=== PATIENT | male | born 1930 | race Caucasian/White ===

== ENCOUNTER 2017-10-10 10:19 | Day surgery (SDC) | payer OTHER, BC ==
[2017-10-09 14:23] VITALS: BMI 27.1
[2017-10-10] MEDS ORDERED: PROPOFOL 20 ML ONE ×2 (12:26)
[2017-10-10 13:26] VITALS: TEMP 97.9
[2017-10-10 14:48] VITALS: BP 146/70; PULSE 60
== END 2017-10-10 15:41 | disposition home or self-care (01) ==
LOC: JASU-ENDO 10:19
PROVIDERS: ATTEND Internal Medicine Gastroenterology
PROC: 0DB68ZX Excision of Stomach, Via Natural or Artificial Opening Endoscopic, Diagnostic (ICD-10-PCS; 2017-10-10)
PROC: 0DB98ZX Excision of Duodenum, Via Natural or Artificial Opening Endoscopic, Diagnostic (ICD-10-PCS; principal; 2017-10-10 12:15)
DX: K29.70 Gastritis, unspecified, without bleeding (principal); K29.80 Duodenitis without bleeding
CPT/HCPCS: 88305-TC; 88342-TC

== ENCOUNTER 2018-01-02 13:32 | Inpatient (IN) | payer OTHER, BC ==
[2018-01-02 14:37] LABS: BASO % 0.4 % (0-2.0); HEMATOCRIT 41.8 % (35.4-49); LYMPH % 13.9 % (8-40); MCH 30.8 pg (25.7-33.7); MCHC 33.4 g/dl (32.0-35.9); MEAN CELL VOLUME 92.2 fl (80-96); MEAN PLT VOLUME 8.4 fl (7.5-11.1); MONO % 12.3 % (3.8-10.2); NEUT % 73.4 % (42.8-82.8); PLATELET COUNT 172 K/MM3 (134-434); RBC 4.54 M/mm3 (4.00-5.60); RDW 14.2 % (11.9-15.9); WHITE BLOOD COUNT 8.2 K/mm3 (4.0-10.0)
[2018-01-02] MEDS ORDERED: SODIUM CHLORIDE 1,000 ML IV STA (14:38)
[2018-01-02 14:39] LABS: VENOUS PH 7.4 (7.32-7.42); VENOUS PO2 39.1 mmHg (28-48)
--- NOTE | 2018-01-02 14:46 | PDOC ---
History of Present Illness - General Chief Complaint: Weakness Stated Complaint: WEAKNESS,VATIGUE Time Seen by Provider: 01/02/18 13:44 History Source: Patient Exam Limitations: Other (pt seems altered/confused) - History of Present Illness Initial Comments: 01/02/18 14:42 *difficult to obtain HPI from patient, he seems altered/confused. HPI: Pt is an 87yo m with PMH of hld, depression, sleep apnea, Lyme disease BIBA to ED after friends at [employer] found pt sleeping in his car and were worried. Pt says he has been feeling more fatigued, has no energy, and doesn't feel like eating or doing anything for the past several months. Pt says he usually sleeps in his car because his house "is a mess". Pt lives alone. He denies SI, HI, hallucinations, chest pain, cough, sob, headache, changes in vision, throat pain , abdominal pain, n/v/d. PMH: As per HPI. PSH: rotator cuff surgery Past illnesses: Lyme disease 2-3 years ago Meds: Buproprion Allergies: PCN Social: denies Past History - Past Medical History Allergies/Adverse Reactions: Allergies Allergy/AdvReac Type Severity Reaction Status Date / Time Penicillins Allergy Verified 01/02/18 13:57 Home Medications: Ambulatory Orders Rosuvastatin Calcium [Crestor] 20 mg PO DAILY 11/12/13 Bupropion HCl [Wellbutrin Sr] 150 mg PO DAILY 10/09/17 GI Disorders: Yes (GERD) Hypercholesterolemia: Yes - Surgical History Orthopedic Surgery: Yes (RIGHT SHOULDER SX WITH TITANIUM TAMIE) - Suicide/Smoking/Psychosocial Hx Smoking History: Never smoked Information on smoking cessation initiated: No Hx Alcohol Use: No Drug/Substance Use Hx: No Substance Use Type: None Hx Substance Use Treatment: No Review of Systems - Review of Systems Able to Perform ROS?: Yes Comments:: 01/02/18 16:18 ROS: Constitutional: fatigue HEENT:No Rhinorrhea, nasal congestion, visual changes, eye itching, earache, headache, sore throat, neck pain, Cardiovascular: No chest pain, syncope, palpitations Respiratory: No Cough, SOB, Hemoptysis Gastrointestinal: No Abdominal pain, Nausea, Vomiting, Constipation, Diarrhea, bloody stools Genitourinary: Frequency. No Dysuria, Hematuria, incontinence Musculoskeletal: No Myalgia, arthralgia, ROM, joint stiffness, weakness, Skin: No rashes Neurologic: No Headache, Dizziness, Numbness, Weakness, or Tingling Genital: No testicular pain Psychiatric: No Hallucinations. No SI or HI *Physical Exam - Vital Signs Last Vital Signs Temp Pulse Resp BP Pulse Ox 101.8 F H 81 18 129/73 95 01/02/18 13:50 01/02/18 13:50 01/02/18 13:50 01/02/18 13:50 01/02/18 13:50 - Physical Exam Comments: 01/02/18 16:21 Pt falling asleep in bed. Physical Exam: General Appearance: Nourished. No Apparent Distress HEENT: Atraumatic, normocephalic, EOMI, CANELO. No Conjunctival Injection, Scleral Icterus, Pharyngeal Erythema, Tonsillar Exudate, Tonsillar Erythema. Neck: No Cervical Lymphadenopathy, No tracheal deviation Respiratory/Chest: Lungs Clear, Normal Breath Sounds. No Crackles, Rales, Rhonchi, Wheezing Cardiovascular: Regular Rhythm, Regular Rate, Peripheral pulses palpable bilaterally. No JVD, Murmur, Gallops, Rubs, Carotid Bruit, Edema, Varicose Veins Gastrointestinal/Abdominal: Normal Bowel Sounds, Soft. No Guarding, Rebound, Tenderness Musculoskeletal: Full ROM No CVA Tenderness, No tenderness, No joint swelling Extremity: Normal Capillary Refill Integumentary: Skin appears to be slightly jaundiced. Dry, Warm. No rashes, lesions Neurologic: Aphasic. 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, Fully Oriented, Alert, Normal Mood/ Affect, Normal Response, Motor Strength 5/5, Full sensation, 2+ Reflexes : No rashes, ulcerations, discharge ED Treatment Course - LABORATORY CBC & Chemistry Diagram: 01/02/18 13:50 01/02/18 13:50 - ADDITIONAL ORDERS Additional order review: Laboratory Results 01/02/18 13:50 VBG pH 7.40 POC VBG pCO2 43.0 POC VBG pO2 39.1 Mixed VBG HCO3 26.3 H - RADIOLOGY Radiology Studies Ordered: Category Date Time Status HEAD CT WITHOUT CONTRAST [CT] Stat CT Scan 01/02/18 14:31 Ordered CHEST X-RAY PORTABLE* [RAD] Stat Radiology 01/02/18 14:23 Taken Medical Decision Making - Medical Decision Making 01/02/18 16:44 87yo m with PMH of hld, depression BIBA from [employer] because pt was not himself. Pt complaining of several months of fatigue. Aphasic Vitals: febrile at 101, normotensive, not tachycardic PE: aphasia, hard to follow AOx3. h/o Lyme Pt febrile and seems to have ams although we do not know baseline. Ordered sepsis workup and head CT. Pt's cousin, Raul came into the room. 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 Labs: no WBC, electrolytes wnl. UA: 1+blood with 15 RBC. CXR: no acute pathology, no changes compared to xray done in 2013 CT head: *DC/Admit/Observation/Transfer - Referrals Referrals: Tia Richards MD [Primary Care Provider] - - Patient Instructions - Post Discharge Activity
[2018-01-02 14:48] LABS: INR 1.09 (0.83-1.09); PROTHROMBIN TIME (PATIENT) 12.9 SEC (9.7-13.0)
[2018-01-02 14:51] LABS: ACTIVATED PTT 30.3 SECONDS (25.2-36.5)
[2018-01-02 14:58] LABS: ALBUMIN 3.4 g/dl (3.4-5.0); ALK PHOS 51 U/L (45-117); ANION GAP 5 MMOL/L (8-16); BILIRUBIN,TOTAL 0.7 mg/dL (0.2-1); BLOOD UREA NITROGEN 16 mg/dL (7-18); CALCIUM 8.6 mg/dL (8.5-10.1); CHLORIDE 106 mmol/L (98-107); CO2 24 mmol/L (21-32); GLUCOSE,RANDOM 124 mg/dL (74-106); POTASSIUM 3.9 mmol/L (3.5-5.1); SGOT/AST 20 U/L (15-37); SGPT/ALT 23 U/L (13-61); SODIUM 134 mmol/L (136-145); TOT PROT 6.8 g/dl (6.4-8.2)
[2018-01-02] MEDS ORDERED: ACETAMINOPHEN 1000 MG/100 ML VIAL (NON FORMULARY) IVPB ONE (14:59)
[2018-01-02] MEDS ORDERED: ACETAMINOPHEN INJECTION 100 ML IVPB ONE (15:06)
[2018-01-02 15:11] LABS: URINE APPEARANCE CLEAR; URINE BILIRUBIN NEGATIVE (<2.0 mg/dL); URINE COLOR YELLOW; URINE GLUCOSE (UA) NEGATIVE (NEGATIVE); URINE KETONE TRACE (NEGATIVE); URINE LEUK ESTERASE NEGATIVE (NEGATIVE); URINE NITRITE NEGATIVE (NEGATIVE)
[2018-01-02 15:12] LABS: URINE PROTEIN 1+ (NEGATIVE)
[2018-01-02 15:15] LABS: EPI CELLS RARE /HPF (FEW); URINE MUCUS FEW
--- NOTE | 2018-01-02 17:14 | PDOC ---
Attending Attestation - Resident Resident Name: CandiceKey - ED Attending Attestation I have performed the following: I have examined & evaluated the patient, The case was reviewed & discussed with the resident, I agree w/resident's findings & plan, Exceptions are as noted - HPI HPI: 01/02/18 17:10 87M with h/o GERD, sleep apnea, depression, HLD presents to ED with generalized weakness. Per EMS, pt was found sleeping in his car in front of the [employer] this morning, prompting people to call 911. Pt denies any focal complaints but states that he has been extremely fatigued. He denies F/C. Denies CP/SOB. Denies abdominal pain/N/V/D. He states that he has been feeling fatigued for several months, and it has progressively worsened. allergies: penicillin" - Physicial Exam PE: 01/02/18 17:12 "GENERAL: Awake, alert, and fully oriented, in no acute distress. HEAD: No signs of trauma EYES: PERRLA, EOMI, sclera anicteric, conjunctiva clear ENT: Auricles normal inspection, hearing grossly normal, nares patent, oropharynx clear without exudates. Moist mucosa NECK: Nontender, no stepoffs, Normal ROM, supple, no lymphadenopathy, JVD, or masses LUNGS: Breath sounds equal, clear to auscultation bilaterally. No wheezes, and no crackles HEART: Regular rate and rhythm, normal S1 and S2, no murmurs, rubs or gallops ABDOMEN: Soft, nontender, normoactive bowel sounds. No guarding, no rebound. No masses EXTREMITIES: Normal range of motion, no edema. No clubbing or cyanosis. No cords, erythema, or tenderness NEUROLOGICAL: Cranial nerves II through XII intact. 5/5 strength and sensation in all extremities, Normal speech, normal gait, normal cerebellar function SKIN: Warm, Dry, normal turgor, no rashes or lesions noted." - Medical Decision Making 01/02/18 17:12 87 M with fatigue and generalized weakness, found to be febrile in ED to 101.8. Pt with no focal infectious symptoms. Pt without MCKAY/neck pain and has normal mental status with no neuro deficits, making meningitis unlikely. - Labs, cultures - CXR, UA - IVF, tylenol
[2018-01-02] MEDS ORDERED: SODIUM CHLORIDE 1,000 ML IV SCH (21:45)
--- NOTE | 2018-01-02 22:49 | HP ---
CHIEF COMPLAINT: fatigue, fevers, profound weakness PCP: Dr. Richards HISTORY OF PRESENT ILLNESS: Patient is an 87 year old male with a significant past medical history of sleep apnea, lymes disease, HLD, depression. Patient presents to the ED via ambulance after his friends found him sleeping in his car and not himself. Patient lives alone and states that he has been very fatigued and sleeps alot more than usual. He states he has no energy to do anything and doesn't feel like eating or doing anything for the past several months. He states that he sleeps in his car because he is too fatigued to go into his home and has been sleeping on and off in his car for several months. He lives alone. He denies chest pain, denies shortness of breath. Denies fevers, but states he has intermittent chills. He denies cough, shortness of breath, hallucinations, chest pain, changes in vision, throat pain, abdominal pain. In the ED he was able to answer questions appropriately, but appeared profoundly lethargic and weak and just wanted to rest. He knew where he was and why he was here. able to state his name. + facial symmetry, speech not slurred. ER course was notable for: (1) normal head ct (2) mild hyponatremia (3) febrile 102F Recent Travel: none PAST MEDICAL HISTORY: PAST SURGICAL HISTORY:rotator cuff surgery Social History: Smoking: denies Alcohol:denies Drugs: denies Family History: Allergies Penicillins Allergy (Verified 01/02/18 13:57) HOME MEDICATIONS: Home Medications Medication Instructions Recorded Unobtainable 01/02/18 REVIEW OF SYSTEMS CONSTITUTIONAL: Absent: fever, diaphoresis HEENT: Absent: rhinorrhea, nasal congestion, throat pain, throat swelling, difficulty swallowing, mouth swelling, ear pain, eye pain, visual changes CARDIOVASCULAR: Absent: chest pain, syncope, palpitations, irregular heart rate, lightheadedness , peripheral edema RESPIRATORY: Absent: cough, shortness of breath, dyspnea with exertion, orthopnea, wheezing, stridor, hemoptysis GASTROINTESTINAL: Absent: abdominal pain, abdominal distension, nausea, vomiting, diarrhea, constipation, melena, hematochezia GENITOURINARY: Absent: dysuria, frequency, urgency, hesitancy, hematuria, flank pain, genital pain MUSCULOSKELETAL: Absent: myalgia, arthralgia, joint swelling, back pain, neck pain SKIN: Absent: rash, itching, pallor HEMATOLOGIC/IMMUNOLOGIC: Absent: easy bleeding, easy bruising, lymphadenopathy, frequent infections ENDOCRINE: Absent: unexplained weight gain, unexplained weight loss, heat intolerance, cold intolerance NEUROLOGIC: Absent: headache, focal weakness or paresthesias, dizziness, unsteady gait, seizure, bladder or bowel incontinence PHYSICAL EXAMINATION Vital Signs - 24 hr 01/02/18 01/02/18 01/02/18 13:50 14:00 15:08 Temperature 101.8 F H 102.7 F H Pulse Rate 81 Pulse Rate [ Right] Respiratory 18 Rate Blood Pressure 129/73 Blood Pressure [Left Arm] O2 Sat by Pulse 95 96 Oximetry (%) 01/02/18 17:00 Temperature 98.5 F Pulse Rate Pulse Rate [ 83 Right] Respiratory 18 Rate Blood Pressure Blood Pressure 116/63 [Left Arm] O2 Sat by Pulse 98 Oximetry (%) GENERAL: lethargic, weak, in no acute distress. HEAD: Normal with no signs of trauma. EYES: Pupils equal, round and reactive to light EARS, NOSE, THROAT: Ears normal, nares patent, oropharynx clear without exudates. Moist mucous membranes. NECK: Normal range of motion, supple without lymphadenopathy, JVD, or masses. LUNGS: Breath sounds equal, clear to auscultation bilaterally. HEART: Regular rate and rhythm ABDOMEN: Soft, nontender, not distended, normoactive bowel sounds, no guarding, no rebound, no masses. No hepatomegaly or splenomegaly. MUSCULOSKELETAL: Normal range of motion at all joints. No bony deformities or tenderness. No CVA tenderness. UPPER EXTREMITIES:No peripheral edema. LOWER EXTREMITIES: No peripheral edema. NEUROLOGICAL: Normal speech. Normal gait. PSYCHIATRIC: withdrawn, flat affect Laboratory Results - last 24 hr 01/02/18 01/02/18 01/02/18 13:50 13:50 13:50 WBC 8.2 RBC 4.54 Hgb 14.0 Hct 41.8 MCV 92.2 MCH 30.8 MCHC 33.4 RDW 14.2 Plt Count 172 MPV 8.4 Absolute Neuts (auto) 6.0 Neutrophils % 73.4 Lymphocytes % 13.9 Monocytes % 12.3 H Eosinophils % 0.0 Basophils % 0.4 Nucleated RBC % 0 PT with INR 12.90 INR 1.09 PTT (Actin FS) 30.3 VBG pH 7.40 POC VBG pCO2 43.0 POC VBG pO2 39.1 Mixed VBG HCO3 26.3 H Sodium Potassium Chloride Carbon Dioxide Anion Gap BUN Creatinine Creat Clearance w eGFR Random Glucose Lactic Acid Calcium Total Bilirubin AST ALT Alkaline Phosphatase Troponin I Total Protein Albumin TSH Free T4 Urine Color Urine Appearance Urine pH Ur Specific [place] Urine Protein Urine Glucose (UA) Urine Ketones Urine Blood Urine Nitrite Urine Bilirubin Urine Urobilinogen Ur Leukocyte Esterase Urine WBC (Auto) Urine RBC (Auto) Ur Epithelial Cells Urine Mucus 01/02/18 01/02/18 01/02/18 13:50 13:50 13:50 WBC RBC Hgb Hct MCV MCH MCHC RDW Plt Count MPV Absolute Neuts (auto) Neutrophils % Lymphocytes % Monocytes % Eosinophils % Basophils % Nucleated RBC % PT with INR INR PTT (Actin FS) VBG pH POC VBG pCO2 POC VBG pO2 Mixed VBG HCO3 Sodium 134 L Potassium 3.9 Chloride 106 Carbon Dioxide 24 Anion Gap 5 L BUN 16 Creatinine 1.0 Creat Clearance w eGFR > 60 Random Glucose 124 H Lactic Acid 1.2 Calcium 8.6 Total Bilirubin 0.7 AST 20 ALT 23 Alkaline Phosphatase 51 Troponin I < 0.02 Total Protein 6.8 Albumin 3.4 TSH Free T4 Urine Color Urine Appearance Urine pH Ur Specific [place] Urine Protein Urine Glucose (UA) Urine Ketones Urine Blood Urine Nitrite Urine Bilirubin Urine Urobilinogen Ur Leukocyte Esterase Urine WBC (Auto) Urine RBC (Auto) Ur Epithelial Cells Urine Mucus 01/02/18 01/02/18 01/02/18 15:00 17:50 17:50 WBC RBC Hgb Hct MCV MCH MCHC RDW Plt Count MPV Absolute Neuts (auto) Neutrophils % Lymphocytes % Monocytes % Eosinophils % Basophils % Nucleated RBC % PT with INR INR PTT (Actin FS) VBG pH POC VBG pCO2 POC VBG pO2 Mixed VBG HCO3 Sodium Potassium Chloride Carbon Dioxide Anion Gap BUN Creatinine Creat Clearance w eGFR Random Glucose Lactic Acid 0.9 Calcium Total Bilirubin AST ALT Alkaline Phosphatase Troponin I Total Protein Albumin TSH 0.28 L Free T4 1.01 Urine Color Yellow Urine Appearance Clear Urine pH 5.0 Ur Specific [place] 1.024 Urine Protein 1+ H Urine Glucose (UA) Negative Urine Ketones Trace H Urine Blood 1+ H Urine Nitrite Negative Urine Bilirubin Negative Urine Urobilinogen 2.0 Ur Leukocyte Esterase Negative Urine WBC (Auto) 1 Urine RBC (Auto) 11 Ur Epithelial Cells Rare Urine Mucus Few ASSESSMENT/PLAN: Patient is an 87 year old male with a significant past medical history of sleep apnea, lymes disease, HLD, depression. Patient presents to the ED via ambulance after his friends found him sleeping in his car and not himself. Patient lives alone and states that he has been very fatigued and sleeps alot more than usual. He states he has no energy to do anything and doesn't feel like eating or doing anything for the past several months. He states that he sleeps in his car because he is too fatigued to go into his home and has been sleeping on and off in his car for several months. He lives alone. He denies chest pain, denies shortness of breath. Denies fevers, but states he has intermittent chills. He denies cough, shortness of breath, hallucinations, chest pain, changes in vision, throat pain, abdominal pain. In the ED he was able to answer questions appropriately, but appeared profoundly lethargic and weak and just wanted to rest. He knew where he was and why he was here. able to state his name. + facial symmetry, speech not slurred. Acute metabolic encephalopathy, unknown etiology Monitor on tele to rule out cardiac cause. head CT negative. chest xray negative. blood gas wnl. Monitor mental status. Will gently hydrate overnight Febrile in the ED at 102F with normal wbc and stable vitals. has been tovar cultured. lactic acid wnl. chest xray w/o acute process. will order: tele monitoring troponins carotid doppler echocardiogram BGMs q6 will order brain mri. levaquin iv x 1 plan: unclear etiolgy of ams and fevers - continue to monitor mental status will give dose of levaquin iv x 1 now for fevers and chills (has pcn allergy), ID consulted Gentle hydration, consult dietary for poor PO intake lyme panel ordered by ED utox, etoh levels ordered fen ivf NS @ 50cc/hr monitor electrolytes low salt diet prophy heparin tid Visit type - Emergency Visit Emergency Visit: Yes ED Registration Date: 01/02/18 Care time: The patient presented to the Emergency Department on the above date and was hospitalized for further evaluation of their emergent condition. - New Patient This patient is new to me today: Yes Date on this admission: 01/02/18 - Critical Care Critical Care patient: No
[2018-01-03] MEDS ORDERED: HEPARIN NA (PORCINE) 5,000 UNITS/ML 1ML VIAL ONE ×2 (06:09→15:19)
[2018-01-03] MEDS: HEPARIN NA (PORCINE) 5,000 UNITS/ML 1ML VIAL SQ SCH ×3 (06:15→22:15)
[2018-01-03 06:48] LABS: BASO % 0.3 % (0-2.0); EOS % 0.2 % (0-4.5); HEMOGLOBIN 13.1 GM/dL (11.7-16.9); LYMPH % 13.5 % (8-40); MCH 30.7 pg (25.7-33.7); MCHC 33.7 g/dl (32.0-35.9); MEAN CELL VOLUME 91.3 fl (80-96); MEAN PLT VOLUME 8.2 fl (7.5-11.1); MONO % 9.7 % (3.8-10.2); NEUT % 76.3 % (42.8-82.8); PLATELET COUNT 142 K/MM3 (134-434); RBC 4.27 M/mm3 (4.00-5.60); RDW 13.6 % (11.9-15.9); WHITE BLOOD COUNT 7.2 K/mm3 (4.0-10.0)
[2018-01-03 06:56] LABS: INR 1.15 (0.83-1.09); PROTHROMBIN TIME (PATIENT) 13.6 SEC (9.7-13.0)
[2018-01-03 07:04] LABS: CHOLESTEROL 149 mg/dL (50-200); HDL CHOLESTEROL 70 mg/dL (40-60); TRIGLYCERIDES 106 mg/dL (0-150)
[2018-01-03 07:09] LABS: ALK PHOS 45 U/L (45-117); ANION GAP 11 MMOL/L (8-16); BILIRUBIN,TOTAL 0.6 mg/dL (0.2-1); BLOOD UREA NITROGEN 13 mg/dL (7-18); CALCIUM 7.9 mg/dL (8.5-10.1); CHLORIDE 108 mmol/L (98-107); CO2 21 mmol/L (21-32); CREATININE 0.8 mg/dL (0.55-1.3); GLUCOSE,RANDOM 113 mg/dL (74-106); MAGNESIUM 1.9 mg/dL (1.8-2.4); PHOSPHOROUS 1.8 mg/dL (2.5-4.9); POTASSIUM 3.7 mmol/L (3.5-5.1); SGOT/AST 20 U/L (15-37); SGPT/ALT 23 U/L (13-61); SODIUM 140 mmol/L (136-145); TOT PROT 6.1 g/dl (6.4-8.2)
--- NOTE | 2018-01-03 10:48 | PN ---
Progress Note (short form) - Note Progress Note: ID Consult dictated FUO ? occult infection ? occult malignancy ? connective tissue dz Obtain cultures, ESR/CRP CT C/A/P Echocardiogram HIV test Observe off antibiotics
--- NOTE | 2018-01-03 10:51 | PN ---
Progress Note, Physician Chief Complaint: Mr Freedman complains of tiredness and fatigue for 1 year. Denies cp, sob, n/v. - Current Medication List Current Medications: Active Medications Heparin Sodium (Porcine) (Heparin -) 5,000 unit SQ TID [facility] Last Admin: 01/03/18 06:15 Dose: 5,000 unit Sodium Chloride (Normal Saline -) 1,000 mls @ 50 mls/hr IV ASDIR [facility] Stop: 01/03/18 21:43 Last Admin: 01/02/18 22:00 Dose: 50 mls/hr - Objective Vital Signs: Vital Signs Temperature 37.2 C 01/03/18 06:51 Pulse Rate 87 01/03/18 06:51 Respiratory Rate 18 01/03/18 06:51 Blood Pressure 141/84 01/03/18 06:51 O2 Sat by Pulse Oximetry (%) 96 01/03/18 06:51 Constitutional: Yes: Well Nourished, No Distress, Calm Cardiovascular: Yes: Regular Rate and Rhythm. No: Gallop, Murmur, Rub Respiratory: Yes: Regular, CTA Bilaterally. No: Rales, Rhonchi, Wheezes Gastrointestinal: Yes: Normal Bowel Sounds, Soft. No: Distention, Tenderness Extremities: Yes: WNL Edema: No Labs: CBC, BMP 01/03/18 06:00 01/03/18 06:00 INR, PTT INR 1.15 (0.83-1.09) H 01/03/18 06:00 Problem List - Problems (1) Pneumonia Assessment/Plan: -patient with fevers and consolidation on CT scan with hilar adenopathy -will treat for CAP -given levaquin in the ED, will continue -ID also following -monitor for improvement Code(s): J18.9 - PNEUMONIA, UNSPECIFIED ORGANISM (2) Fever of unknown origin (FUO) Assessment/Plan: -fever possibly secondary to pneumonia seen on CT scan -however could have secondary cause as well -continue work up Code(s): R50.9 - FEVER, UNSPECIFIED (3) Hypophosphatemia Assessment/Plan: -replace Code(s): E83.39 - OTHER DISORDERS OF PHOSPHORUS METABOLISM (4) Depression Assessment/Plan: -continue remeron Code(s): F32.9 - MAJOR DEPRESSIVE DISORDER, SINGLE EPISODE, UNSPECIFIED (5) HLD (hyperlipidemia) Assessment/Plan: -continue crestor Code(s): E78.5 - HYPERLIPIDEMIA, UNSPECIFIED (6) Fatigue Assessment/Plan: -chronic -pneumonia possibly exacerbating but not underlying cause -PT consult -follow up Lyme test and MRI Code(s): R53.83 - OTHER FATIGUE
--- NOTE | 2018-01-03 11:18 | EKG ---
Test Reason : Blood Pressure : / mmHG Vent. Rate : 082 BPM Atrial Rate : 082 BPM P-R Int : 184 ms QRS Dur : 074 ms QT Int : 378 ms P-R-T Axes : 030 -09 002 degrees QTc Int : 441 ms SINUS RHYTHM WITH SINUS ARRHYTHMIA WITH OCCASIONAL PREMATURE VENTRICULAR COMPLEXES OTHERWISE NORMAL ECG WHEN COMPARED WITH ECG OF 13-JUN-2007 14:33, PREMATURE VENTRICULAR COMPLEXES ARE NOW PRESENT Confirmed by VARUN MAC, [place] ([id number]) on 01/03/2018 11:18:20 AM Referred By: Confirmed By:KY BOND MD
--- NOTE | 2018-01-03 12:12 | ECHO ---
Version: 1 Name: PHOEBE LEDEZMA Exam: Adult Echocardiogram Study Date: 01/03/2018, 7:28 AM Age: 87 Years MMode/2D Measurements & Calculations LVOT diam: 1.96 cm Ao root diam: 3.8 cm Doppler Measurements & Calculations MV E max ramu: 106.0 cm/sec Med E/e': 15.5 MV A max ramu: 77.1 cm/sec Med Peak E' Ramu: 6.9 cm/sec MV E/A: 1.37 Lat E/e': 13.2 Lat Peak E' Ramu: 8.1 cm/sec TR max ramu: 373.3 cm/sec TR max P.8 mmHg Procedure A two-dimensional transthoracic echocardiogram with color flow and Doppler was performed. The study was technically difficult with many images being suboptimal in quality. Left Ventricle The left ventricular size, thickness and function are normal. The left ventricular ejection fraction is normal. Left Ventricular Filling pattern is normal for age. Regional wall motion abnormalities canno t be excluded due to limited visualization. Right Ventricle The right ventricle is not well visualized. Atria Normal left and right atrial size and function. Mitral Valve There is mild mitral valve thickening. There is no mitral valve stenosis. There is mild mitral regur gitation. Tricuspid Valve There is mild tricuspid valve thickening. There is no tricuspid stenosis. Right ventricular systolic pressure is elevated at >60mmHg. Aortic Valve The aortic valve is trileaflet. There is mild aortic sclerosis.;. There is mild aortic valve thicken ing. No hemodynamically significant valvular aortic stenosis. No aortic regurgitation is present. Pulmonic Valve The pulmonic valve is not well visualized. Great Vessels Borderline aortic root dilatation. Pericardium/Pleura There is no pericardial effusion. Summary Statements The left ventricular size, thickness and function are normal The left ventricular ejection fraction is normal. Regional wall motion abnormalities cannot be excluded due to limited visualization. The study was technically difficult with many images being suboptimal in quality. Right ventricular systolic pressure is elevated at >60mmHg. Borderline aortic root dilatation. Left Ventricular Filling pattern is normal for age. MD Garcia Wilkerson 01/03/2018, 12:12 PM Ordering Physician: Feliz Ku Referring Physician: Franky Ramos Performed By: Tamanna Hines
--- NOTE | 2018-01-03 12:18 | CONS ---
DATE OF CONSULTATION: DATE OF DICTATION: 01/03/2018 HISTORY: The patient is an 87-year-old male evaluated for fever of unknown origin. The patient was admitted to the hospital after he was found to have altered mental status. According to friends, he was found sleeping in his car and was not in his usual state of mind. He was brought to the emergency room where CAT scan of the head was negative. He was noted to have fever to 102.7. Cultures were obtained. He was empirically treated with Levaquin. The patient reports he has not been feeling well for the past 1 year. He is unable to pinpoint exactly what has been bothering him. He just feels unwell. He reports being seen as an outpatient by his primary where workup has been unrevealing. He denies any high-grade fever, shaking chills, night sweats, weight loss. No complaints of chest pain, shortness of breath, cough, or sputum production. Denies dysuria or hematuria. No complaints of urinary retention. Denies vomiting or diarrhea. No reports of rash. He lives at home alone. He does not spend time outdoors. He denies any tick or mosquito bites. No recent travel. He did have dental cleaning approximately 2 weeks ago; however, symptoms long proceeded his dental cleaning. He denies blood transfusions. There were no recent hospitalizations. The patient reports a history of Lyme disease in the past for which he was treated with a long course of IV antibiotic therapy by a provider he was unable to provide the name of. Of additional note, last year he was noted to have dilatation of the biliary tract for which he was followed by Dr. Jett Velásquez. An MRI was performed last year, which showed cholelithiasis without evidence of choledocholithiasis, dilated pancreatic duct with no suspicious enhancing pancreatic lesions. PAST MEDICAL HISTORY: As above. Positive for hyperlipidemia, depression, and Lyme disease. ALLERGIES: PENICILLIN. SOCIAL HISTORY: He lives at home. He is single. He is a nonsmoker, nondrinker. SYSTEMS REVIEW: Neurologic: No loss of consciousness, seizure activity, focal weakness. Cardiac: Negative chest pain or palpitations. Respiratory: Negative cough or sputum production. Gastrointestinal: Negative vomiting or diarrhea. Genitourinary: Negative for urinary tract infection. LABORATORY DATA: White count 7.2, neutrophils 76, lymphocytes 13, monocytes 9, hematocrit 39, platelet count 142, BUN 13, creatinine 0.8, glucose 113. Liver enzymes normal. Urinalysis, 1 white cell. Chest x-ray negative for acute infiltrate. Influenza swab negative. Blood and urine cultures are pending. PHYSICAL EXAMINATION: General: He is awake and alert. He is not acutely toxic appearing. He is not septic appearing. He does appear weak. HEENT: Sclerae anicteric. No conjunctival hemorrhages. Oropharynx negative. Neck: Supple. No palpable nodes. Heart: Sounds S1, S2. No murmur. Lungs: Clear. Abdomen: Obese, soft, nontender. Extremities: Negative for edema. No rashes noted. Negative Homans sign. IMPRESSION: Fever of unknown origin. Differential diagnosis includes occult infection versus occult malignancy versus connective tissue disorder. PLAN: Cultures have been obtained. Obtain sedimentation rate, C-reactive protein, CAT scan of the chest, abdomen, and pelvis to assess for occult malignancy, lymphadenopathy, and organomegaly. Obtain echocardiogram. HIV testing. Further recommendations pending. Fever of unknown origin workup. Observe off antibiotics. Case discussed with the patient's primary care provider. Thank you for the kind referral. ALEXANDER YUN M.D. [id number]
[2018-01-03] MEDS ORDERED: ACETAMINOPHEN 325 MG TABLET (FP) ONE (12:44)
[2018-01-03] MEDS ORDERED: POTASSIUM PHOSPHATE 16 MM in SODIUM CHLORIDE 250 ML IVPB ONE (12:45)
[2018-01-03] MEDS: ACETAMINOPHEN 325 MG TABLET (FP) PO PRN (14:03)
[2018-01-03] MEDS: NAPH,MB-DB/K PH,MBDB POWDER PACKET PO SCH ×2 (18:28→22:15)
[2018-01-03 22:13] VITALS: BMI 27.2
[2018-01-03] MEDS: MIRTAZAPINE 15 MG TABLET (FP) PO SCH (22:15)
[2018-01-03] MEDS: ROSUVASTATIN CA 5 MG TABLET (FP) PO SCH (22:15)
[2018-01-04] MEDS: NAPH,MB-DB/K PH,MBDB POWDER PACKET PO SCH ×3 (06:15→21:37)
[2018-01-04] MEDS: HEPARIN NA (PORCINE) 5,000 UNITS/ML 1ML VIAL SQ SCH (06:15)
[2018-01-04] MEDS: ACETAMINOPHEN 325 MG TABLET (FP) PO PRN (06:30)
[2018-01-04 07:20] LABS: BASO % 0.5 % (0-2.0); EOS % 0.9 % (0-4.5); HEMATOCRIT 38.9 % (35.4-49); HEMOGLOBIN 13.2 GM/dL (11.7-16.9); LYMPH % 24.9 % (8-40); MCH 30.9 pg (25.7-33.7); MEAN CELL VOLUME 91.1 fl (80-96); MEAN PLT VOLUME 8.6 fl (7.5-11.1); NEUT % 58.7 % (42.8-82.8); PLATELET COUNT 148 K/MM3 (134-434); RBC 4.27 M/mm3 (4.00-5.60); RDW 13.4 % (11.9-15.9); WHITE BLOOD COUNT 5.7 K/mm3 (4.0-10.0)
[2018-01-04 07:49] LABS: ALBUMIN 2.7 g/dl (3.4-5.0); ALK PHOS 47 U/L (45-117); ANION GAP 9 MMOL/L (8-16); BILIRUBIN,DIRECT 0.2 mg/dL (0.0-0.2); BILIRUBIN,TOTAL 0.7 mg/dL (0.2-1); BLOOD UREA NITROGEN 14 mg/dL (7-18); CALCIUM 8.1 mg/dL (8.5-10.1); CHLORIDE 107 mmol/L (98-107); CO2 24 mmol/L (21-32); CREATININE 0.8 mg/dL (0.55-1.3); GLUCOSE,RANDOM 100 mg/dL (74-106); PHOSPHOROUS 2.7 mg/dL (2.5-4.9); POTASSIUM 3.6 mmol/L (3.5-5.1); SGOT/AST 25 U/L (15-37); SGPT/ALT 24 U/L (13-61); SODIUM 140 mmol/L (136-145); TOT PROT 5.9 g/dl (6.4-8.2)
--- NOTE | 2018-01-04 11:26 | CON.CARD ---
Consult Consult Specialty:: Cardiology Referred by:: Richard Reason for Consultation:: tachycardia - History of Present Illness Chief Complaint: fatigue History of Present Illness: 87M h/o FLASH, lyme disease, HLD, depression p/w fatigue. No chest pain, palps, dizzy, lightheaded. Has been feeling this way for several days. Admitted with fever, PNA. on abx. Overnight tele showed afib with rates 100s-110s, occ 120s- 140s. on abx for PNA. Patient sees Dr. Zhao for cardiology, he denies any cardiac history. - Alcohol/Substance Use Hx Alcohol Use: No - Smoking History Smoking history: Never smoked Home Medications - Allergies Allergies/Adverse Reactions: Allergies Allergy/AdvReac Type Severity Reaction Status Date / Time Penicillins Allergy Verified 01/02/18 13:57 - Home Medications Home Medications: Ambulatory Orders Unobtainable 01/02/18 Family Disease History - Family Disease History Family History: Unremarkable Review of Systems - Review of Systems Constitutional: reports: Fever, Lethargy, Weakness Eyes: reports: No Symptoms HENT: reports: No Symptoms Neck: reports: No Symptoms Cardiovascular: reports: No Symptoms Respiratory: reports: No Symptoms Gastrointestinal: reports: No Symptoms Genitourinary: reports: No Symptoms Musculoskeletal: reports: No Symptoms Integumentary: reports: No Symptoms Neurological: reports: No Symptoms Endocrine: reports: No Symptoms Hematology/Lymphatic: reports: No Symptoms Psychiatric: reports: No Symptoms Vital Signs: Vital Signs Temperature 100.5 F H 01/04/18 06:00 Pulse Rate 117 H 01/04/18 06:00 Respiratory Rate 20 01/04/18 06:00 Blood Pressure 125/65 01/04/18 06:00 O2 Sat by Pulse Oximetry (%) 97 01/03/18 21:52 Constitutional: Yes: Well Nourished, No Distress, Calm Eyes: Yes: Conjunctiva Clear, EOM Intact HENT: Yes: Atraumatic, Normocephalic Neck: Yes: Supple, Trachea Midline Respiratory: Yes: Regular, CTA Bilaterally Gastrointestinal: Yes: Normal Bowel Sounds, Soft Renal/: Yes: WNL Cardiovascular: Yes: Pulse Irregular JVD: No Heart Sounds: Yes: S1, S2 Musculoskeletal: Yes: WNL Extremities: Yes: WNL Edema: No Peripheral Pulses: 2+ Left Doralis Pedis, 2+ Right Dorsalis Pedis Neurological: Yes: Alert, Oriented Psychiatric: Yes: Alert, Oriented - Other Data Labs, Other Data: CBC, BMP 01/04/18 05:30 01/04/18 05:30 INR, PTT INR 1.15 (0.83-1.09) H 01/03/18 06:00 Assessment/Plan carotid ultrasound:no hemodynamically significant stenosis Echo 01/2018 tds, nl LV size and function, cannot rule out WMA, RVSP >60 mmHg EKG sinus with PVC on admission EKG 01/04 02:47 afib with 108 bpm tele: afib 110s-140s 87M h/o FLASH, lyme disease, HLD, depression p/w fatigue, new afib atrial fibrillation - new diagnosis, rate 110s-120s - will start rate control with metoprolol 25 mg BID, uptitrate as tolerated - start eliquis 5 mg BID, discussed with patient risk of bleed ([id number] 2) HLD - continue crestor PNA - on abx, manage per primary team pulm HTN - RVSP >60 mmHg, RV not well visualized - advised patient to followup with Dr. Zhao for further work up
--- NOTE | 2018-01-04 12:25 | PN ---
Progress Note, Physician Chief Complaint: Mr Freedman says he is feeling fine today. Denies cp, sob, n/v. Says he wants to go home to take care of his cat. - Current Medication List Current Medications: Active Medications Acetaminophen (Tylenol -) 650 mg PO Q4H PRN PRN Reason: FEVER Last Admin: 01/04/18 06:30 Dose: 650 mg Heparin Sodium (Porcine) (Heparin -) 5,000 unit SQ TID [facility] Last Admin: 01/04/18 06:15 Dose: 5,000 unit Levofloxacin (Levaquin 500 Mg Premixed Ivpb -) 500 mg in 100 mls @ 100 mls/hr IVPB DAILY [facility]; Protocol Last Admin: 01/04/18 10:29 Dose: 100 mls/hr Mirtazapine (Remeron -) 7.5 mg PO HS [facility] Last Admin: 01/03/18 22:15 Dose: 7.5 mg Potassium Phos/Sodium Phos (Phos-Nak Packet -) 1 packet PO TID [facility] Last Admin: 01/04/18 06:15 Dose: 1 packet Rosuvastatin Calcium (Crestor -) 5 mg PO [facility] Last Admin: 01/03/18 22:15 Dose: Not Given - Objective Vital Signs: Vital Signs Temperature 38.1 C H 01/04/18 06:00 Pulse Rate 117 H 01/04/18 06:00 Respiratory Rate 20 01/04/18 06:00 Blood Pressure 125/65 01/04/18 06:00 O2 Sat by Pulse Oximetry (%) 97 01/03/18 21:52 Constitutional: Yes: Well Nourished, No Distress, Calm Cardiovascular: Yes: Tachycardia, Pulse Irregular. No: Gallop, Murmur, Rub Respiratory: Yes: Regular, CTA Bilaterally. No: Rales, Rhonchi, Wheezes Gastrointestinal: Yes: Normal Bowel Sounds, Soft. No: Distention, Tenderness Extremities: Yes: WNL Edema: No Labs: CBC, BMP 01/04/18 05:30 01/04/18 05:30 INR, PTT INR 1.15 (0.83-1.09) H 01/03/18 06:00 Problem List - Problems (1) Pneumonia Code(s): J18.9 - PNEUMONIA, UNSPECIFIED ORGANISM (2) Fever of unknown origin (FUO) Code(s): R50.9 - FEVER, UNSPECIFIED (3) Hypophosphatemia Code(s): E83.39 - OTHER DISORDERS OF PHOSPHORUS METABOLISM (4) Depression Code(s): F32.9 - MAJOR DEPRESSIVE DISORDER, SINGLE EPISODE, UNSPECIFIED (5) HLD (hyperlipidemia) Code(s): E78.5 - HYPERLIPIDEMIA, UNSPECIFIED (6) Fatigue Code(s): R53.83 - OTHER FATIGUE (7) New onset a-fib Code(s): I48.91 - UNSPECIFIED ATRIAL FIBRILLATION Assessment/Plan (1) Pneumonia Assessment/Plan: -case d/w Dr Sharif -continue levaquin 500mg IV daily day 2 -febrile this am Code(s): J18.9 - PNEUMONIA, UNSPECIFIED ORGANISM (2) Fever of unknown origin (FUO) Assessment/Plan: -continue secondary work up as well Code(s): R50.9 - FEVER, UNSPECIFIED (3) Hypophosphatemia Assessment/Plan: -replace with oral phosphorus Code(s): E83.39 - OTHER DISORDERS OF PHOSPHORUS METABOLISM (4) Depression Assessment/Plan: -continue remeron Code(s): F32.9 - MAJOR DEPRESSIVE DISORDER, SINGLE EPISODE, UNSPECIFIED (5) HLD (hyperlipidemia) Assessment/Plan: -continue crestor Code(s): E78.5 - HYPERLIPIDEMIA, UNSPECIFIED (6) Fatigue Assessment/Plan: -chronic -pneumonia possibly exacerbating but not underlying cause -PT consult -MRI reviewed Code(s): R53.83 - OTHER FATIGUE (7) New onset afib -with RVR -case d/w Dr Potter -started on toprol xl and eliquis -monitor on telemetry
[2018-01-04] MEDS ORDERED: METOPROLOL TARTRATE 5 MG/5 ML VIAL IVPUSH PRN (12:29)
[2018-01-04] MEDS: metoPROLOL SUCCINATE 25 MG TAB.SR.24H (FP) PO SCH ×2 (12:54→21:37)
[2018-01-04] MEDS: ROSUVASTATIN CA 5 MG TABLET (FP) PO SCH (21:37)
[2018-01-04] MEDS: MIRTAZAPINE 15 MG TABLET (FP) PO SCH (21:37)
[2018-01-04] MEDS: APIXABAN 5 MG TABLET PO SCH (21:37)
--- NOTE | 2018-01-04 21:59 | PN ---
Progress Note, Physician History of Present Illness: remains febrile Offers no focal complaint C/O sweats No chills Temps lower grade WBC WNL Cultures prelim no growth CT chest ? pneumonia Echo no vegetations - Current Medication List Current Medications: Active Medications Acetaminophen (Tylenol -) 650 mg PO Q4H PRN PRN Reason: FEVER Last Admin: 01/04/18 06:30 Dose: 650 mg Apixaban (Eliquis -) 5 mg PO BID [facility] Last Admin: 01/04/18 21:37 Dose: 5 mg Levofloxacin (Levaquin 500 Mg Premixed Ivpb -) 500 mg in 100 mls @ 100 mls/hr IVPB DAILY [facility]; Protocol Last Admin: 01/04/18 10:29 Dose: 100 mls/hr Metoprolol Succinate (Toprol Xl -) 25 mg PO BID [facility] Last Admin: 01/04/18 21:37 Dose: 25 mg Metoprolol Tartrate (Lopressor Injection -) 5 mg IVPUSH Q4H PRN PRN Reason: HR >140 bpm Mirtazapine (Remeron -) 7.5 mg PO HS [facility] Last Admin: 01/04/18 21:37 Dose: 7.5 mg Potassium Phos/Sodium Phos (Phos-Nak Packet -) 1 packet PO TID [facility] Last Admin: 01/04/18 21:37 Dose: 1 packet Rosuvastatin Calcium (Crestor -) 5 mg PO HS [facility] Last Admin: 01/04/18 21:37 Dose: 5 mg - Objective Vital Signs: Vital Signs Temperature 98.8 F 01/04/18 17:00 Pulse Rate 123 H 01/04/18 17:00 Respiratory Rate 21 H 01/04/18 17:00 Blood Pressure 136/74 01/04/18 17:00 O2 Sat by Pulse Oximetry (%) 97 01/03/18 21:52 Constitutional: Yes: No Distress Eyes: Yes: Conjunctiva Clear Cardiovascular: Yes: Regular Rate and Rhythm, S1, S2 Respiratory: Yes: Other (few crepitations R base) Gastrointestinal: Yes: Normal Bowel Sounds, Soft Edema: No Labs: CBC, BMP 01/04/18 05:30 01/04/18 05:30 INR, PTT INR 1.15 (0.83-1.09) H 01/03/18 06:00 Assessment/Plan FUO ?pneumonia PCN allergy Await c/s Continue empiric levaquin
[2018-01-05] MEDS: NAPH,MB-DB/K PH,MBDB POWDER PACKET PO SCH (06:22)
[2018-01-05 07:11] LABS: BASO % 0.5 % (0-2.0); EOS % 2.4 % (0-4.5); HEMATOCRIT 39.1 % (35.4-49); HEMOGLOBIN 13.2 GM/dL (11.7-16.9); LYMPH % 24.9 % (8-40); MCH 30.6 pg (25.7-33.7); MCHC 33.7 g/dl (32.0-35.9); MEAN CELL VOLUME 90.8 fl (80-96); MEAN PLT VOLUME 8.7 fl (7.5-11.1); MONO % 16.7 % (3.8-10.2); NEUT % 55.5 % (42.8-82.8); PLATELET COUNT 160 K/MM3 (134-434); RBC 4.31 M/mm3 (4.00-5.60); RDW 13.9 % (11.9-15.9); WHITE BLOOD COUNT 6.1 K/mm3 (4.0-10.0)
[2018-01-05 07:34] LABS: ANION GAP 9 MMOL/L (8-16); BLOOD UREA NITROGEN 19 mg/dL (7-18); CALCIUM 8.2 mg/dL (8.5-10.1); CHLORIDE 107 mmol/L (98-107); CO2 24 mmol/L (21-32); GLUCOSE,RANDOM 113 mg/dL (74-106); MAGNESIUM 2.1 mg/dL (1.8-2.4); PHOSPHOROUS 3.4 mg/dL (2.5-4.9); POTASSIUM 3.7 mmol/L (3.5-5.1); SODIUM 140 mmol/L (136-145)
[2018-01-05] MEDS: metoPROLOL SUCCINATE 25 MG TAB.SR.24H (FP) PO SCH (10:58)
[2018-01-05] MEDS: APIXABAN 5 MG TABLET PO SCH ×2 (10:58→21:11)
--- NOTE | 2018-01-05 11:44 | PN ---
Progress Note, Physician Chief Complaint: Mr Freedman complains of chronic fatigue. No cp, sob, n/v. - Current Medication List Current Medications: Active Medications Acetaminophen (Tylenol -) 650 mg PO Q4H PRN PRN Reason: FEVER Last Admin: 01/04/18 06:30 Dose: 650 mg Apixaban (Eliquis -) 5 mg PO BID [facility] Last Admin: 01/05/18 10:58 Dose: 5 mg Levofloxacin (Levaquin 500 Mg Premixed Ivpb -) 500 mg in 100 mls @ 100 mls/hr IVPB DAILY [facility]; Protocol Last Admin: 01/05/18 10:59 Dose: 100 mls/hr Metoprolol Succinate (Toprol Xl -) 25 mg PO BID [facility] Last Admin: 01/05/18 10:58 Dose: 25 mg Metoprolol Tartrate (Lopressor Injection -) 5 mg IVPUSH Q4H PRN PRN Reason: HR >140 bpm Last Admin: 01/05/18 04:03 Dose: 5 mg Mirtazapine (Remeron -) 7.5 mg PO HS [facility] Last Admin: 01/04/18 21:37 Dose: 7.5 mg Potassium Phos/Sodium Phos (Phos-Nak Packet -) 1 packet PO TID [facility] Last Admin: 01/05/18 06:22 Dose: 1 packet Rosuvastatin Calcium (Crestor -) 5 mg PO HS [facility] Last Admin: 01/04/18 21:37 Dose: 5 mg - Objective Vital Signs: Vital Signs Temperature 36.9 C 01/05/18 09:00 Pulse Rate 136 H 01/05/18 09:00 Respiratory Rate 18 01/05/18 09:00 Blood Pressure 117/54 L 01/05/18 09:00 O2 Sat by Pulse Oximetry (%) 97 01/05/18 09:00 Constitutional: Yes: Well Nourished, No Distress, Calm Cardiovascular: Yes: Pulse Irregular. No: Tachycardia, Gallop, Murmur, Rub Respiratory: Yes: Regular, CTA Bilaterally. No: Rales, Rhonchi, Wheezes Gastrointestinal: Yes: Normal Bowel Sounds, Soft. No: Distention, Tenderness Extremities: Yes: WNL Edema: No Labs: CBC, BMP 01/05/18 05:30 01/05/18 05:30 INR, PTT INR 1.15 (0.83-1.09) H 01/03/18 06:00 Problem List - Problems (1) Pneumonia Code(s): J18.9 - PNEUMONIA, UNSPECIFIED ORGANISM (2) Fever of unknown origin (FUO) Code(s): R50.9 - FEVER, UNSPECIFIED (3) Hypophosphatemia Code(s): E83.39 - OTHER DISORDERS OF PHOSPHORUS METABOLISM (4) Depression Code(s): F32.9 - MAJOR DEPRESSIVE DISORDER, SINGLE EPISODE, UNSPECIFIED (5) HLD (hyperlipidemia) Code(s): E78.5 - HYPERLIPIDEMIA, UNSPECIFIED (6) Fatigue Code(s): R53.83 - OTHER FATIGUE (7) New onset a-fib Code(s): I48.91 - UNSPECIFIED ATRIAL FIBRILLATION Assessment/Plan (1) Pneumonia Assessment/Plan: -case d/w Dr Sharif -continue levaquin 500mg IV daily day 3 -afebrile for 24 hours -continue IV antibiotics, plan for transition to oral antibiotics after receiving IV antibiotics for 72 hours fever free -can discharge on oral levaquin when afebrile for 72 hours Code(s): J18.9 - PNEUMONIA, UNSPECIFIED ORGANISM (2) Fever of unknown origin (FUO) Assessment/Plan: -secondary work up negative Code(s): R50.9 - FEVER, UNSPECIFIED (3) Hypophosphatemia Assessment/Plan: -replace with oral phosphorus Code(s): E83.39 - OTHER DISORDERS OF PHOSPHORUS METABOLISM (4) Depression Assessment/Plan: -continue remeron Code(s): F32.9 - MAJOR DEPRESSIVE DISORDER, SINGLE EPISODE, UNSPECIFIED (5) HLD (hyperlipidemia) Assessment/Plan: -continue crestor Code(s): E78.5 - HYPERLIPIDEMIA, UNSPECIFIED (6) Fatigue Assessment/Plan: -chronic -? if secondary to depression Code(s): R53.83 - OTHER FATIGUE (7) New onset afib -with RVR -case d/w Dr Potter -started on toprol xl and eliquis -toprol xl increased -monitor on telemetry Dispo -possible discharge Monday if remains afebrile and HR controlled
[2018-01-05] MEDS ORDERED: metoPROLOL SUCCINATE 25 MG TAB.SR.24H (FP) PO ONE (12:00)
--- NOTE | 2018-01-05 12:56 | PN ---
Progress Note (short form) - Note Progress Note: s: still feels tired. no chest pain, palps, dizzy, edema, dyspnea Current Medications Acetaminophen (Tylenol -) 650 mg PO Q4H PRN PRN Reason: FEVER Last Admin: 01/04/18 06:30 Dose: 650 mg Apixaban (Eliquis -) 5 mg PO BID [facility] Last Admin: 01/05/18 10:58 Dose: 5 mg Levofloxacin (Levaquin 500 Mg Premixed Ivpb -) 500 mg in 100 mls @ 100 mls/hr IVPB DAILY [facility]; Protocol Last Admin: 01/05/18 10:59 Dose: 100 mls/hr Metoprolol Succinate (Toprol Xl -) 50 mg PO BID [facility] Metoprolol Tartrate (Lopressor Injection -) 5 mg IVPUSH Q4H PRN PRN Reason: HR >140 bpm Last Admin: 01/05/18 04:03 Dose: 5 mg Mirtazapine (Remeron -) 7.5 mg PO [facility] Last Admin: 01/04/18 21:37 Dose: 7.5 mg Rosuvastatin Calcium (Crestor -) 5 mg PO [facility] Last Admin: 01/04/18 21:37 Dose: 5 mg Vital Signs Period Temp Pulse Resp BP Sys/Cardenas Pulse Ox Last 24 Hr 97.9 F-99.8 F 78-158 18-21 112-136/54-87 96-97 Constitutional: Yes: Well Nourished, No Distress, Calm Eyes: Yes: Conjunctiva Clear, EOM Intact HENT: Yes: Atraumatic, Normocephalic Neck: Yes: Supple, Trachea Midline Respiratory: Yes: Regular, CTA Bilaterally Gastrointestinal: Yes: Normal Bowel Sounds, Soft Renal/: Yes: WNL Cardiovascular: Yes: Pulse Irregular JVD: No Heart Sounds: Yes: S1, S2 Musculoskeletal: Yes: WNL Extremities: Yes: WNL Edema: No Peripheral Pulses: 2+ Left Doralis Pedis, 2+ Right Dorsalis Pedis Neurological: Yes: Alert, Oriented Psychiatric: Yes: Alert, Oriented Assessment/Plan carotid ultrasound:no hemodynamically significant stenosis Echo 01/2018 tds, nl LV size and function, cannot rule out WMA, RVSP >60 mmHg EKG sinus with PVC on admission EKG 01/04 02:47 afib with 108 bpm tele: afib 110s-140s 87M h/o FLASH, lyme disease, HLD, depression p/w fatigue, new afib atrial fibrillation - new diagnosis, rate 110s-120s, occ 150s - increase metoprolol to 50 mg BID, additional 25 mg given now, will uptitrate as tolerated - continue eliquis 5 mg BID, discussed with patient risk of bleed ([id number] 2) HLD - continue crestor PNA - on abx, manage per primary team pulm HTN - RVSP >60 mmHg, RV not well visualized - advised patient to followup with Dr. Zhao for further work up
--- NOTE | 2018-01-05 13:12 | PN ---
Progress Note, Physician History of Present Illness: No focal complaint Denies cough/ sputum production Temps down on levaquin BC no growth WBC WNL CT chest ? pneumonia Echo no vegetations - Current Medication List Current Medications: Active Medications Acetaminophen (Tylenol -) 650 mg PO Q4H PRN PRN Reason: FEVER Last Admin: 01/04/18 06:30 Dose: 650 mg Apixaban (Eliquis -) 5 mg PO BID [facility] Last Admin: 01/05/18 10:58 Dose: 5 mg Levofloxacin (Levaquin 500 Mg Premixed Ivpb -) 500 mg in 100 mls @ 100 mls/hr IVPB DAILY [facility]; Protocol Last Admin: 01/05/18 10:59 Dose: 100 mls/hr Metoprolol Succinate (Toprol Xl -) 50 mg PO BID [facility] Metoprolol Tartrate (Lopressor Injection -) 5 mg IVPUSH Q4H PRN PRN Reason: HR >140 bpm Last Admin: 01/05/18 04:03 Dose: 5 mg Mirtazapine (Remeron -) 7.5 mg PO HS [facility] Last Admin: 01/04/18 21:37 Dose: 7.5 mg Rosuvastatin Calcium (Crestor -) 5 mg PO HS [facility] Last Admin: 01/04/18 21:37 Dose: 5 mg - Objective Vital Signs: Vital Signs Temperature 98.4 F 01/05/18 09:00 Pulse Rate 136 H 01/05/18 09:00 Respiratory Rate 18 01/05/18 09:00 Blood Pressure 117/54 L 01/05/18 09:00 O2 Sat by Pulse Oximetry (%) 97 01/05/18 09:00 Constitutional: Yes: No Distress Eyes: Yes: Conjunctiva Clear Cardiovascular: Yes: Regular Rate and Rhythm, S1, S2 Respiratory: Yes: Other (+ crepitations R base) Gastrointestinal: Yes: Normal Bowel Sounds, Soft, Abdomen, Obese Edema: No Labs: CBC, BMP 01/05/18 05:30 01/05/18 05:30 INR, PTT INR 1.15 (0.83-1.09) H 01/03/18 06:00 Assessment/Plan Pneumonia Chronic fatigue syndrome PCN allergy Continue empiric levaquin If stable, afebrile substitute po levaquin to complete 7-10d course
[2018-01-05] MEDS: MIRTAZAPINE 15 MG TABLET (FP) PO SCH (21:11)
[2018-01-05] MEDS: ROSUVASTATIN CA 5 MG TABLET (FP) PO SCH (21:12)
[2018-01-06 07:40] LABS: BASO % 0.4 % (0-2.0); EOS % 4.4 % (0-4.5); HEMOGLOBIN 13.1 GM/dL (11.7-16.9); LYMPH % 27.4 % (8-40); MCH 30.6 pg (25.7-33.7); MCHC 33.6 g/dl (32.0-35.9); MEAN CELL VOLUME 90.9 fl (80-96); MEAN PLT VOLUME 8.6 fl (7.5-11.1); MONO % 15.6 % (3.8-10.2); NEUT % 52.2 % (42.8-82.8); PLATELET COUNT 167 K/MM3 (134-434); RBC 4.29 M/mm3 (4.00-5.60); RDW 13.7 % (11.9-15.9); WHITE BLOOD COUNT 6.2 K/mm3 (4.0-10.0)
[2018-01-06 08:36] LABS: ANION GAP 7 MMOL/L (8-16); BLOOD UREA NITROGEN 17 mg/dL (7-18); CALCIUM 8.5 mg/dL (8.5-10.1); CHLORIDE 108 mmol/L (98-107); CO2 27 mmol/L (21-32); GLUCOSE,RANDOM 108 mg/dL (74-106); PHOSPHOROUS 3.8 mg/dL (2.5-4.9); POTASSIUM 3.9 mmol/L (3.5-5.1); SODIUM 142 mmol/L (136-145)
[2018-01-06] MEDS: APIXABAN 5 MG TABLET PO SCH ×2 (09:54→21:58)
--- NOTE | 2018-01-06 10:08 | PN ---
Progress Note (short form) - Note Progress Note: s: still feels tired same as last few weeks. no chest pain, palps, dizzy, edema , dyspnea Current Medications Acetaminophen (Tylenol -) 650 mg PO Q4H PRN PRN Reason: FEVER Last Admin: 01/04/18 06:30 Dose: 650 mg Apixaban (Eliquis -) 5 mg PO BID [facility]S AT [facility] Last Admin: 01/06/18 09:54 Dose: 5 mg Levofloxacin (Levaquin 500 Mg Premixed Ivpb -) 500 mg in 100 mls @ 100 mls/hr IVPB DAILY [facility]S AT [facility]; Protocol Last Admin: 01/06/18 09:54 Dose: 100 mls/hr Metoprolol Succinate (Toprol Xl -) 50 mg PO BID [facility] B[facility]S AT [facility] Last Admin: 01/06/18 09:54 Dose: 50 mg Metoprolol Tartrate (Lopressor Injection -) 5 mg IVPUSH Q4H PRN PRN Reason: HR >140 bpm Last Admin: 01/05/18 04:03 Dose: 5 mg Mirtazapine (Remeron -) 7.5 mg PO HS [facility]S [facility] Last Admin: 01/05/18 21:11 Dose: 7.5 mg Rosuvastatin Calcium (Crestor -) 5 mg PO [facility] Last Admin: 01/05/18 21:12 Dose: 5 mg Vital Signs Period Temp Pulse Resp BP Sys/Cardenas Pulse Ox Last 24 Hr 98.0 F-99.5 F 55-92 18-18 104-122/54-67 98 Constitutional: Yes: Well Nourished, No Distress, Calm Eyes: Yes: Conjunctiva Clear, EOM Intact HENT: Yes: Atraumatic, Normocephalic Neck: Yes: Supple, Trachea Midline Respiratory: Yes: Regular, CTA Bilaterally Gastrointestinal: Yes: Normal Bowel Sounds, Soft Renal/: Yes: WNL Cardiovascular: Yes: Pulse Irregular JVD: No Heart Sounds: Yes: S1, S2 Musculoskeletal: Yes: WNL Extremities: Yes: WNL Edema: No Peripheral Pulses: 2+ Left Doralis Pedis, 2+ Right Dorsalis Pedis Neurological: Yes: Alert, Oriented Psychiatric: Yes: Alert, Oriented Assessment/Plan carotid ultrasound:no hemodynamically significant stenosis Echo 01/2018 tds, nl LV size and function, cannot rule out WMA, RVSP >60 mmHg EKG sinus with PVC on admission EKG 01/04 02:47 afib with 108 bpm tele: afib 90s-100s, episodes to 140s 87M h/o FLASH, lyme disease, HLD, depression p/w fatigue, new afib atrial fibrillation - new diagnosis, rate 110s-120s, occ 150s - increase metoprolol to 75 mg BID, additional dose now, has occasional high rates - continue eliquis 5 mg BID, discussed with patient risk of bleed ([id number] 2) HLD - continue crestor PNA - on abx, manage per primary team pulm HTN - RVSP >60 mmHg, RV not well visualized - advised patient to followup with Dr. Zhao for further work up
--- NOTE | 2018-01-06 10:59 | PN ---
Progress Note (short form) - Note Progress Note: continues with fatigue and anorexia nonproductive cough Vital Signs Period Temp Pulse Resp BP Sys/Cardenas Pulse Ox Last 24 Hr 98.0 F-99.5 F 55-92 18-18 104-122/54-67 98 cor-rrr lungs decreased bs at bases abd soft,nt ext no edema CBC, BMP 01/06/18 06:20 01/06/18 06:20 Microbiology 01/02/18 13:50 Blood - Peripheral Venous Blood Culture - Preliminary NO GROWTH OBTAINED AFTER 72 HOURS, INCUBATION TO CONTINUE FOR 2 DAYS. 01/02/18 13:50 Blood - Peripheral Venous Blood Culture - Preliminary NO GROWTH OBTAINED AFTER 72 HOURS, INCUBATION TO CONTINUE FOR 2 DAYS. 01/02/18 15:00 Urine - Urine Clean Catch Urine Culture - Final NO GROWTH OBTAINED 01/02/18 15:36 Nasopharyngeal Swab Influenza Types A,B Antigen - Final 01/02/18 15:36 Nasopharyngeal Swab - Final a/p RLL pneumonia- fevers resolved on levaquin send legionella urinary antigen new afib rate control per cardiology a/c per cardiology penicillin allergy-throat swelling per patient- will add to allergy comment
[2018-01-06] MEDS ORDERED: metoPROLOL SUCCINATE 25 MG TAB.SR.24H (FP) PO ONE (12:02)
--- NOTE | 2018-01-06 12:45 | PN ---
Progress Note, Physician History of Present Illness: patient still with lethargy, but notes coughing improving. - Current Medication List Current Medications: Active Medications Acetaminophen (Tylenol -) 650 mg PO Q4H PRN PRN Reason: FEVER Last Admin: 01/04/18 06:30 Dose: 650 mg Apixaban (Eliquis -) 5 mg PO BID [facility] Last Admin: 01/06/18 09:54 Dose: 5 mg Levofloxacin (Levaquin 500 Mg Premixed Ivpb -) 500 mg in 100 mls @ 100 mls/hr IVPB DAILY [facility]; Protocol Last Admin: 01/06/18 09:54 Dose: 100 mls/hr Metoprolol Succinate (Toprol Xl -) 75 mg PO BID [facility] Metoprolol Tartrate (Lopressor Injection -) 5 mg IVPUSH Q4H PRN PRN Reason: HR >140 bpm Last Admin: 01/05/18 04:03 Dose: 5 mg Mirtazapine (Remeron -) 7.5 mg PO HS [facility] Last Admin: 01/05/18 21:11 Dose: 7.5 mg Rosuvastatin Calcium (Crestor -) 5 mg PO [facility] Last Admin: 01/05/18 21:12 Dose: 5 mg - Objective Vital Signs: Vital Signs Temperature 99 F 01/06/18 01:00 Pulse Rate 78 01/06/18 05:00 Respiratory Rate 18 01/06/18 05:00 Blood Pressure 109/54 L 01/06/18 05:00 O2 Sat by Pulse Oximetry (%) 98 01/05/18 21:00 Constitutional: Yes: No Distress, Calm Cardiovascular: Yes: Regular Rate and Rhythm, S1, S2. No: Murmur Respiratory: Yes: Regular, Diminished (bases) Gastrointestinal: Yes: Normal Bowel Sounds, Soft. No: Distention, Tenderness Edema: No Labs: CBC, BMP 01/06/18 06:20 01/06/18 06:20 INR, PTT INR 1.15 (0.83-1.09) H 01/03/18 06:00 Assessment/Plan Current Active Problems Depression (Acute) Fatigue (Acute) Fever of unknown origin (FUO) (Acute) HLD (hyperlipidemia) (Acute) Hypophosphatemia (Acute) New onset a-fib (Acute) Pneumonia (Acute) -cont abx, follow heart rate, tolerating AC
[2018-01-06] MEDS ORDERED: FLU VACCINE QUAD 60 MCG/0.5 ML (MDV 18-19) IM ONE (17:30)
[2018-01-06] MEDS ORDERED: PNEUMOC 13-VAL CONJ-DIP CRM/PF 0.5 ML DISP.SYRIN IM ONE (17:32)
[2018-01-06] MEDS ORDERED: INSULIN (NOVOLOG) ASPART 100 UNITS/ML 10ML VIAL ONE (18:53)
[2018-01-06] MEDS ORDERED: PT OWN MED DRAWER 7, Y5N ONE (21:57)
[2018-01-06] MEDS: MIRTAZAPINE 15 MG TABLET (FP) PO SCH (21:58)
[2018-01-06] MEDS: metoPROLOL SUCCINATE 25 MG TAB.SR.24H (FP) PO SCH (21:58)
[2018-01-06] MEDS: ROSUVASTATIN CA 5 MG TABLET (FP) PO SCH (21:58)
[2018-01-07 07:48] LABS: BASO % 0.4 % (0-2.0); EOS % 5.2 % (0-4.5); HEMATOCRIT 39.9 % (35.4-49); HEMOGLOBIN 13.4 GM/dL (11.7-16.9); LYMPH % 25.9 % (8-40); MCH 30.6 pg (25.7-33.7); MCHC 33.5 g/dl (32.0-35.9); MEAN CELL VOLUME 91.2 fl (80-96); MONO % 12.3 % (3.8-10.2); NEUT % 56.2 % (42.8-82.8); PLATELET COUNT 187 K/MM3 (134-434); RBC 4.38 M/mm3 (4.00-5.60); RDW 13.7 % (11.9-15.9); WHITE BLOOD COUNT 7.5 K/mm3 (4.0-10.0)
[2018-01-07 08:12] LABS: ALBUMIN 2.8 g/dl (3.4-5.0); ALK PHOS 47 U/L (45-117); ANION GAP 2 MMOL/L (8-16); BILIRUBIN,TOTAL 0.7 mg/dL (0.2-1); BLOOD UREA NITROGEN 15 mg/dL (7-18); CALCIUM 8.8 mg/dL (8.5-10.1); CHLORIDE 108 mmol/L (98-107); CO2 29 mmol/L (21-32); CREATININE 0.9 mg/dL (0.55-1.3); GLUCOSE,RANDOM 107 mg/dL (74-106); POTASSIUM 4.4 mmol/L (3.5-5.1); SGOT/AST 30 U/L (15-37); SGPT/ALT 30 U/L (13-61); SODIUM 139 mmol/L (136-145); TOT PROT 6.1 g/dl (6.4-8.2)
--- NOTE | 2018-01-07 10:03 | PN ---
Progress Note (short form) - Note Progress Note: s: feels fatigued, stable. no chest pain, palps, dizzy, edema, dyspnea Current Medications Acetaminophen (Tylenol -) 650 mg PO Q4H PRN PRN Reason: FEVER Last Admin: 01/04/18 06:30 Dose: 650 mg Apixaban (Eliquis -) 5 mg PO BID [facility] Last Admin: 01/06/18 21:58 Dose: 5 mg Levofloxacin (Levaquin 500 Mg Premixed Ivpb -) 500 mg in 100 mls @ 100 mls/hr IVPB DAILY [facility]; Protocol Last Admin: 01/06/18 09:54 Dose: 100 mls/hr Metoprolol Succinate (Toprol Xl -) 75 mg PO BID [facility] Last Admin: 01/06/18 21:58 Dose: 75 mg Metoprolol Tartrate (Lopressor Injection -) 5 mg IVPUSH Q4H PRN PRN Reason: HR >140 bpm Last Admin: 01/05/18 04:03 Dose: 5 mg Mirtazapine (Remeron -) 7.5 mg PO HS [facility] Last Admin: 01/06/18 21:58 Dose: 7.5 mg Rosuvastatin Calcium (Crestor -) 5 mg PO HS [facility] Last Admin: 01/06/18 21:58 Dose: 5 mg Vital Signs Period Temp Pulse Resp BP Sys/Carednas Pulse Ox Last 24 Hr 97.5 F-98.6 F 58-102 18-20 106-134/58-93 96 Constitutional: Yes: Well Nourished, No Distress, Calm Eyes: Yes: Conjunctiva Clear, EOM Intact HENT: Yes: Atraumatic, Normocephalic Neck: Yes: Supple, Trachea Midline Respiratory: Yes: Regular, CTA Bilaterally Gastrointestinal: Yes: Normal Bowel Sounds, Soft Renal/: Yes: WNL Cardiovascular: Yes: Pulse Irregular JVD: No Heart Sounds: Yes: S1, S2 Musculoskeletal: Yes: WNL Extremities: Yes: WNL Edema: No Peripheral Pulses: 2+ Left Doralis Pedis, 2+ Right Dorsalis Pedis Neurological: Yes: Alert, Oriented Psychiatric: Yes: Alert, Oriented Assessment/Plan carotid ultrasound:no hemodynamically significant stenosis Echo 01/2018 tds, nl LV size and function, cannot rule out WMA, RVSP >60 mmHg EKG sinus with PVC on admission EKG 01/04 02:47 afib with 108 bpm tele: afib 90s-100s, episodes to 140s 87M h/o FLASH, lyme disease, HLD, depression p/w fatigue, new afib atrial fibrillation - new diagnosis, rate 110s-120s, occ 150s -on metoprolol 75 mg BID, rate control improved - continue eliquis 5 mg BID, discussed with patient risk of bleed ([id number] 2) HLD - continue crestor PNA - on abx, manage per primary team pulm HTN - RVSP >60 mmHg, RV not well visualized - advised patient to followup with Dr. Zhao for further work up stable from cardiac perspective
[2018-01-07] MEDS: metoPROLOL SUCCINATE 25 MG TAB.SR.24H (FP) PO SCH ×2 (10:05→22:52)
[2018-01-07] MEDS: APIXABAN 5 MG TABLET PO SCH ×2 (10:05→22:52)
--- NOTE | 2018-01-07 11:08 | DS ---
Physical Examination Vital Signs: Vital Signs Temperature 98.4 F 01/07/18 10:00 Pulse Rate 64 01/07/18 10:00 Respiratory Rate 20 01/07/18 10:00 Blood Pressure 123/70 01/07/18 10:00 O2 Sat by Pulse Oximetry (%) 96 01/07/18 09:00 Constitutional: Yes: No Distress, Calm HENT: Yes: Atraumatic, Normocephalic Neck: Yes: Supple, Trachea Midline Cardiovascular: Yes: Pulse Irregular, S1, S2 Respiratory: Yes: Regular, Diminished (at bases) Gastrointestinal: Yes: Normal Bowel Sounds, Soft. No: Distention, Tenderness Edema: No Neurological: Yes: Alert, Oriented Labs: CBC, BMP 01/07/18 06:00 01/07/18 06:00 Discharge Summary Reason For Visit: FATIGUE,FEVER WITH CHILLS Current Active Problems Depression (Acute) Fatigue (Acute) Fever of unknown origin (FUO) (Acute) HLD (hyperlipidemia) (Acute) Hypophosphatemia (Acute) New onset a-fib (Acute) Pneumonia (Acute) Hospital Course: 87 yo male presented with fatigue, fever to hospital. Seen by ID and found to have RLL pneumonia. started on IV abx. Noted to also have new onset afib as well, with HR elevating into low 100's. started on Eliquis an toprol dose was increased. HR has been better, not coughing now. Sodium levels also low on admission (Legionella antigen still pending). Still remains with fatigue/ malaise, but with no further fevers and HR controlled, will be discharged on levaquin for 7 more days for PNA and eliquis and toprol for Afib. To follow up with PMD for further eval of fatigue/ exhaustion - Instructions Referrals: Tia Richards MD [Primary Care Provider] - Disposition: HOME - Home Medications Comprehensive Discharge Medication List: Ambulatory Orders Apixaban [Eliquis -] 5 mg PO BID #60 tablet 01/07/18 Metoprolol Succinate [Toprol XL -] 50 mg PO UTDICT #90 tab.sr.24h 01/07/18 Mirtazapine [Remeron -] 7.5 mg PO HS #30 tablet 01/07/18 Rosuvastatin [Crestor -] 5 mg PO HS #30 tablet 01/07/18 levoFLOXacin [Levaquin -] 500 mg PO DAILY #7 tablet 01/07/18
--- NOTE | 2018-01-07 21:39 | PN ---
Progress Note (short form) - Note Progress Note: Discharge cancelled when patient became tachycardic on ambulation. Will stay in hospital overnight and get PT eval in morning -may need adjustment in medicaiton if remains tachycardic with exertion.
[2018-01-07] MEDS: MIRTAZAPINE 15 MG TABLET (FP) PO SCH (22:52)
[2018-01-07] MEDS: ROSUVASTATIN CA 5 MG TABLET (FP) PO SCH (22:52)
[2018-01-08] MEDS: metoPROLOL SUCCINATE 25 MG TAB.SR.24H (FP) PO SCH ×2 (09:16→21:55)
[2018-01-08] MEDS: APIXABAN 5 MG TABLET PO SCH ×2 (09:16→21:55)
--- NOTE | 2018-01-08 09:51 | PN ---
Progress Note, Physician Chief Complaint: fatigue History of Present Illness: c/o severe fatigue and sleepiness every day for several months. says he saw mult MDs and no etiology found. very marked change from his [facility] baseline--sx's continue here. no cp or sob. no palpitations no cigs - Current Medication List Current Medications: Active Medications Acetaminophen (Tylenol -) 650 mg PO Q4H PRN PRN Reason: FEVER Last Admin: 01/04/18 06:30 Dose: 650 mg Apixaban (Eliquis -) 5 mg PO BID [facility] Last Admin: 01/08/18 09:16 Dose: 5 mg Levofloxacin (Levaquin 500 Mg Premixed Ivpb -) 500 mg in 100 mls @ 100 mls/hr IVPB DAILY [facility]; Protocol Last Admin: 01/08/18 09:16 Dose: 100 mls/hr Metoprolol Succinate (Toprol Xl -) 75 mg PO BID [facility] Last Admin: 01/08/18 09:16 Dose: 75 mg Metoprolol Tartrate (Lopressor Injection -) 5 mg IVPUSH Q4H PRN PRN Reason: HR >140 bpm Last Admin: 01/05/18 04:03 Dose: 5 mg Mirtazapine (Remeron -) 7.5 mg PO [facility] Last Admin: 01/07/18 22:52 Dose: 7.5 mg Rosuvastatin Calcium (Crestor -) 5 mg PO [facility] Last Admin: 01/07/18 22:52 Dose: 5 mg - Objective Vital Signs: Vital Signs Temperature 9725 F H 01/08/18 08:47 Pulse Rate 73 01/08/18 08:47 Respiratory Rate 18 01/08/18 08:47 Blood Pressure 109/59 L 01/08/18 08:47 O2 Sat by Pulse Oximetry (%) 95 01/08/18 08:47 Constitutional: Yes: No Distress, Calm Eyes: No: Sclera Icterus HENT: No: Nasal Congestion Cardiovascular: Yes: Pulse Irregular, S1, S2, Other (PMI non diplaced). No: JVD , Gallop, Murmur Respiratory: Yes: CTA Bilaterally. No: Accessory Muscle Use, Rales, Wheezes Gastrointestinal: Yes: Normal Bowel Sounds, Soft. No: Tenderness Musculoskeletal: Yes: Other (No kyphosis) Extremities: No: Cold Edema: No Integumentary: No: Jaundice Neurological: Yes: Alert, Oriented (x3) Psychiatric: No: Agitated Labs: CBC, BMP 01/07/18 06:00 01/07/18 06:00 INR, PTT INR 1.15 (0.83-1.09) H 01/03/18 06:00 Assessment/Plan carotid dopplers:no hemodynamically significant stenosis Echo 01/2018 tds, nl LV size and function, cannot rule out WMA, RVSP >60 mmHg EKG sinus with PVC on admission EKG 01/04 02:47 afib with 108 bpm tele: afib, resting HR usually 90s-100s. briefly up to 120s at times. 87M h/o FLASH, lyme disease, HLD, depression p/w fatigue, new afib fatigue, somnolence: - chronic, unremitting sx for few months - ? depression (pt suspects this, has been seeing dr higginbotham) - ? lyme has been w/u'd--he will continue to f/u with dr higginbotham - not AF sx, as pt was in sinus on presentation to ER here - would r/o atypical sx of myocardial ischemia in elderly--pharm [facility] will be arranged as outpt via dr patel (case d/w'd him). pt does not want to stay another day for this, and he has no high risk findings, with stable sx's for months--outpt w/u ok atrial fibrillation - new diagnosis, rate 110s-120s, occ 150s - on metoprolol 75 mg BID, rate control improved - 01/08: per RN, HR jumped to 130s when ambulated yesterday. add diltiazem 30 QID , observe HR with ambulation. (may need to decrease metoprolol dose if BP trends down) - continue eliquis 5 mg BID, discussed with patient risk of bleed ([id number] 2) pulm HTN - RVSP >60 mmHg, RV not well visualized - advised patient to followup with Dr. Patel for further work up HLD - continue crestor PNA - on abx, manage per primary team
[2018-01-08] MEDS ORDERED: dilTIAZem HCL 30 MG TABLET (FP) PO ONE (10:55)
--- NOTE | 2018-01-08 12:12 | PN ---
Progress Note, Physician Chief Complaint: Mr Freedman complains mainly of fatigue that is chronic. No cp, sob, n/v. - Current Medication List Current Medications: Active Medications Acetaminophen (Tylenol -) 650 mg PO Q4H PRN PRN Reason: FEVER Last Admin: 01/04/18 06:30 Dose: 650 mg Apixaban (Eliquis -) 5 mg PO BID [facility] Last Admin: 01/08/18 09:16 Dose: 5 mg Diltiazem HCl (Cardizem -) 30 mg PO Q6HPO [facility] Levofloxacin (Levaquin -) 500 mg PO DAILY [facility] Stop: 01/12/18 10:01 Metoprolol Succinate (Toprol Xl -) 75 mg PO BID [facility] Last Admin: 01/08/18 09:16 Dose: 75 mg Metoprolol Tartrate (Lopressor Injection -) 5 mg IVPUSH Q4H PRN PRN Reason: HR >140 bpm Last Admin: 01/05/18 04:03 Dose: 5 mg Mirtazapine (Remeron -) 7.5 mg PO HS [facility] Last Admin: 01/07/18 22:52 Dose: 7.5 mg Rosuvastatin Calcium (Crestor -) 5 mg PO HS [facility] Last Admin: 01/07/18 22:52 Dose: 5 mg - Objective Vital Signs: Vital Signs Temperature 5385 C H 01/08/18 08:47 Pulse Rate 73 01/08/18 08:47 Respiratory Rate 18 01/08/18 08:47 Blood Pressure 109/59 L 01/08/18 08:47 O2 Sat by Pulse Oximetry (%) 95 01/08/18 08:47 Constitutional: Yes: Well Nourished, No Distress, Calm Cardiovascular: Yes: Pulse Irregular. No: Tachycardia, Gallop, Murmur, Rub Respiratory: Yes: Regular, CTA Bilaterally. No: Rales, Rhonchi, Wheezes Gastrointestinal: Yes: Normal Bowel Sounds, Soft. No: Distention, Tenderness Extremities: Yes: WNL Edema: No Labs: CBC, BMP 01/07/18 06:00 01/07/18 06:00 INR, PTT INR 1.15 (0.83-1.09) H 01/03/18 06:00 Problem List - Problems (1) Pneumonia Code(s): J18.9 - PNEUMONIA, UNSPECIFIED ORGANISM (2) Fever of unknown origin (FUO) Code(s): R50.9 - FEVER, UNSPECIFIED (3) Hypophosphatemia Code(s): E83.39 - OTHER DISORDERS OF PHOSPHORUS METABOLISM (4) Depression Code(s): F32.9 - MAJOR DEPRESSIVE DISORDER, SINGLE EPISODE, UNSPECIFIED (5) HLD (hyperlipidemia) Code(s): E78.5 - HYPERLIPIDEMIA, UNSPECIFIED (6) Fatigue Code(s): R53.83 - OTHER FATIGUE (7) New onset a-fib Code(s): I48.91 - UNSPECIFIED ATRIAL FIBRILLATION Assessment/Plan (1) Pneumonia Assessment/Plan: -levaquin 500mg IV daily day 6 -can change to oral for 4 more doses -afebrile for 72 hours Code(s): J18.9 - PNEUMONIA, UNSPECIFIED ORGANISM (2) Fever of unknown origin (FUO) Assessment/Plan: -secondary to pneumonia Code(s): R50.9 - FEVER, UNSPECIFIED (3) Hypophosphatemia Assessment/Plan: -replaced Code(s): E83.39 - OTHER DISORDERS OF PHOSPHORUS METABOLISM (4) Depression Assessment/Plan: -continue remeron -further outpatient evaluation Code(s): F32.9 - MAJOR DEPRESSIVE DISORDER, SINGLE EPISODE, UNSPECIFIED (5) HLD (hyperlipidemia) Assessment/Plan: -continue crestor Code(s): E78.5 - HYPERLIPIDEMIA, UNSPECIFIED (6) Fatigue Assessment/Plan: -chronic -patient says has sleep apnea but does not wear cpap -suspect multifactorial but sleep apnea is most likely large contributor -pulmonary consult Code(s): R53.83 - OTHER FATIGUE (7) New onset afib -elevation with ambulation -started on diltiazem 30mg q6h -continue current regimen -monitor on telemetry Dispo -possible discharge tomorrow if tolerates diltiazem and heart rate is controlled
[2018-01-08] MEDS ORDERED: PT OWN MED DRAWER 7, Y5N ONE (17:13)
[2018-01-08] MEDS: dilTIAZem HCL 30 MG TABLET (FP) PO SCH (17:19)
[2018-01-08] MEDS: BENZOCAINE/MENTH/CETYLPYRD CL 1 EACH LOZENGE MM PRN (21:05)
[2018-01-08] MEDS: MIRTAZAPINE 15 MG TABLET (FP) PO SCH (21:55)
[2018-01-08] MEDS: ROSUVASTATIN CA 5 MG TABLET (FP) PO SCH (21:55)
[2018-01-09] MEDS: dilTIAZem HCL 30 MG TABLET (FP) PO SCH ×2 (00:14→06:26)
[2018-01-09] MEDS: BENZOCAINE/MENTH/CETYLPYRD CL 1 EACH LOZENGE MM PRN (04:51)
[2018-01-09 06:43] VITALS: PULSE 69
[2018-01-09 07:31] LABS: BASO % 0.7 % (0-2.0); EOS % 7.5 % (0-4.5); HEMATOCRIT 38.4 % (35.4-49); LYMPH % 20.8 % (8-40); MCHC 33.8 g/dl (32.0-35.9); MEAN CELL VOLUME 91.7 fl (80-96); MEAN PLT VOLUME 8.9 fl (7.5-11.1); PLATELET COUNT 232 K/MM3 (134-434); RBC 4.19 M/mm3 (4.00-5.60); RDW 13.7 % (11.9-15.9); WHITE BLOOD COUNT 8.2 K/mm3 (4.0-10.0)
[2018-01-09 07:58] LABS: ANION GAP 7 MMOL/L (8-16); BLOOD UREA NITROGEN 18 mg/dL (7-18); CALCIUM 9.2 mg/dL (8.5-10.1); CHLORIDE 107 mmol/L (98-107); CO2 29 mmol/L (21-32); CREATININE 0.9 mg/dL (0.55-1.3); GLUCOSE,RANDOM 99 mg/dL (74-106); MAGNESIUM 2.2 mg/dL (1.8-2.4); PHOSPHOROUS 3.3 mg/dL (2.5-4.9); POTASSIUM 4.3 mmol/L (3.5-5.1); SODIUM 143 mmol/L (136-145)
--- NOTE | 2018-01-09 09:33 | PN ---
Progress Note (short form) - Note Progress Note: Chief Complaint: fatigue History of Present Illness: stable fatigue. no chest pain, palps, dizzy, lightheadedness - Current Medication List Current Medications: Current Medications Acetaminophen (Tylenol -) 650 mg PO Q4H PRN PRN Reason: FEVER Last Admin: 01/04/18 06:30 Dose: 650 mg Apixaban (Eliquis -) 5 mg PO BID [facility] Last Admin: 01/09/18 09:54 Dose: 5 mg Benzocaine/Menthol (Cepacol Lozenge -) 1 each MM PRN PRN PRN Reason: SORE THROAT Last Admin: 01/09/18 04:51 Dose: 1 each Diltiazem HCl (Cardizem Cd -) 120 mg PO DAILY [facility] Levofloxacin (Levaquin -) 500 mg PO DAILY@0600 [facility] Stop: 01/12/18 06:01 Last Admin: 01/09/18 06:26 Dose: 500 mg Metoprolol Succinate (Toprol Xl -) 75 mg PO BID [facility] Last Admin: 01/09/18 09:54 Dose: 75 mg Metoprolol Tartrate (Lopressor Injection -) 5 mg IVPUSH Q4H PRN PRN Reason: HR >140 bpm Last Admin: 01/05/18 04:03 Dose: 5 mg Mirtazapine (Remeron -) 7.5 mg PO [facility] Last Admin: 01/08/18 21:55 Dose: 7.5 mg Rosuvastatin Calcium (Crestor -) 5 mg PO [facility] Last Admin: 01/08/18 21:55 Dose: 5 mg - Objective Vital Signs: Vital Signs Period Temp Pulse Resp BP Sys/Cardenas Pulse Ox Last 24 Hr 97.3 F-98.7 F 48-76 18-20 93-123/50-68 95 Constitutional: Yes: No Distress, Calm Eyes: No: Sclera Icterus HENT: No: Nasal Congestion Cardiovascular: Yes: Pulse Irregular, S1, S2, Other (PMI non diplaced). No: JVD , Gallop, Murmur Respiratory: Yes: CTA Bilaterally. No: Accessory Muscle Use, Rales, Wheezes Gastrointestinal: Yes: Normal Bowel Sounds, Soft. No: Tenderness Musculoskeletal: Yes: Other (No kyphosis) Extremities: No: Cold Edema: No Integumentary: No: Jaundice Neurological: Yes: Alert, Oriented (x3) Psychiatric: No: Agitated Assessment/Plan carotid dopplers:no hemodynamically significant stenosis Echo 01/2018 tds, nl LV size and function, cannot rule out WMA, RVSP >60 mmHg EKG sinus with PVC on admission EKG 01/04 02:47 afib with 108 bpm tele: afib, resting HR usually 90s-100s. briefly up to 120s at times. 87M h/o FLASH, lyme disease, HLD, depression p/w fatigue, new afib fatigue, somnolence: - chronic, unremitting sx for few months - per Dr. Valverde lyme workup negative, d/w Dr. Richards fatigue chronic and likely new baseline. also has severe FLASH not complying with treatment - not AF sx, as pt was in sinus on presentation to ER here - had stress test with Dr. Zhao since symptoms developed which was unremarkable atrial fibrillation - new diagnosis, rate 110s-120s, occ 150s - on metoprolol 75 mg BID, rate control improved - 01/08: per RN, HR jumped to 130s when ambulated add diltiazem 30 QID, observe HR with ambulation. (may need to decrease metoprolol dose if BP trends down) - 01/09 rate controlled with ambulation, transition to cardizem CD 120 mg daily - continue eliquis 5 mg BID, discussed with patient risk of bleed ([id number] 2) - stable for discharge from cardiac perspective pulm HTN - RVSP >60 mmHg, RV not well visualized - advised patient to followup with Dr. Zhao for further work up HLD - continue crestor PNA - on abx, manage per primary team
[2018-01-09] MEDS: metoPROLOL SUCCINATE 25 MG TAB.SR.24H (FP) PO SCH (09:54)
[2018-01-09] MEDS: APIXABAN 5 MG TABLET PO SCH (09:54)
--- NOTE | 2018-01-09 12:26 | DS ---
Physical Examination Vital Signs: Vital Signs Temperature 36.9 C 01/09/18 05:00 Pulse Rate 69 01/09/18 05:00 Respiratory Rate 18 01/09/18 05:00 Blood Pressure 104/64 01/09/18 05:00 O2 Sat by Pulse Oximetry (%) 95 01/08/18 21:00 Constitutional: Yes: Well Nourished, No Distress, Calm Cardiovascular: Yes: Pulse Irregular. No: Tachycardia, Gallop, Murmur, Rub Respiratory: Yes: Regular, CTA Bilaterally. No: Rales, Rhonchi, Wheezes Gastrointestinal: Yes: Normal Bowel Sounds, Soft. No: Distention, Tenderness Extremities: Yes: WNL Edema: No Labs: CBC, BMP 01/09/18 05:30 01/09/18 05:30 Discharge Summary Reason For Visit: FATIGUE,FEVER WITH CHILLS Current Active Problems Depression (Acute) Fatigue (Acute) Fever of unknown origin (FUO) (Acute) HLD (hyperlipidemia) (Acute) Hypophosphatemia (Acute) New onset a-fib (Acute) Pneumonia (Acute) Hospital Course: (1) Pneumonia Code(s): J18.9 - PNEUMONIA, UNSPECIFIED ORGANISM (2) Fever of unknown origin (FUO) Code(s): R50.9 - FEVER, UNSPECIFIED (3) Hypophosphatemia Code(s): E83.39 - OTHER DISORDERS OF PHOSPHORUS METABOLISM (4) Depression Code(s): F32.9 - MAJOR DEPRESSIVE DISORDER, SINGLE EPISODE, UNSPECIFIED (5) HLD (hyperlipidemia) Code(s): E78.5 - HYPERLIPIDEMIA, UNSPECIFIED (6) Fatigue Code(s): R53.83 - OTHER FATIGUE (7) New onset a-fib Code(s): I48.91 - UNSPECIFIED ATRIAL FIBRILLATION Please refer to discharge summary written on 01/07 for initial hospitalization summary. After discharge was placed patient was ambulating and his HR elevated to the 130s. Because of this his discharge was discontinued. Cardiology was on the case and evaluated, he was started on diltiazem 30mg q6h. He tolerated this regimen and his heart rate is controlled. He is safe for transition to cardizem 240mg daily per cardiology. He is currently feeling well and is encourage to wear his cpap at night. He is safe for discharge home. 31 minutes spent in preparation of this discharge Condition: Stable - Instructions Referrals: Angelina Potter MD [Staff Physician] - Tia Richards MD [Primary Care Provider] - 1 Week Disposition: HOME - Home Medications Comprehensive Discharge Medication List: Ambulatory Orders Apixaban [Eliquis -] 5 mg PO BID #60 tablet 01/07/18 Metoprolol Succinate [Toprol XL -] 50 mg PO UTDICT #90 tab.sr.24h 01/07/18 Mirtazapine [Remeron -] 7.5 mg PO HS #30 tablet 01/07/18 Rosuvastatin [Crestor -] 5 mg PO HS #30 tablet 01/07/18 levoFLOXacin [Levaquin -] 500 mg PO DAILY #7 tablet 01/07/18 Diltiazem Cd [Cardizem Cd -] 120 mg PO DAILY #30 cap.cd.24h 01/09/18
[2018-01-09 14:21] VITALS: BP 112/64; TEMP 98.2
== END 2018-01-09 14:03 | disposition home or self-care (01) | DRG 193 ==
LOC: JER 13:32 → JERBED 17:52 → OBSVTOIN 01-03 16:10 → J4W 01-03 20:51
PROVIDERS: ADMIT Internal Medicine; ATTEND Internal Medicine
DX: J18.9 Pneumonia, unspecified organism (principal); G93.41 Metabolic encephalopathy; A69.20 Lyme disease, unspecified; E87.1 Hypo-osmolality and hyponatremia; E78.5 Hyperlipidemia, unspecified; F32.9 Major depressive disorder, single episode, unspecified; G47.30 Sleep apnea, unspecified; K21.9 Gastro-esophageal reflux disease without esophagitis; R50.9 Fever, unspecified; E83.39 Other disorders of phosphorus metabolism; R53.83 Other fatigue; G47.33 Obstructive sleep apnea (adult) (pediatric); I48.91 Unspecified atrial fibrillation; R40.0 Somnolence; I27.20 Pulmonary hypertension, unspecified; R00.0 Tachycardia, unspecified; Z88.0 Allergy status to penicillin; E66.9 Obesity, unspecified; Z68.27 Body mass index [BMI] 27.0-27.9, adult
CPT/HCPCS: 36415; 70450-TC; 70551-TC; 71045-TC-FY; 71260-TC; 74177-TC; 80048; 80053; 80061; 80076; 80307; 81003; 81015; 82803; 82962; 83036; 83605; 83721; 83735; 84100; 84439; 84443; 84484; 85025; 85610; 85651; 85730; 86140; 86618; 87040; 87070; 87086; 87205; 87389; 87804; 87899; 90688; 93005; 93010; 93306-TC; 93880-TC; 97116-GP; 97161-GP; 99285-25; G0008; G0378; J0131; J1644; J7030

== ENCOUNTER 2018-01-14 19:45 | Observation (INO) | payer OTHER, BC ==
[2018-01-14] MEDS: ALBUTEROL SO4 2.5/IPRATROPIUM 0.5 INH SOL 3 ML VIAL.NEB. NEB SCH ×4 (21:15→22:00)
[2018-01-14] MEDS ORDERED: ALBUTEROL SO4 2.5/IPRATROPIUM 0.5 INH SOL 3 ML VIAL.NEB. NEB ONE (21:19)
[2018-01-14] MEDS ORDERED: guaiFENesin/CODEINE 10 ML UNIT-DOSE CUPS PO ONE (21:19)
[2018-01-14 21:54] LABS: BASO % 0.4 % (0-2.0); EOS % 4.1 % (0-4.5); HEMATOCRIT 38.7 % (35.4-49); HEMOGLOBIN 13.3 GM/dL (11.7-16.9); LYMPH % 22.6 % (8-40); MCH 32.8 pg (25.7-33.7); MCHC 34.4 g/dl (32.0-35.9); MEAN CELL VOLUME 95.2 fl (80-96); MONO % 11.4 % (3.8-10.2); NEUT % 61.5 % (42.8-82.8); PLATELET COUNT 289 K/MM3 (134-434); RBC 4.07 M/mm3 (4.00-5.60); RDW 13.7 % (11.9-15.9); VENOUS PC02 46.5 mmHg (38-52); VENOUS PH 7.38 (7.32-7.42); VENOUS PO2 28.1 mmHg (28-48); WHITE BLOOD COUNT 10.9 K/mm3 (4.0-10.0)
[2018-01-14] MEDS ORDERED: guaiFENesin/CODEINE 5 ML UNIT-DOSE CUPS PO ONE (21:54)
[2018-01-14] MEDS ORDERED: DEXAMETHASONE 4 MG TABLET (FP) PO ONE ×2 (22:03→22:27)
[2018-01-14 22:07] LABS: URINE APPEARANCE SLCLOUDY; URINE BILIRUBIN NEGATIVE (<2.0 mg/dL); URINE COLOR AMBER; URINE GLUCOSE (UA) NEGATIVE (NEGATIVE); URINE KETONE NEGATIVE (NEGATIVE); URINE LEUK ESTERASE NEGATIVE (NEGATIVE); URINE NITRITE NEGATIVE (NEGATIVE); URINE PROTEIN NEGATIVE (NEGATIVE); URINE UROBILINOGEN NEGATIVE mg/dL (0.2-1.0)
[2018-01-14] MEDS ORDERED: DEXAMETHASONE SOD PHOSPHATE 4 MG/1 ML VIAL ONE ×2 (22:07→22:42)
--- NOTE | 2018-01-14 22:10 | PDOC ---
History of Present Illness - General Chief Complaint: Weakness Stated Complaint: Weakness Time Seen by Provider: 01/14/18 20:45 History Source: Patient, Other (Rabbi) Exam Limitations: No Limitations - History of Present Illness Initial Comments: 01/14/18 22:08 *pt is somewhat a poor historian Pt is an 87yo m with PMH of Afib, HLD, depression, chronic fatigue presenting to ED with [facility] with complaints of fatigue. Pt says that he should have went to rehab from his last discharge about a week ago but he has not gone. Along with fatigue, he is complaining of cough productive of green sputum. He also admits to lightheadedness. He denies fevers, chest pain, SOB, headaches, numbness/tingling, urinary symptoms, abdominal pain, n/v/d. He was admitted from January 02 to January 09 of this year for fever and found to have new onset Afib and PNA. He was discharged on Levaquin 500mg, Remeron, Diltiazem, Metoprolol, Eliquis, Crestor. Pt has 2 bottles of remeron and 2 bottles of Crestor. Pt says he does not take an extra doses of medication but Rabbi says he would not be surprised if pt accidentally took meds from each container. Pt still mostly lives out of his car. PCP: Maurice PMH: see hpi Meds: see med rec Social: denies Allergies: PCN Past History - Past Medical History Allergies/Adverse Reactions: Allergies Allergy/AdvReac Type Severity Reaction Status Date / Time Penicillins Allergy Severe throat Verified 01/14/18 19:58 swelling Home Medications: Ambulatory Orders Apixaban [Eliquis -] 5 mg PO BID #60 tablet 01/07/18 Metoprolol Succinate [Toprol XL -] 50 mg PO UTDICT #90 tab.sr.24h 01/07/18 Mirtazapine [Remeron -] 7.5 mg PO HS #30 tablet 01/07/18 Rosuvastatin [Crestor -] 5 mg PO HS #30 tablet 01/07/18 levoFLOXacin [Levaquin -] 500 mg PO DAILY #7 tablet 01/07/18 Diltiazem Cd [Cardizem Cd -] 120 mg PO DAILY #30 cap.cd.24h 10/09/18 COPD: No GI Disorders: Yes (GERD) Hypercholesterolemia: Yes - Surgical History Orthopedic Surgery: Yes (RIGHT SHOULDER SX WITH TITANIUM TAMIE) - Suicide/Smoking/Psychosocial Hx Smoking History: Never smoked Hx Alcohol Use: No Drug/Substance Use Hx: No Substance Use Type: None Hx Substance Use Treatment: No Review of Systems - Review of Systems Able to Perform ROS?: Yes Constitutional: Yes: See HPI, Loss of Appetite, Weakness. No: Chills, Fever HEENTM: No: Recent change in vision, Throat Pain, Mouth Pain Respiratory: Yes: Cough (productive of green/yellow sputum). No: Shortness of Breath, Hemoptysis Cardiac (ROS): Yes: Lightheadedness. No: Chest Pain, Palpitations, Syncope ABD/GI: No: Constipated, Diarrhea, Nausea, Rectal Bleeding, Vomiting, Abdominal cramping, Tarry Stools : No: Burning, Dysuria, Frequency, Flank Pain Musculoskeletal: No: Back Pain, Joint Pain, Neck Pain Integumentary: No: Symptoms Reported Neurological: No: Headache, Numbness, Tingling, Tremors, Weakness Psychiatric: Yes: Depression *Physical Exam - Vital Signs Last Vital Signs Temp Pulse Resp BP Pulse Ox 98.8 F 47 L 18 121/55 L 99 01/14/18 19:53 01/14/18 19:53 01/14/18 19:53 01/14/18 19:53 01/14/18 19:53 - Physical Exam Comments: 01/14/18 23:33 Pt in bed, actively coughing with Rabbi at bedside General Appearance: Yes: Appropriately Dressed, Disheveled. No: Apparent Distress HEENT: positive: EOMI, CANELO, Pharynx Normal, Hearing Decreased. negative: Pale Conjunctivae, Scleral Icterus (R), Scleral Icterus (L) Neck: positive: Trachea midline, Supple. negative: Carotid bruit, Lymphadenopathy (R), Lymphadenopathy (L) Respiratory/Chest: positive: Lungs Clear, Normal Breath Sounds. negative: Crackles, Rales, Rhonchi, Stridor, Wheezing Cardiovascular: positive: Regular Rhythm, S1, S2, Bradycardia. negative: Edema , JVD, Murmur Vascular Pulses: Carotid (R): 2+, Carotid (L): 2+, Dorsalis-Pedis (R): 2+, Doralis-Pedis (L): 2+ Gastrointestinal/Abdominal: positive: Normal Bowel Sounds, Soft. negative: Distended, Guarding, Rebound, Tenderness Musculoskeletal: negative: CVA Tenderness Extremity: positive: Normal Capillary Refill, Normal Inspection. negative: Pedal Edema, Swelling, Calf Tenderness Integumentary: positive: Normal Color, Dry, Warm. 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 NML intact, Fully Oriented, Alert, Normal Mood/ Affect, Normal Response, Motor Strength 5/5 Deep Tendon Reflexes: Knee (L): 2+, Knee (R): 2+ ED Treatment Course - LABORATORY CBC & Chemistry Diagram: 01/14/18 21:45 01/14/18 21:45 - ADDITIONAL ORDERS Additional order review: Laboratory Results 01/14/18 01/14/18 22:00 21:45 VBG pH 7.38 POC VBG pCO2 46.5 POC VBG pO2 28.1 D Mixed VBG HCO3 27.1 H Urine Color Otilia Urine Appearance Slcloudy Urine pH 5.0 Ur Specific [place] 1.023 Urine Protein Negative Urine Glucose (UA) Negative Urine Ketones Negative Urine Blood Negative Urine Nitrite Negative Urine Bilirubin Negative Urine Urobilinogen Negative Ur Leukocyte Esterase Negative 01/14/18 21:45 RBC 4.07 MCV 95.2 MCHC 34.4 RDW 13.7 MPV 8.0 D Neutrophils % 61.5 Lymphocytes % 22.6 Monocytes % 11.4 H Eosinophils % 4.1 Basophils % 0.4 - RADIOLOGY Radiology Studies Ordered: Category Date Time Status CHEST X-RAY PORTABLE* [RAD] Stat Radiology 01/14/18 21:18 Taken - Medications Given in the ED: ED Medications Discontinued Medications Generic Name Dose Route Start Last Admin Trade Name Freq PRN Reason Stop Dose Admin Albuterol/Ipratropium 1 amp 01/14/18 21:15 01/14/18 21:45 Duoneb - NEB 01/14/18 22:01 1 amp Q15M EDEL Administration Guaifenesin/Codeine Phosphate 10 ml 01/14/18 21:19 01/14/18 21:54 Robitussin Ac - PO 01/14/18 21:20 10 ml ONCE ONE Administration Medical Decision Making - Medical Decision Making 01/14/18 23:35 Pt is an 87yo m with PMH of Afib, HLD, depression, chronic fatigue presenting to ED with with complaints of fatigue and cough productive of sputum. Lives in his car. Vitals: bradycardic, normotensive, afebrile PE: coughing, clear lungs. When looking at previous vitals, pt hr at baseline. Pt on Levaquin, should cover for pna (was admitted for pna on January 02). Will order partial sepsis workup + flu swab. Ordered DuoNeb, Decadron 10mg and Robitussin for cough. Labs significant for Lact 2.4, WBC 10.9, BNP 844. Ordered NS bolus. CXR not impressive for pna, no focal densities. compared to prior CXR of 01/02, looks clearer. Will redraw lact. Flu swab negative for flu. could be having URI. 01/14/18 23:48 Pt still coughing, could still have pna (found by CT last admission) or URI. Pt has poor follow up, chronically fatigued, has no energy for activities. Unable to care for self. Not safe for discharge home. Will admit obs. Consider rehab. Microblogged symphony. Awaiting call back. Pt signed out to Dr. Bartlett *DC/Admit/Observation/Transfer Diagnosis at time of Disposition: PNA (pneumonia) - Referrals Referrals: Tia Richards MD [Primary Care Provider] - - Patient Instructions - Post Discharge Activity
[2018-01-14 22:21] LABS: INR 1.59 (0.83-1.09); PROTHROMBIN TIME (PATIENT) 18.8 SEC (9.7-13.0)
[2018-01-14 22:23] LABS: ACTIVATED PTT 31.9 SECONDS (25.2-36.5)
--- NOTE | 2018-01-14 22:25 | PDOC ---
Attending Attestation - HPI HPI: 01/14/18 22:26 The patient is a 87 year old male, with a significant past medical history of hld, depression, sleep apnea, Lyme disease, who presents to the emergency department with fatigue, decreased appetite, and generalized weakness since being discharged from this hospital on 01/09/18 for RLL pneumonia. He states he denied placement to a rehab upon discharge and regrets not going at the time. He states he is currently taking levaquin. The patient denies chest pain, shortness of breath, headache and dizziness. The patient denies fever, chills, nausea, vomit, diarrhea and constipation. The patient denies dysuria, frequency, urgency and hematuria. Allergies: NKDA Social Hx: Pt lives in his car - Medical Decision Making 01/14/18 22:26 Documentation prepared by Jaelyn Conway, acting as medical sonographer for Francie Caldwell MD <Jaelyn Conway - Last Filed: 01/14/18 22:26> - Resident Resident Name: Key Harvey - ED Attending Attestation I have performed the following: I have examined & evaluated the patient, The case was reviewed & discussed with the resident, I agree w/resident's findings & plan, Exceptions are as noted - Physicial Exam PE: GENERAL: Awake, alert, and fully oriented, in no acute distress. Intermittent fits of hacking cough. HEAD: No signs of trauma EYES: PERRLA, EOMI, sclera anicteric, conjunctiva clear ENT: Auricles normal inspection, hearing grossly normal, nares patent, oropharynx clear without exudates. Moist mucosa NECK: Normal ROM, supple, no lymphadenopathy, JVD, or masses LUNGS: Dec air entry B/L, scattered exp wheezes. No crackles. HEART: Regular rate and rhythm, normal S1 and S2, no murmurs, rubs or gallops ABDOMEN: Soft, nontender, normoactive bowel sounds. No guarding, no rebound. No masses EXTREMITIES: Normal range of motion, no edema. No clubbing or cyanosis. No cords, erythema, or tenderness NEUROLOGICAL: Cranial nerves II through XII grossly intact. Normal speech. Motor and sensation intact. SKIN: Warm, Dry, normal turgor, no rashes or lesions noted. - Medical Decision Making Pt with history of recent pna on outpatient levaquin, has not been improving. Presents with persistent hacking cough, sensation that something is stuck in his throat. Patient unable to speak on initial evaluation. Required nebs, steroids, robitussin with codeine for improvement, now able to speak. He has been living out of his car (home is not liveable due to cat feces), concern that he is not improving due to poor living conditions. <Francie Caldwell - Last Filed: 01/15/18 01:27>
[2018-01-14] MEDS ORDERED: SODIUM CHLORIDE 1,000 ML IV STA (22:27)
[2018-01-14 22:29] LABS: ALBUMIN 3.2 g/dl (3.4-5.0); ALK PHOS 62 U/L (45-117); ANION GAP 8 MMOL/L (8-16); BILIRUBIN,TOTAL 0.4 mg/dL (0.2-1); BLOOD UREA NITROGEN 16 mg/dL (7-18); CALCIUM 9.1 mg/dL (8.5-10.1); CHLORIDE 108 mmol/L (98-107); CO2 28 mmol/L (21-32); CREATININE 1.1 mg/dL (0.55-1.3); GLUCOSE,RANDOM 108 mg/dL (74-106); MAGNESIUM 2.3 mg/dL (1.8-2.4); N-TERMINAL BNP 844.7 pg/ml (5-450); PHOSPHOROUS 3.6 mg/dL (2.5-4.9); POTASSIUM 4.5 mmol/L (3.5-5.1); SGOT/AST 15 U/L (15-37); SGPT/ALT 16 U/L (13-61); SODIUM 144 mmol/L (136-145); TOT PROT 6.8 g/dl (6.4-8.2)
--- NOTE | 2018-01-15 00:16 | PDOC ---
*Physical Exam - Vital Signs Last Vital Signs Temp Pulse Resp BP Pulse Ox 98.8 F 47 L 18 121/55 L 99 01/14/18 19:53 01/14/18 19:53 01/14/18 19:53 01/14/18 19:53 01/14/18 20:00 01/15/18 00:15 Care endorsed to me by Dr. Harvey at the end of her shift pending passdown to [facility]. DX is unresolved PNA despite outpatient abx (Levaquin), unable to care for self. ED Treatment Course - LABORATORY CBC & Chemistry Diagram: 01/14/18 21:45 01/14/18 21:45 - ADDITIONAL ORDERS Additional order review: Laboratory Results 01/14/18 01/14/18 01/14/18 22:00 21:50 21:45 PT with INR INR PTT (Actin FS) VBG pH POC VBG pCO2 POC VBG pO2 Mixed VBG HCO3 Sodium Potassium Chloride Carbon Dioxide Anion Gap BUN Creatinine Creat Clearance w eGFR Random Glucose Lactic Acid 2.2 H* Calcium Phosphorus Magnesium Total Bilirubin AST ALT Alkaline Phosphatase Troponin I < 0.02 B-Natriuretic Peptide Total Protein Albumin Urine Color Otilia Urine Appearance Slcloudy Urine pH 5.0 Ur Specific [place] 1.023 Urine Protein Negative Urine Glucose (UA) Negative Urine Ketones Negative Urine Blood Negative Urine Nitrite Negative Urine Bilirubin Negative Urine Urobilinogen Negative Ur Leukocyte Esterase Negative 01/14/18 01/14/18 01/14/18 21:45 21:45 21:45 PT with INR 18.80 H INR 1.59 H PTT (Actin FS) 31.9 VBG pH 7.38 POC VBG pCO2 46.5 POC VBG pO2 28.1 D Mixed VBG HCO3 27.1 H Sodium 144 Potassium 4.5 Chloride 108 H Carbon Dioxide 28 Anion Gap 8 BUN 16 Creatinine 1.1 Creat Clearance w eGFR > 60 Random Glucose 108 H Lactic Acid Calcium 9.1 Phosphorus 3.6 Magnesium 2.3 Total Bilirubin 0.4 AST 15 ALT 16 Alkaline Phosphatase 62 Troponin I B-Natriuretic Peptide 844.7 H Total Protein 6.8 Albumin 3.2 L Urine Color Urine Appearance Urine pH Ur Specific [place] Urine Protein Urine Glucose (UA) Urine Ketones Urine Blood Urine Nitrite Urine Bilirubin Urine Urobilinogen Ur Leukocyte Esterase 01/14/18 20:00 Influenza Types A,B Antigen - Final Nasopharyngeal Swab - Final 01/14/18 21:45 RBC 4.07 MCV 95.2 MCHC 34.4 RDW 13.7 MPV 8.0 D Neutrophils % 61.5 Lymphocytes % 22.6 Monocytes % 11.4 H Eosinophils % 4.1 Basophils % 0.4 - Medications Given in the ED: ED Medications Discontinued Medications Generic Name Dose Route Start Last Admin Trade Name Froylan PRN Reason Stop Dose Admin Albuterol/Ipratropium 1 amp 01/14/18 21:15 01/14/18 22:00 Duoneb - NEB 01/14/18 22:01 1 amp Q15M EDEL Administration Dexamethasone 4 mg 01/14/18 22:03 01/14/18 22:08 Decadron - PO 01/14/18 22:04 4 mg ONCE ONE Administration Dexamethasone 6 mg 01/14/18 22:27 01/14/18 22:45 Decadron - PO 01/14/18 22:28 6 mg ONCE ONE Administration Guaifenesin/Codeine Phosphate 10 ml 01/14/18 21:19 01/14/18 21:54 Robitussin Ac - PO 01/14/18 21:20 10 ml ONCE ONE Administration Sodium Chloride 1,000 mls @ 1,000 mls/hr 01/14/18 22:27 01/14/18 22:45 Normal Saline - IV 01/14/18 23:26 1,000 mls/hr ASDIR STA Administration Medical Decision Making - Medical Decision Making 01/15/18 00:[address] Ordaz regarding the patient; he is here to see the patient in the ED. Decision to Admit order is placed. *DC/Admit/Observation/Transfer Diagnosis at time of Disposition: PNA (pneumonia) - Discharge Dispostion Condition at time of disposition: Guarded Decision to Admit order: Yes - Referrals Referrals: Tia Richards MD [Primary Care Provider] - - Patient Instructions - Post Discharge Activity
--- NOTE | 2018-01-15 00:57 | PN ---
Teaching Attending Note Name of Resident: Charles Arriola ATTENDING PHYSICIAN STATEMENT I saw and evaluated the patient. I reviewed the resident's note and discussed the case with the resident. I agree with the resident's findings and plan as documented. SUBJECTIVE: Patient is an 87 year old man with PMH of Afib, HLD, depression, lyme disease, chronic fatigue presenting to ED with with complaints of fatigue. He says that he should have gone to rehab from his last discharge about a week ago but he has not gone. Along with fatigue, he is complaining of cough productive of green sputum. He also admits to lightheadedness. He denies fevers, chest pain, SOB, headaches, numbness/tingling, urinary symptoms, abdominal pain, vomiting or diarrhea. He was admitted from January 02 to January 09 of this year for fever and found to have new onset Afib and PNA. He was discharged on Levaquin 500mg, Remeron, Diltiazem, Metoprolol, Eliquis, Crestor. Patient has 2 bottles of remeron and 2 bottles of Crestor. Pt says he does not take an extra doses of medication but Rabbi says he would not be surprised if pt accidentally took meds from each container. He still mostly lives out of his car. OBJECTIVE: Alert Vital Signs Period Temp Pulse Resp BP Sys/Cardenas Pulse Ox Last 24 Hr 98.8 F 47 18 121/55 99-99 HEENT: No Jaundice, eye redness or discharge, PERRLA, EOMI. Normocephalic, atraumatic. External ears are normal and hearing is grossly intact. No nasal discharge. Neck: Supple, nontender. No palpable adenopathy or thyromegaly. No JVD Chest: Good effort. Clear to auscultation and percussion. Heart: Irregular. No S3, rub or murmur Abdomen: Not distended, soft, nontender and no HSM. No rebound or guarding. Normoactive bowel sounds. Ext: Peripheral pulses intact. No leg edema. Skin: Warm and dry. No petechiae, rash or ecchymosis. Neuro: Alert. Oriented x3. CN 2-12 grossly intact. Denies suicidal or homicidal ideation. Sensation grossly intact in all four extremities and DTR are symmetric. Home Medications Medication Instructions Recorded Apixaban [Eliquis -] 5 mg PO BID #60 tablet 01/07/18 Metoprolol Succinate [Toprol XL -] 50 mg PO UTDICT #90 tab.sr.24h 01/07/18 Mirtazapine [Remeron -] 7.5 mg PO HS #30 tablet 01/07/18 Rosuvastatin [Crestor -] 5 mg PO HS #30 tablet 01/07/18 levoFLOXacin [Levaquin -] 500 mg PO DAILY #7 tablet 01/07/18 Diltiazem Cd [Cardizem Cd -] 120 mg PO DAILY #30 cap.cd.24h 01/09/18 Abnormal Lab Results 01/14/18 01/14/18 01/14/18 21:45 21:45 21:45 WBC 10.9 H Monocytes % 11.4 H PT with INR 18.80 H INR 1.59 H Mixed VBG HCO3 27.1 H Chloride Random Glucose Lactic Acid B-Natriuretic Peptide Albumin 01/14/18 01/14/18 21:45 21:50 WBC Monocytes % PT with INR INR Mixed VBG HCO3 Chloride 108 H Random Glucose 108 H Lactic Acid 2.2 H* B-Natriuretic Peptide 844.7 H Albumin 3.2 L ASSESSMENT AND PLAN: 1. Incompletely treated Pneumonia - Will send urine legionella antigen. CXR shows possible RLL infiltrate. He is allergic to penicillin - will treat with IV Levaquin 750 mg qd and cough expectorant. He has increased BNP so will avoid excessive hydration for lactic acidosis. Consult ID and Pulmonary. Continue eliquis for afib and trend lactic acid. Get ECHO. Has features of depression. Will treat with Zoloft 50 mg po q HS and consult Psychiatry. 2. DVT prophylaxis - On Eliquis 3. Advance directives - Full code
--- NOTE | 2018-01-15 02:28 | HP ---
CHIEF COMPLAINT: PCP: Dr Richards HISTORY OF PRESENT ILLNESS: Pt is an 87 y/o gentleman with a significant past medical history of afib, sleep apnea, lyme disease, HLD, and depression. Pt presented to [facility] yesterday evening via ambulance c/o generalized fatigue and "not feeling like myself". Pt was recently discharged from our hospital on 01/09 where he was diagnosed with a RLL pneumonia and new onset atrial fibrillation. Pt was discharged on Levaquin 500mg, Remeron, Diltiazem, Metoprolol, Eliquis, and Crestor. Pt endorses that he has lost approximately 25 pounds over the last 6 months. States he has not been eating as much and has had decreased energy. Also endorsing feelings of guilt and decreased energy. Endorses chronic cough productive of greenish/yellow sputum. Pt denies fevers, chest pain, SOB, headaches, numbness/tingling, urinary symptoms, abdominal pain, vomiting or diarrhea. ER course was notable for: (1) Lactic acid 2.2 (2)WBC 10.9 (3) Afib Recent Travel: PAST MEDICAL HISTORY: Per HPI PAST SURGICAL HISTORY: R Shoulder surgery with titanium della Social History: Smoking: Alcohol: Drugs: Family History: Allergies Penicillins Allergy (Severe, Verified 01/14/18 19:58) throat swelling HOME MEDICATIONS: Home Medications Medication Instructions Recorded Apixaban [Eliquis -] 5 mg PO BID #60 tablet 01/07/18 Metoprolol Succinate [Toprol XL -] 50 mg PO UTDICT #90 tab.sr.24h 01/07/18 Mirtazapine [Remeron -] 7.5 mg PO HS #30 tablet 01/07/18 Rosuvastatin [Crestor -] 5 mg PO HS #30 tablet 01/07/18 levoFLOXacin [Levaquin -] 500 mg PO DAILY #7 tablet 01/07/18 Diltiazem Cd [Cardizem Cd -] 120 mg PO DAILY #30 cap.cd.24h 01/09/18 REVIEW OF SYSTEMS CONSTITUTIONAL: PRESENT: fever, chills, generalized weakness, malaise, loss of appetite, weight change HEENT: Absent: rhinorrhea, nasal congestion, throat pain, throat swelling, difficulty swallowing, mouth swelling, ear pain, eye pain, visual changes CARDIOVASCULAR: Absent: chest pain, syncope, palpitations, irregular heart rate, lightheadedness , peripheral edema RESPIRATORY: PRESENT: cough GASTROINTESTINAL: Absent: abdominal pain, abdominal distension, nausea, vomiting, diarrhea, constipation, melena, hematochezia GENITOURINARY: Absent: dysuria, frequency, urgency, hesitancy, hematuria, flank pain, genital pain MUSCULOSKELETAL: Absent: myalgia, arthralgia, joint swelling, back pain, neck pain SKIN: Absent: rash, itching, pallor HEMATOLOGIC/IMMUNOLOGIC: Absent: easy bleeding, easy bruising, lymphadenopathy, frequent infections ENDOCRINE: Absent: unexplained weight gain, unexplained weight loss, heat intolerance, cold intolerance NEUROLOGIC: Absent: headache, focal weakness or paresthesias, dizziness, unsteady gait, seizure, mental status changes, bladder or bowel incontinence PSYCHIATRIC: PRESENT: anxiety, depression PHYSICAL EXAMINATION Vital Signs - 24 hr 01/14/18 01/14/18 19:53 20:00 Temperature 98.8 F Pulse Rate 47 L Respiratory 18 Rate Blood Pressure 121/55 L O2 Sat by Pulse 99 99 Oximetry (%) GENERAL: AAOx3, NAD HEAD: NC/AT EYES: EOMI, PERRLA, no scleral icterus EARS, NOSE, THROAT: MMM NECK: Supple LUNGS: + expiratory wheezes. HEART: Irregularly irregular ABDOMEN:ND, NT, No HSM. BS + MUSCULOSKELETAL: FROM throughout UPPER EXTREMITIES: Osteoarthritis, [place] nodes b/l LOWER EXTREMITIES: No CCE NEUROLOGICAL: CN 2-12 intact PSYCHIATRIC: Depression SKIN: No rashes or lesions appreciated Laboratory Results - last 24 hr 01/14/18 01/14/18 01/14/18 21:45 21:45 21:45 WBC 10.9 H RBC 4.07 Hgb 13.3 Hct 38.7 MCV 95.2 MCH 32.8 MCHC 34.4 RDW 13.7 Plt Count 289 D MPV 8.0 D Absolute Neuts (auto) 6.7 Neutrophils % 61.5 Lymphocytes % 22.6 Monocytes % 11.4 H Eosinophils % 4.1 Basophils % 0.4 Nucleated RBC % 0 PT with INR 18.80 H INR 1.59 H PTT (Actin FS) 31.9 VBG pH 7.38 POC VBG pCO2 46.5 POC VBG pO2 28.1 D Mixed VBG HCO3 27.1 H Sodium Potassium Chloride Carbon Dioxide Anion Gap BUN Creatinine Creat Clearance w eGFR Random Glucose Lactic Acid Calcium Phosphorus Magnesium Total Bilirubin AST ALT Alkaline Phosphatase Troponin I B-Natriuretic Peptide Total Protein Albumin Urine Color Urine Appearance Urine pH Ur Specific [place] Urine Protein Urine Glucose (UA) Urine Ketones Urine Blood Urine Nitrite Urine Bilirubin Urine Urobilinogen Ur Leukocyte Esterase 01/14/18 01/14/18 01/14/18 21:45 21:45 21:50 WBC RBC Hgb Hct MCV MCH MCHC RDW Plt Count MPV Absolute Neuts (auto) Neutrophils % Lymphocytes % Monocytes % Eosinophils % Basophils % Nucleated RBC % PT with INR INR PTT (Actin FS) VBG pH POC VBG pCO2 POC VBG pO2 Mixed VBG HCO3 Sodium 144 Potassium 4.5 Chloride 108 H Carbon Dioxide 28 Anion Gap 8 BUN 16 Creatinine 1.1 Creat Clearance w eGFR > 60 Random Glucose 108 H Lactic Acid 2.2 H* Calcium 9.1 Phosphorus 3.6 Magnesium 2.3 Total Bilirubin 0.4 AST 15 ALT 16 Alkaline Phosphatase 62 Troponin I < 0.02 B-Natriuretic Peptide 844.7 H Total Protein 6.8 Albumin 3.2 L Urine Color Urine Appearance Urine pH Ur Specific [place] Urine Protein Urine Glucose (UA) Urine Ketones Urine Blood Urine Nitrite Urine Bilirubin Urine Urobilinogen Ur Leukocyte Esterase 01/14/18 01/15/18 22:00 00:12 WBC RBC Hgb Hct MCV MCH MCHC RDW Plt Count MPV Absolute Neuts (auto) Neutrophils % Lymphocytes % Monocytes % Eosinophils % Basophils % Nucleated RBC % PT with INR INR PTT (Actin FS) VBG pH POC VBG pCO2 POC VBG pO2 Mixed VBG HCO3 Sodium Potassium Chloride Carbon Dioxide Anion Gap BUN Creatinine Creat Clearance w eGFR Random Glucose Lactic Acid 2.0 Calcium Phosphorus Magnesium Total Bilirubin AST ALT Alkaline Phosphatase Troponin I B-Natriuretic Peptide Total Protein Albumin Urine Color Otilia Urine Appearance Slcloudy Urine pH 5.0 Ur Specific [place] 1.023 Urine Protein Negative Urine Glucose (UA) Negative Urine Ketones Negative Urine Blood Negative Urine Nitrite Negative Urine Bilirubin Negative Urine Urobilinogen Negative Ur Leukocyte Esterase Negative ASSESSMENT/PLAN: Pt is an 87 y/o gentleman with a significant past medical history of afib, sleep apnea, lyme disease, HLD, and depression. Pt presented to [facility] yesterday evening via ambulance c/o generalized fatigue and "not feeling like myself". # Pneumonia -Recently discharged from hospital 01/09 for RLL pneumonia -CT Chest 01/03/18--> Patchy consolidation R lower lobe suspicious for acute pneumonia, small associated R pleural effusion. -Taking Levaquin 500 po daily -Levaquin 750 mg IV -ID Consult, Pulm consult -Urine Legionella antigen # Major Depressive disorder? -Sleep disturbance -Endorses impaired concentration -Admits to frequent guilty feelings -endorses decreased energy - Has decreased appetite and weight loss -Psychology consult -Consider the addition of an SSRI # HLD -Resume home medications # AFIB Resume Eliquis FEN No Fluids Monitor Electrolytes Sodium controlled Diet DVT ppx: Eliquis 5 mg po bid Dispo: Obs Visit type - Emergency Visit Emergency Visit: Yes ED Registration Date: 01/15/18 Care time: The patient presented to the Emergency Department on the above date and was hospitalized for further evaluation of their emergent condition. - New Patient This patient is new to me today: Yes Date on this admission: 01/15/18 - Critical Care Critical Care patient: No
[2018-01-15 06:44] LABS: BASO % 0.1 % (0-2.0); EOS % 0.1 % (0-4.5); HEMATOCRIT 38.2 % (35.4-49); HEMOGLOBIN 13.4 GM/dL (11.7-16.9); LYMPH % 11.6 % (8-40); MCH 34.3 pg (25.7-33.7); MCHC 35.1 g/dl (32.0-35.9); MEAN CELL VOLUME 97.7 fl (80-96); MEAN PLT VOLUME 7.9 fl (7.5-11.1); MONO % 1.3 % (3.8-10.2); NEUT % 86.9 % (42.8-82.8); PLATELET COUNT 295 K/MM3 (134-434); RBC 3.91 M/mm3 (4.00-5.60); RDW 13.8 % (11.9-15.9); WHITE BLOOD COUNT 7.7 K/mm3 (4.0-10.0)
[2018-01-15 06:59] LABS: INR 1.4 (0.83-1.09); PROTHROMBIN TIME (PATIENT) 16.6 SEC (9.7-13.0)
[2018-01-15 07:25] LABS: ANION GAP 13 MMOL/L (8-16); BLOOD UREA NITROGEN 18 mg/dL (7-18); CALCIUM 9.2 mg/dL (8.5-10.1); CHLORIDE 108 mmol/L (98-107); CO2 23 mmol/L (21-32); CREATININE 1.3 mg/dL (0.55-1.3); GLUCOSE,RANDOM 228 mg/dL (74-106); MAGNESIUM 2.3 mg/dL (1.8-2.4); PHOSPHOROUS 3.8 mg/dL (2.5-4.9); POTASSIUM 4.7 mmol/L (3.5-5.1); SODIUM 143 mmol/L (136-145)
[2018-01-15 08:09] VITALS: BMI 27.1
--- NOTE | 2018-01-15 09:25 | CON.ID ---
Consult Consult Specialty:: Infectious disease Referred by:: hospitalist Reason for Consultation:: cough - History of Present Illness Chief Complaint: fatigue History of Present Illness: 87 yo man lives alone recently hospitalized 01/03 to 109 with fatiue new afib small RLL infiltrated noted on ct scan he was dscharged on 04/11 on levaquin- which he has completed all but one tablet didnot pick pu his metoprolol until yesterday no fevers now wants to go to rehab coughs when he lays flat doesnot cough when he is sitting states his house is a mess and he needs help interestingly he does not remember meeting me at all last week! 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 [employer] Place of : [facility] History of Recent Travel: No Home Medications - Allergies Allergies/Adverse Reactions: Allergies Allergy/AdvReac Type Severity Reaction Status Date / Time Penicillins Allergy Severe throat Verified 01/14/18 19:58 swelling - Home Medications Home Medications: Ambulatory Orders Apixaban [Eliquis -] 5 mg PO BID #60 tablet 01/07/18 Metoprolol Succinate [Toprol XL -] 50 mg PO UTDICT #90 tab.sr.24h 01/07/18 Mirtazapine [Remeron -] 7.5 mg PO HS #30 tablet 01/07/18 Rosuvastatin [Crestor -] 5 mg PO HS #30 tablet 01/07/18 levoFLOXacin [Levaquin -] 500 mg PO DAILY #7 tablet 01/07/18 Diltiazem Cd [Cardizem Cd -] 120 mg PO DAILY #30 cap.cd.24h 01/09/18 Family Disease History - Family Disease History Family History: Denies Review of Systems - Review of Systems Constitutional: reports: Unintentional Wgt. Loss Eyes: reports: No Symptoms HENT: reports: No Symptoms Neck: reports: No Symptoms Cardiovascular: reports: No Symptoms. denies: Chest Pain, Edema Respiratory: reports: Cough Gastrointestinal: reports: No Symptoms Genitourinary: reports: No Symptoms Musculoskeletal: reports: No Symptoms Integumentary: reports: No Symptoms Physical Exam Vital Signs: Vital Signs Temperature 98 F 01/15/18 09:07 Pulse Rate 110 H 01/15/18 09:07 Respiratory Rate 18 01/15/18 09:07 Blood Pressure 124/79 01/15/18 09:07 O2 Sat by Pulse Oximetry (%) 97 01/15/18 05:50 Constitutional: Yes: Well Nourished, No Distress Eyes: Yes: Conjunctiva Clear HENT: Yes: Atraumatic, Normocephalic. No: Thrush Neck: Yes: Supple, Trachea Midline Cardiovascular: Yes: Pulse Irregular Respiratory: Yes: Regular, CTA Bilaterally Gastrointestinal: Yes: Normal Bowel Sounds, Soft. No: Tenderness ...Rectal Exam: Yes: Deferred Extremities: Yes: WNL Edema: No Psychiatric: Yes: Alert Labs: CBC, BMP 01/15/18 06:00 01/15/18 06:00 Imaging - Results Chest X-ray: Report Reviewed Problem List - Problems (1) Fatigue Code(s): R53.83 - OTHER FATIGUE (2) Cough Code(s): R05 - COUGH (3) Penicillin allergy Code(s): Z88.0 - ALLERGY STATUS TO PENICILLIN (4) Afib Code(s): I48.91 - UNSPECIFIED ATRIAL FIBRILLATION Assessment/Plan has completed a course of levaquin cxray is clear no signs pneumonia cough is positional ?GERD, ?post nasal drip, ?chf consider pulmonary/cardiology eval echo with evidence pulmonary HTN overall seem to have decline in memory and ability to care for himself- consider dementia workup d/c levaquin
--- NOTE | 2018-01-15 10:31 | CON.PSL ---
Psychology Consult Consult Specialty:: Clinical Psychology and Neuropsychology History Provided By: Patient Limitations to Obtaining History: Other (Poor hearing impacted on the evaluation to some degree.) Current Medications: Active Medications Apixaban (Eliquis -) 5 mg PO BID EDEL Diltiazem HCl (Cardizem Cd -) 120 mg PO DAILY EDEL Metoprolol Succinate (Toprol Xl -) 50 mg PO BID EDEL Mirtazapine (Remeron -) 7.5 mg PO HS EDEL Rosuvastatin Calcium (Crestor -) 5 mg PO HS EDEL Allergies: Allergies Allergy/AdvReac Type Severity Reaction Status Date / Time Penicillins Allergy Severe throat Verified 01/14/18 19:58 swelling Does patient have pain?: No Current Medical Exam-Psy Orientation: Time, Person, Place Immediate Term Memory: 06/03 Expressive: Coherent Receptive: Age Appropriate Comprehension of Spoken Words Hallucinations: Absent Depression: Moderate (At times his mood may be suggestive of severe depression.) Hopelessness: No Loss of Interest: No Anxiety Level: Moderate Danger to Self and Others: No Sleep: Well (He sleeps well at home even without the CPAP at times.) Appetite: Poor (He has no desire to eat.) Serial Sevens Intact: Yes (His concentration wavered.) Repeats 3 words told earlier: 0/3 Support System: Significant Other, Friend Leisure activities: With friends Problem List - Problem (1) Anxiety about health Code(s): F41.8 - OTHER SPECIFIED ANXIETY DISORDERS (2) Depression Code(s): F32.9 - MAJOR DEPRESSIVE DISORDER, SINGLE EPISODE, UNSPECIFIED Qualifiers: Depression Type: major depressive disorder Major depression recurrence: recurrent Active/Remission status: currently active Major depression episode severity: moderate Qualified Code(s): F33.1 - Major depressive disorder, recurrent, moderate Assessment/Plan The patient did not appear hopeless and still seemed to have an interest in things. He is experiencing severe fatigue after having slept well according to his self description. His loss of appetite is a mystery to him as well. He attributes his decline to his age. It appears that he experiences mind chatter that is related to personal issues he does not want to disclose in his medical record. He has a past hx of psychiatric and psychological treatment. It is recommended that he be seen in psychotherapy while remaining as a patient here as well upon his discharge.
--- NOTE | 2018-01-15 10:35 | EKG ---
Test Reason : Blood Pressure : / mmHG Vent. Rate : 098 BPM Atrial Rate : 071 BPM P-R Int : 000 ms QRS Dur : 074 ms QT Int : 364 ms P-R-T Axes : 000 -17 038 degrees QTc Int : 464 ms ATRIAL FIBRILLATION ABNORMAL ECG WHEN COMPARED WITH ECG OF 04-JAN-2018 02:47, T WAVE VARIATION Confirmed by ANTHONY DURAN MD ([id number]) on 01/15/2018 10:34:57 AM Referred By: Confirmed By:ANTHONY DURAN MD
[2018-01-15] MEDS ORDERED: PT OWN MED DRAWER 7, Y5N ONE ×3 (10:37→21:22)
--- NOTE | 2018-01-15 12:38 | DS ---
Physical Examination Vital Signs: Vital Signs Temperature 36.6 C 01/15/18 09:07 Pulse Rate 110 H 01/15/18 09:07 Respiratory Rate 18 01/15/18 09:07 Blood Pressure 124/79 01/15/18 09:07 O2 Sat by Pulse Oximetry (%) 97 01/15/18 05:50 Labs: CBC, BMP 01/15/18 06:00 01/15/18 06:00 Discharge Summary Reason For Visit: PNEUMONIA Current Active Problems Afib (Acute) Anxiety about health (Acute) Cough (Acute) Penicillin allergy (Acute) Pneumonia (Acute) Condition: Stable - Instructions Diet, Activity, Other Instructions: resume previous diet and activity Referrals: Tia Richards MD [Primary Care Provider] - Angelina Potter MD [Staff Physician] - Disposition: HOME - Home Medications Comprehensive Discharge Medication List: Ambulatory Orders Apixaban [Eliquis -] 5 mg PO BID #60 tablet 01/07/18 Metoprolol Succinate [Toprol XL -] 50 mg PO UTDICT #90 tab.sr.24h 01/07/18 Mirtazapine [Remeron -] 7.5 mg PO HS #30 tablet 01/07/18 Rosuvastatin [Crestor -] 5 mg PO HS #30 tablet 01/07/18 Diltiazem Cd [Cardizem Cd -] 120 mg PO DAILY #30 cap.cd.24h 01/09/18
--- NOTE | 2018-01-15 13:11 | CON.PULM ---
Consult Consult Specialty:: PULM/CCM Referred by:: CHEMO Reason for Consultation:: Cough - History of Present Illness Chief Complaint: Cough History of Present Illness: 87 M, OSAS on CPAP (some issues with compliance due to social situation), recent onset of new AFib, and RLL CAP. Was discharged on 01/09 on levaquin. Returns due to essentially dry cough that happens mostly when he is lying flat. No fever or chills. No hemoptysis. Reports Excessive Daytime Sleepiness (EDS) and tremendous fatigue that seems debilitating. Reports some progressive memory loss. 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 History of Recent Travel: No Home Medications - Allergies Allergies/Adverse Reactions: Allergies Allergy/AdvReac Type Severity Reaction Status Date / Time Penicillins Allergy Severe throat Verified 01/14/18 19:58 swelling - Home Medications Home Medications: Ambulatory Orders Apixaban [Eliquis -] 5 mg PO BID #60 tablet 01/07/18 Metoprolol Succinate [Toprol XL -] 50 mg PO UTDICT #90 tab.sr.24h 01/07/18 Mirtazapine [Remeron -] 7.5 mg PO HS #30 tablet 01/07/18 Rosuvastatin [Crestor -] 5 mg PO HS #30 tablet 01/07/18 Diltiazem Cd [Cardizem Cd -] 120 mg PO DAILY #30 cap.cd.24h 01/09/18 Review of Systems - Review of Systems Constitutional: reports: Lethargy, Malaise, Unintentional Wgt. Loss, Weakness. denies: Chills, Fever, Night Sweats Eyes: reports: No Symptoms HENT: reports: No Symptoms Neck: reports: No Symptoms Cardiovascular: denies: Chest Pain, Edema, Palpitations, Shortness of Breath Respiratory: reports: Cough, Snoring, SOB on Exertion. denies: Hemoptysis, Wheezing Gastrointestinal: reports: No Symptoms Genitourinary: reports: No Symptoms Breasts: reports: No Symptoms Reported Musculoskeletal: reports: No Symptoms Integumentary: reports: No Symptoms Neurological: reports: No Symptoms Endocrine: reports: No Symptoms Hematology/Lymphatic: reports: No Symptoms Psychiatric: reports: No Symptoms Physical Exam Vital Sings: Vital Signs Temperature 98 F 01/15/18 09:07 Pulse Rate 110 H 01/15/18 09:07 Respiratory Rate 18 01/15/18 09:07 Blood Pressure 124/79 01/15/18 09:07 O2 Sat by Pulse Oximetry (%) 97 01/15/18 05:50 Constitutional: Yes: No Distress, Calm Eyes: Yes: Conjunctiva Clear, EOM Intact HENT: Yes: Atraumatic, Normocephalic Neck: Yes: Supple, Trachea Midline Cardiovascular: Yes: Pulse Irregular Respiratory: Yes: CTA Bilaterally, Cough. No: Accessory Muscle Use, On Nasal O2 , Rales, Rhonchi, Stridor, Tachypnea, Wheezes ...Inspection: Yes: WNL ...Clubbing: No Gastrointestinal: Yes: Normal Bowel Sounds, Soft Renal/: Yes: WNL Musculoskeletal: Yes: WNL Extremities: Yes: WNL Edema: No Integumentary: Yes: WNL Neurological: Yes: WNL, Alert, Oriented ...Motor Strength: WNL Psychiatric: Yes: WNL, Alert, Oriented Labs: CBC, BMP 01/15/18 06:00 01/15/18 06:00 Imaging - Results Chest X-ray: Report Reviewed, Image Reviewed Problem List - Problems (1) Sleep apnea Code(s): G47.30 - SLEEP APNEA, UNSPECIFIED (2) Afib Code(s): I48.91 - UNSPECIFIED ATRIAL FIBRILLATION (3) Cough Code(s): R05 - COUGH (4) Depression Code(s): F32.9 - MAJOR DEPRESSIVE DISORDER, SINGLE EPISODE, UNSPECIFIED Qualifiers: Depression Type: major depressive disorder Major depression recurrence: recurrent Active/Remission status: currently active Major depression episode severity: moderate Qualified Code(s): F33.1 - Major depressive disorder, recurrent, moderate (5) Fatigue Code(s): R53.83 - OTHER FATIGUE (6) HLD (hyperlipidemia) Code(s): E78.5 - HYPERLIPIDEMIA, UNSPECIFIED Assessment/Plan Resolved CAP Residual post infectious cough May be a component of post nasal drip augmenting his cough No GERD history Patient would benefit from a repeat CPAP titration study to assess efficacy of his current settings as many of his symptoms can be consistent with suboptimally treated OSAS No Pulmonary contraindication for D/C Thank you. Dr Vallejo
[2018-01-15] MEDS ORDERED: BENZOCAINE/MENTH/CETYLPYRD CL 1 EACH LOZENGE MM PRN (15:13)
[2018-01-15] MEDS: APIXABAN 5 MG TABLET PO SCH ×2 (15:42→22:25)
[2018-01-15] MEDS ORDERED: ROSUVASTATIN CA 5 MG TABLET (FP) PO SCH (22:00)
[2018-01-15] MEDS ORDERED: MIRTAZAPINE 15 MG TABLET (FP) PO SCH (22:00)
--- NOTE | 2018-01-16 10:55 | PN ---
Progress Note (short form) - Note Progress Note: The patient complained of fatigue although he states that he slept well. He also still needs to be seen by an ENT specialist as he complains of wax in his ears. He discussed that anxiety ridden thoughts that are affecting him. We worked on how to cope. He was advised to use a deep breath and the word "calm" to reduce anxiety and reframe anxiety ridden beliefs. His STM (memory) is quite compromised. Given his age, it may be a reflection of the normal aging process. However, it would be of value to have a family meeting with significant others in his life to rule out the presence of delusions. Problem List - Problems (1) Anxiety about health Code(s): F41.8 - OTHER SPECIFIED ANXIETY DISORDERS (2) Depression Code(s): F32.9 - MAJOR DEPRESSIVE DISORDER, SINGLE EPISODE, UNSPECIFIED Qualifiers: Depression Type: major depressive disorder Major depression recurrence: recurrent Active/Remission status: currently active Major depression episode severity: moderate Qualified Code(s): F33.1 - Major depressive disorder, recurrent, moderate
[2018-01-16 11:29] VITALS: PULSE 72
[2018-01-16] MEDS: APIXABAN 5 MG TABLET PO SCH (11:36)
[2018-01-16 15:20] VITALS: BP 128/65; TEMP 98.3
--- NOTE | 2018-01-16 15:53 | PN ---
Progress Note, Physician Chief Complaint: Mr Freedman complains of being weak and tired. Says he has no energy. Also says he needs his apartment to be cleaned. No new complaints from last admission. - Current Medication List Current Medications: Active Medications Apixaban (Eliquis -) 5 mg PO BID [facility] Last Admin: 01/16/18 11:36 Dose: 5 mg Benzocaine/Menthol (Cepacol Lozenge -) 1 each MM PRN PRN PRN Reason: SORE THROAT Last Admin: 01/15/18 17:54 Dose: 1 each Diltiazem HCl (Cardizem Cd -) 120 mg PO DAILY [facility] Last Admin: 01/16/18 11:26 Dose: 120 mg Metoprolol Succinate (Toprol Xl -) 50 mg PO BID [facility] Last Admin: 01/16/18 11:26 Dose: 50 mg Mirtazapine (Remeron -) 7.5 mg PO [facility] Last Admin: 01/15/18 22:26 Dose: 7.5 mg Rosuvastatin Calcium (Crestor -) 5 mg PO [facility] Last Admin: 01/15/18 22:36 Dose: 5 mg - Objective Vital Signs: Vital Signs Temperature 36.8 C 01/16/18 14:18 Pulse Rate 72 01/16/18 14:18 Respiratory Rate 22 H 01/16/18 14:18 Blood Pressure 128/65 01/16/18 14:18 O2 Sat by Pulse Oximetry (%) 97 01/16/18 05:00 Constitutional: Yes: Well Nourished, No Distress, Calm Cardiovascular: Yes: Regular Rate and Rhythm. No: Gallop, Murmur, Rub Respiratory: Yes: Regular, CTA Bilaterally. No: Rales, Wheezes Gastrointestinal: Yes: Normal Bowel Sounds. No: Distention, Tenderness Extremities: Yes: WNL Edema: No Labs: CBC, BMP 01/15/18 06:00 01/15/18 06:00 INR, PTT INR 1.40 (0.83-1.09) H 01/15/18 06:00 Problem List - Problems (1) Afib Code(s): I48.91 - UNSPECIFIED ATRIAL FIBRILLATION (2) Anxiety about health Code(s): F41.8 - OTHER SPECIFIED ANXIETY DISORDERS (3) Sleep apnea Code(s): G47.30 - SLEEP APNEA, UNSPECIFIED (4) Fatigue Code(s): R53.83 - OTHER FATIGUE (5) HLD (hyperlipidemia) Code(s): E78.5 - HYPERLIPIDEMIA, UNSPECIFIED Assessment/Plan -no new complaints from last admission -does not have pneumonia -appreciate ID assistance -continue medication regimen without change -appreciate psychiatry assistance -PT consulted -SW made aware for discharge planning
--- NOTE | 2018-01-16 16:14 | DS ---
Physical Examination Vital Signs: Vital Signs Temperature 36.8 C 01/16/18 14:18 Pulse Rate 72 01/16/18 14:18 Respiratory Rate 22 H 01/16/18 14:18 Blood Pressure 128/65 01/16/18 14:18 O2 Sat by Pulse Oximetry (%) 97 01/16/18 05:00 Constitutional: Yes: Well Nourished, No Distress, Calm Cardiovascular: Yes: Regular Rate and Rhythm. No: Gallop, Murmur, Rub Respiratory: Yes: Regular, CTA Bilaterally. No: Rales, Rhonchi, Wheezes Gastrointestinal: Yes: Normal Bowel Sounds, Soft. No: Distention, Tenderness Extremities: Yes: WNL Edema: No Labs: CBC, BMP 01/15/18 06:00 01/15/18 06:00 Discharge Summary Reason For Visit: PNEUMONIA Current Active Problems Afib (Acute) Anxiety about health (Acute) Cough (Acute) Penicillin allergy (Acute) Pneumonia (Acute) Sleep apnea (Acute) Hospital Course: Mr Freedman is an 87 year old male who was admitted under observation for concern for pneumonia. He was originally started on levaquin but showed no signs of pneumonia. ID evaluated patient and stopped antibiotics. Patient was unchanged from previous discharge. He was continued on his same medications without change. He was seen by PT. He is safe for discharge to SNF. Condition: Stable - Instructions Diet, Activity, Other Instructions: resume previous diet and activity Referrals: Angelina Potter MD [Staff Physician] - Tia Richards MD [Primary Care Provider] - Disposition: HOME - Home Medications Comprehensive Discharge Medication List: Ambulatory Orders Apixaban [Eliquis -] 5 mg PO BID #60 tablet 01/07/18 Metoprolol Succinate [Toprol XL -] 50 mg PO UTDICT #90 tab.sr.24h 01/07/18 Mirtazapine [Remeron -] 7.5 mg PO HS #30 tablet 01/07/18 Rosuvastatin [Crestor -] 5 mg PO HS #30 tablet 01/07/18 Diltiazem Cd [Cardizem Cd -] 120 mg PO DAILY #30 cap.cd.24h 01/09/18
== END 2018-01-16 18:21 ==
LOC: JER 19:45 → JERBED 01-15 00:16 → J5S 01-15 07:30
PROVIDERS: ADMIT Internal Medicine; ATTEND Internal Medicine
PROC: 3E03329 Introduction of Other Anti-infective into Peripheral Vein, Percutaneous Approach (ICD-10-PCS; principal; 2018-01-15)
PROC: 3E0337Z Introduction of Electrolytic and Water Balance Substance into Peripheral Vein, Percutaneous Approach (ICD-10-PCS; 2018-01-15)
PROC: 3E0F7GC Introduction of Other Therapeutic Substance into Respiratory Tract, Via Natural or Artificial Opening (ICD-10-PCS; 2018-01-15)
DX: J18.9 Pneumonia, unspecified organism (principal); E78.5 Hyperlipidemia, unspecified; I48.91 Unspecified atrial fibrillation; F33.1 Major depressive disorder, recurrent, moderate; F41.8 Other specified anxiety disorders; K21.9 Gastro-esophageal reflux disease without esophagitis; R00.1 Bradycardia, unspecified; R63.4 Abnormal weight loss; Z68.27 Body mass index [BMI] 27.0-27.9, adult; G47.30 Sleep apnea, unspecified; R05 Cough; Z79.01 Long term (current) use of anticoagulants; Z88.0 Allergy status to penicillin
CPT/HCPCS: 36415; 71045-TC-FY; 80048; 80053; 81003; 82803; 83605; 83735; 83880; 84100; 84484; 85025; 85610; 85730; 87040; 87086; 87804; 93005; 93010; 94640; 96361; 96365; 96366; 97116-GP; 97161-GP; 99285-25; G0378; J7030

== ENCOUNTER 2018-01-19 11:13 | Observation (INO) | payer OTHER, BC ==
--- NOTE | 2018-01-19 12:41 | PDOC ---
Attending Attestation - HPI HPI: 01/19/18 13:47 The patient is a 87 year old male, with a significant PMH of atrial fibrillation (on Eliquis, Toprol, Diltiazem), sleep apnea on CPAP, lyme disease , hyperlipidemia, and depression who presents to the emergency department with 3 months of worsening weakness and a syncopal episode earlier today while at physical therapy. The patient endorses feeling tired prior to the syncopal episode this morning and recalls waking up on the floor to PT staff members. PT staff denies any falls, trauma or headstrike/head injury. The staff reports the patient had an episode of bowel and bladder incontinence secondary to the syncopal episode. Staff reports the patient was also noted to be in rapid atrial fibrillation after the episode. The patient denies chest pain, shortness of breath, headache and dizziness. Denies any neck or back pain. Denies any numbness, weakness or loss of sensation. Denies fever, chills, nausea, vomit, diarrhea and constipation. Denies dysuria, frequency, urgency and hematuria. Allergies: Penicillin PCP: Dr Desir Documentation prepared by Tommy Maldonado, acting as medical clerk for Francie Caldwell MD. <Tommy Maldonado - Last Filed: 01/19/18 13:47> - Resident Resident Name: Leanne Bartlett - ED Attending Attestation I have performed the following: I have examined & evaluated the patient, The case was reviewed & discussed with the resident, I agree w/resident's findings & plan, Exceptions are as noted - Physicial Exam PE: GENERAL: Awake, alert, and fully oriented, in no acute distress HEAD: No signs of trauma EYES: PERRLA, EOMI, sclera anicteric, conjunctiva clear ENT: Auricles normal inspection, hearing grossly normal, nares patent, oropharynx clear without exudates. Moist mucosa NECK: Normal ROM, supple, no lymphadenopathy, JVD, or masses LUNGS: Breath sounds equal, clear to auscultation bilaterally. No wheezes, and no crackles HEART: Irregularly irregular, normal S1 and S2, no murmurs, rubs or gallops ABDOMEN: Soft, nontender, normoactive bowel sounds. No guarding, no rebound. No masses EXTREMITIES: Normal range of motion, no edema. No clubbing or cyanosis. No cords, erythema, or tenderness NEUROLOGICAL: Cranial nerves II through XII grossly intact. Normal speech. Motor and sensation intact. SKIN: Warm, Dry, normal turgor, no rashes or lesions noted. - Medical Decision Making Pt with multiple comorbidities presenting with syncopal event, no preceding cp/ SOB. Will admit based on multiple medical issues. <Francie Caldwell - Last Filed: 01/22/18 08:03>
--- NOTE | 2018-01-19 13:05 | PDOC ---
History of Present Illness - General History Source: Patient, EMS Exam Limitations: No Limitations - History of Present Illness Initial Comments: 01/19/18 12:51 This is an 87 YOM with h/o afib (on Eliquis, Toprol, diltiazem), sleep apnea on CPAP, lyme disease, HLD (on Crestor), and depression who p/w weakness worsening for several months, and syncopal episode reported by his SNF today while in physical therapy. The patient recalls feeling very tired during his PT appointment this morning while they were having him do exercised, and stated he wanted to go up to his room to sleep. The next thing he remembers is awakening with SNF staff members trying to help him up. Staff members denied any trauma or fall, patient denies any headache, or neck pain or other pain. Staff members noted that he was in rapid A-fib at the time his vitals were taken after the episode, and he had a coinciding episode of incontinence at that time (bowel and bladder). His pulse oxygenation was 96% on RA at this time, BP was 110/70. First reported HR was 76. The patient denies any headache, lightheadedness, dizziness, neck pain, chest pain, abdominal pain, SOB, palpitations, dysuria, f/ c/n/v/d/c, black/bloody stool, or other symptoms. His PCP is Dr. Brody. 01/19/18 13:16 On review of SNF records he was seen in consultation by Cardiology on 01/17/18 for A-fib, had ventricular rate 43 at that time, and low BP (though value not recorded on this paperwork). They recommended that his metoprolol dose decreased to 5 mg/day instead of 7.5 mg/day. <Leanne Bartlett - Last Filed: 01/19/18 12:51> <Francie Caldwell - Last Filed: 01/19/18 14:54> - General Chief Complaint: SIRS, Suspected/Possible Stated Complaint: Syncope/Near Syncope Time Seen by Provider: 01/19/18 11:58 Past History - Past Medical History Cardiac Disorders: Yes (AFIB) COPD: No GI Disorders: Yes (GERD) Hypercholesterolemia: Yes - Surgical History Orthopedic Surgery: Yes (RIGHT SHOULDER SX WITH TITANIUM TAMIE) - Suicide/Smoking/Psychosocial Hx Smoking History: Never smoked Hx Alcohol Use: No Drug/Substance Use Hx: No Substance Use Type: None Hx Substance Use Treatment: No <Leanne Bartlett - Last Filed: 01/19/18 12:51> <Corby Caldwellth - Last Filed: 01/19/18 14:54> - Past Medical History Allergies/Adverse Reactions: Allergies Allergy/AdvReac Type Severity Reaction Status Date / Time Penicillins Allergy Severe throat Verified 01/19/18 11:37 swelling Home Medications: Ambulatory Orders Apixaban [Eliquis -] 5 mg PO BID #60 tablet 01/07/18 Mirtazapine [Remeron -] 7.5 mg PO HS #30 tablet 01/07/18 Rosuvastatin [Crestor -] 5 mg PO HS #30 tablet 01/07/18 Diltiazem Cd [Cardizem Cd -] 120 mg PO DAILY #30 cap.cd.24h 01/09/18 Acetaminophen 325 mg PO Q4HWA 01/19/18 Calcium Carbonate/Vitamin D3 [Calcium 600 + Vit D 200 Tablet] 1 each PO Fluticasone Propionate [Flovent Diskus] 50 mcg IH DAILY 01/19/18 Metoprolol Succinate [Toprol XL -] 50 mg PO DAILY 01/19/18 Metoprolol Succinate [Toprol Xl] 50 mg PO DAILY 01/19/18 Review of Systems - Review of Systems Able to Perform ROS?: Yes Constitutional: Yes: Weakness, Other (tiredness). No: Chills, Fever, Unexplained wgt Loss HEENTM: No: Nose Congestion, Throat Pain Respiratory: No: Cough, Shortness of Breath Cardiac (ROS): No: Chest Pain, Palpitations ABD/GI: No: Constipated, Diarrhea, Nausea, Vomiting : No: Burning, Dysuria Musculoskeletal: No: Back Pain, Neck Pain Integumentary: No: Bruising, Rash Neurological: No: Headache, Numbness, Tingling, Weakness, Dizziness Endocrine: No: Unexplained Weight Gain, Unexplained Weight Loss <Leanne Bartlett - Last Filed: 01/19/18 12:51> *Physical Exam - Vital Signs Last Vital Signs Temp Pulse Resp BP Pulse Ox 98.7 F 72 22 H 105/64 96 01/19/18 11:30 01/19/18 11:30 01/19/18 11:30 01/19/18 11:30 01/19/18 11:30 01/19/18 13:05 GENERAL: nontoxic and well-appearing, very pleasant elderly male, nourished, A/ Ox4, no acute distress, speaking in full sentences, answers questions appropriately, making jokes HEENT: PERRLA, EOMI, moist mucous membranes, no posterior pharyngeal erythema, no tonsillar swelling or exudates, no cervical lymphadenopathy NECK: No midline ttp, no spinal stepoff or deformity, full ROM, supple CARDIOVASCULAR: Irregularly irregular, not tachycardic or bradycardic, normal S1S2, no MGR, radial and DP pulses 2+ and symmetric, capillary refill <2 seconds , extremities warm and well-perfused Chest wall: Normal appearance, no rash, no bruising, no costal stepoff or deformity, nontender to compression LUNGS/RESPIRATORY: No respiratory distress, normal and symmetric chest movements during respirations, lungs CTA bilaterally, equal breath sounds, no cyanosis, no nail clubbing GI/ABDOMEN: Normal symmetric appearance, normoactive bowel sounds, soft, no tenderness to palpation, no midline pulsatile masses, no palpated organomegaly : No CVA tenderness BACK: No midline ttp or stepoff or deformity of thoracic or lumbar spine EXTREMITIES: distal pulses 2+, warm and well-perfused, no LE edema SKIN: Warm and dry, no pallor, no jaundice, no bruising, no rash, no skin breakdown, no cuts, no lesions NEUROLOGICAL: GCS 15, CN II-XII grossly intact, gait not tested, moving all extremities, 5/5 strength proximally and distally, no facial droop, no decreased sensation <Leanne Bartlett - Last Filed: 01/19/18 12:51> - Vital Signs Last Vital Signs Temp Pulse Resp BP Pulse Ox 98.7 F 71 20 102/70 99 01/19/18 11:30 01/19/18 13:00 01/19/18 13:00 01/19/18 13:00 01/19/18 13:00 <Francie Caldwell - Last Filed: 01/19/18 14:54> Heart Score/ECG Review #1 01/19/18 11:59 AFL with variable conduction (4:1 to 8:1) with average ventricular rate of 54, normal axis, no ischemic ST-T changes <Leanne Bartlett - Last Filed: 01/19/18 12:51> ED Treatment Course - LABORATORY CBC & Chemistry Diagram: 01/19/18 12:39 01/19/18 12:39 - ADDITIONAL ORDERS Additional order review: Laboratory Results 01/19/18 01/19/18 01/19/18 12:39 12:39 12:39 PT with INR INR PTT (Actin FS) VBG pH 7.38 POC VBG pCO2 49.5 POC VBG pO2 26.5 L Mixed VBG HCO3 28.6 H Sodium 140 Potassium 4.1 Chloride 105 Carbon Dioxide 29 Anion Gap 6 L BUN 18 Creatinine 1.0 Creat Clearance w eGFR > 60 Random Glucose 126 H Lactic Acid 1.5 Calcium 8.8 Total Bilirubin 0.7 AST 15 ALT 33 Alkaline Phosphatase 57 Total Protein 6.2 L Albumin 3.0 L 01/19/18 12:39 PT with INR 18.30 H INR 1.54 H PTT (Actin FS) 29.7 VBG pH POC VBG pCO2 POC VBG pO2 Mixed VBG HCO3 Sodium Potassium Chloride Carbon Dioxide Anion Gap BUN Creatinine Creat Clearance w eGFR Random Glucose Lactic Acid Calcium Total Bilirubin AST ALT Alkaline Phosphatase Total Protein Albumin 01/19/18 12:39 RBC 4.38 MCV 93.6 MCHC 33.9 RDW 13.5 MPV 8.5 Neutrophils % 75.8 Lymphocytes % 13.9 Monocytes % 8.4 D Eosinophils % 1.7 D Basophils % 0.2 - RADIOLOGY Radiology Studies Ordered: Category Date Time Status CHEST X-RAY PORTABLE* [RAD] Stat Radiology 01/19/18 12:27 Completed <Francie Caldwell - Last Filed: 01/19/18 14:54> Medical Decision Making - Medical Decision Making 01/19/18 13:15 Syncope: Elderly Pt p/w abrupt transient LOC with loss of postural tone, followed by spontaneous recovery, consistent with syncope. Initial Vital Signs Temp Pulse Resp BP Pulse Ox 98.7 F 71 22 H 105/64 92 L 01/19/18 11:30 01/19/18 11:30 01/19/18 11:30 01/19/18 11:30 01/19/18 11:30 Exam: As noted in Physical Exam section. DDX IBNLT: reflex (neurocardiogenic e.g. vasovagal; situational e.g. micturition /post-tussive/post-exercise; carotid sinus hypersensitivity), cardiovascular ( arrhythmia e.g. sick sinus syndrome, conduction abnormality e.g. SVT/WPW/Brugada /long QT/ventricular dysrhythmia, structural heart disease e.g. valvular disease /HOCM/left atrial myxoma/CT; PE; cardiac tamponade), orthostatic hypotension ( volume depletion e.g. hemorrhage/vomiting/diarrhea/diuretics; drugs e.g. vasodilators/qfecc-4-fetxombp/clonidine/phenothiazines like Haldol; autonomic failure e.g. spinal cord injury/DM neuropathy/Parkinsons), or other causes not true syncope d/t subsequent neuro deficit (TIA/CVA, SAH, seizure, metabolic/ electrolyte derangement e.g. DM/DKA tend to cause gradual slide into unconsciousness), , infection/sepsis/vitals abnormalities, etc. W/U ordered: EKG CXR Head CT CBCD CMP Mg Phos Cardiac Panel UA UCx FOBT TX ordered: IVF, O2, monitor EKG: Reviewed; results as noted in ECG Review section. CXR: Labs: Reassessment: Repeat VS: ADMIT Per [place] Syncope Rule: Pt is high risk for ventricular dysrhythmia and/ or . Pt also reports XXXX exertional syncope and XXXX sudden in a relative. Pt also at higher risk given their older age and comorbidities. The Pt is unsafe for discharge at this time. They require further hospital observation, workup, and treatment. Microblog sent to [facility] for admission.Blank Decision to Admit order is placed per ED protocol. Spoke with admitting team provider relations representative, in agreement Pt to be admitted.Decision to Admit order corrected with admitting team covering attendings name. Decision to Admit order placed to admitting team covering attending. Consult placed to on-call tourist information assistant. <Leanne Bartlett - Last Filed: 01/19/18 12:51> *DC/Admit/Observation/Transfer <Leanne Bartlett - Last Filed: 01/19/18 12:51> - Discharge Dispostion Decision to Admit order: Yes <Francie Caldwell - Last Filed: 01/19/18 14:54> Diagnosis at time of Disposition: Syncope - Discharge Dispostion Condition at time of disposition: Stable - Referrals Referrals: Maxx Desir MD [Primary Care Provider] - - Patient Instructions - Post Discharge Activity
[2018-01-19 13:22] LABS: VENOUS PC02 49.5 mmHg (38-52); VENOUS PH 7.38 (7.32-7.42); VENOUS PO2 26.5 mmHg (28-48)
[2018-01-19 13:25] LABS: BASO % 0.2 % (0-2.0); EOS % 1.7 % (0-4.5); HEMOGLOBIN 13.9 GM/dL (11.7-16.9); LYMPH % 13.9 % (8-40); MCH 31.7 pg (25.7-33.7); MCHC 33.9 g/dl (32.0-35.9); MEAN CELL VOLUME 93.6 fl (80-96); MEAN PLT VOLUME 8.5 fl (7.5-11.1); MONO % 8.4 % (3.8-10.2); NEUT % 75.8 % (42.8-82.8); PLATELET COUNT 289 K/MM3 (134-434); RBC 4.38 M/mm3 (4.00-5.60); RDW 13.5 % (11.9-15.9); WHITE BLOOD COUNT 10.7 K/mm3 (4.0-10.0)
[2018-01-19 13:43] LABS: INR 1.54 (0.83-1.09); PROTHROMBIN TIME (PATIENT) 18.3 SEC (9.7-13.0)
[2018-01-19 13:46] LABS: ACTIVATED PTT 29.7 SECONDS (25.2-36.5)
[2018-01-19 13:58] LABS: ALK PHOS 57 U/L (45-117); ANION GAP 6 MMOL/L (8-16); BILIRUBIN,TOTAL 0.7 mg/dL (0.2-1); BLOOD UREA NITROGEN 18 mg/dL (7-18); CALCIUM 8.8 mg/dL (8.5-10.1); CHLORIDE 105 mmol/L (98-107); CO2 29 mmol/L (21-32); GLUCOSE,RANDOM 126 mg/dL (74-106); POTASSIUM 4.1 mmol/L (3.5-5.1); SGOT/AST 15 U/L (15-37); SGPT/ALT 33 U/L (13-61); SODIUM 140 mmol/L (136-145); TOT PROT 6.2 g/dl (6.4-8.2)
[2018-01-19 14:54] LABS: URINE APPEARANCE CLEAR; URINE BILIRUBIN NEGATIVE (<2.0 mg/dL); URINE COLOR YELLOW; URINE GLUCOSE (UA) NEGATIVE (NEGATIVE); URINE KETONE NEGATIVE (NEGATIVE); URINE LEUK ESTERASE NEGATIVE (NEGATIVE); URINE NITRITE NEGATIVE (NEGATIVE); URINE PROTEIN NEGATIVE (NEGATIVE); URINE UROBILINOGEN NEGATIVE mg/dL (0.2-1.0)
[2018-01-19] MEDS ORDERED: ONDANSETRON 4 MG/2 ML VIAL IVPUSH PRN (15:22)
[2018-01-19] MEDS ORDERED: ACETAMINOPHEN 325 MG TABLET (FP) PO PRN (15:22)
--- NOTE | 2018-01-19 16:40 | HP ---
Admitting History and Physical - Primary Care Physician PCP: Tia Richards - Admission Chief Complaint: I'm fatigued History of Present Illness: Mr Freedman is a pleasant 87 year old male who presented to the hospital with an episode of syncope. He was at the SNF and was feeling weak. He says he was feeling weak this morning and he did not eat breakfast this morning. However he went to and during there he began to feel tired. He sat down and closed his eyes, and then the next thing he knows he is surrounded by people. He does not recall passing out. Aside from the fatigue he is otherwise without complaint. He denies fevers, chills, lightheadedness, dizziness, chest pain or pressure, shortness of breath, nausea, vomiting, diarrhea, constipation, difficulty or pain on urination, or swelling. 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 History of Recent Travel: No Home Medications - Allergies Allergies/Adverse Reactions: Allergies Allergy/AdvReac Type Severity Reaction Status Date / Time Penicillins Allergy Severe throat Verified 01/19/18 11:37 swelling - Home Medications Home Medications: Ambulatory Orders Apixaban [Eliquis -] 5 mg PO BID #60 tablet 01/07/18 Mirtazapine [Remeron -] 7.5 mg PO HS #30 tablet 01/07/18 Rosuvastatin [Crestor -] 5 mg PO HS #30 tablet 01/07/18 Diltiazem Cd [Cardizem Cd -] 120 mg PO DAILY #30 cap.cd.24h 01/09/18 Acetaminophen 325 mg PO Q4HWA 01/19/18 Calcium Carbonate/Vitamin D3 [Calcium 600 + Vit D 200 Tablet] 1 each PO Fluticasone Propionate [Flovent Diskus] 50 mcg IH DAILY 01/19/18 Metoprolol Succinate [Toprol XL -] 50 mg PO DAILY 01/19/18 Metoprolol Succinate [Toprol Xl] 50 mg PO DAILY 01/19/18 Family Disease History - Family Disease History Family History: Unremarkable Review of Systems Findings/Remarks: Full review of systems obtained, as per HPI and otherwise negative Physical Examination Vital Signs: Vital Signs Temperature 37.1 C 01/19/18 11:30 Pulse Rate 71 01/19/18 13:00 Respiratory Rate 20 01/19/18 13:00 Blood Pressure 102/70 01/19/18 13:00 O2 Sat by Pulse Oximetry (%) 98 01/19/18 15:54 Constitutional: Yes: Well Nourished, No Distress, Calm Eyes: Yes: Conjunctiva Clear, EOM Intact, PERRL HENT: Yes: Atraumatic, Normocephalic Cardiovascular: Yes: Pulse Irregular. No: Regular Rate and Rhythm, Tachycardia , Gallop, Murmur, Rub Respiratory: Yes: Regular, CTA Bilaterally. No: Rales, Rhonchi, Wheezes Gastrointestinal: Yes: Normal Bowel Sounds, Soft. No: Distention, Tenderness Extremities: Yes: WNL Edema: No Labs: CBC, BMP 01/19/18 12:39 01/19/18 12:39 Imaging - Results Chest X-ray: Report Reviewed, Image Reviewed Problem List - Problems (1) Syncope Assessment/Plan: -per [place], patient was in rvr during syncopal episode -recent ECHO and carotid ultrasound, no need to repeat -cardiac enzymes x3 -cardiology consult -PT and fall risk precautions Code(s): R55 - SYNCOPE AND COLLAPSE (2) Afib Assessment/Plan: -currently rate controlled -continue toprol xl, diltiazem, and eliquis -cardiology to evaluate Code(s): I48.91 - UNSPECIFIED ATRIAL FIBRILLATION Qualifiers: Atrial fibrillation type: chronic Qualified Code(s): I48.2 - Chronic atrial fibrillation (3) Fatigue Assessment/Plan: -chronic -monitor Code(s): R53.83 - OTHER FATIGUE (4) HLD (hyperlipidemia) Assessment/Plan: -continue statin Code(s): E78.5 - HYPERLIPIDEMIA, UNSPECIFIED (5) Sleep apnea Assessment/Plan: -monitor Code(s): G47.30 - SLEEP APNEA, UNSPECIFIED
[2018-01-19] MEDS: APIXABAN 5 MG TABLET PO SCH (21:34)
[2018-01-19] MEDS: MIRTAZAPINE 15 MG TABLET (FP) PO SCH (21:34)
[2018-01-19] MEDS: ROSUVASTATIN CA 5 MG TABLET (FP) PO SCH (21:35)
[2018-01-19] MEDS: MOMETASONE FUROATE 220 MCG/IH INHALER IH SCH (21:35)
[2018-01-19 22:40] VITALS: BMI 25.7
[2018-01-20 06:28] LABS: BASO % 0.4 % (0-2.0); EOS % 2.4 % (0-4.5); HEMATOCRIT 38.8 % (35.4-49); HEMOGLOBIN 12.9 GM/dL (11.7-16.9); MCH 31.3 pg (25.7-33.7); MCHC 33.3 g/dl (32.0-35.9); MEAN PLT VOLUME 8.3 fl (7.5-11.1); NEUT % 67.2 % (42.8-82.8); PLATELET COUNT 232 K/MM3 (134-434); RBC 4.13 M/mm3 (4.00-5.60); RDW 13.5 % (11.9-15.9); WHITE BLOOD COUNT 9.9 K/mm3 (4.0-10.0)
--- NOTE | 2018-01-20 09:04 | EKG ---
Test Reason : Blood Pressure : / mmHG Vent. Rate : 054 BPM Atrial Rate : 288 BPM P-R Int : 000 ms QRS Dur : 056 ms QT Int : 424 ms P-R-T Axes : 000 -17 -40 degrees QTc Int : 402 ms POOR DATA QUALITY, INTERPRETATION MAY BE ADVERSELY AFFECTED ATRIAL FLUTTER WITH VARIABLE A-V BLOCK ABNORMAL ECG WHEN COMPARED WITH ECG OF 14-JAN-2018 23:44, ATRIAL FLUTTER HAS REPLACED ATRIAL FIBRILLATION VENT. RATE HAS DECREASED BY 44 BPM QRS DURATION HAS DECREASED NONSPECIFIC T WAVE ABNORMALITY NOW EVIDENT IN INFERIOR LEADS QT HAS SHORTENED Confirmed by KAREN VALENZUELA MD ([id number]) on 01/20/2018 9:03:54 AM Referred By: Confirmed By:KAREN VALENZUELA MD
[2018-01-20] MEDS ORDERED: FLU VACCINE QUAD 60 MCG/0.5 ML (MDV 18-19) IM ONE (10:00)
[2018-01-20 10:14] LABS: ANION GAP 9 MMOL/L (8-16); BLOOD UREA NITROGEN 14 mg/dL (7-18); CALCIUM 8.4 mg/dL (8.5-10.1); CHLORIDE 110 mmol/L (98-107); CO2 25 mmol/L (21-32); CREATININE 0.8 mg/dL (0.55-1.3); GLUCOSE,RANDOM 97 mg/dL (74-106); MAGNESIUM 2.1 mg/dL (1.8-2.4); PHOSPHOROUS 3.1 mg/dL (2.5-4.9); POTASSIUM 3.9 mmol/L (3.5-5.1); SODIUM 143 mmol/L (136-145)
[2018-01-20] MEDS: APIXABAN 5 MG TABLET PO SCH ×2 (10:29→21:49)
--- NOTE | 2018-01-20 11:24 | CON.CARD ---
Cardiology Consult (text) - Consultation Consultation Note: Chief Complaint: syncope History of Present Illness: 87M h/o FLASH, lyme disease, HLD, depression, afib, here s/p syncope. Pt did not eat then went for PT at SNF and felt weak and sat down and next remembers being surrounded by staff. No cp sob palps pnd orthopnea le edema. Patient sees Dr. Zhao for cardiology. - Alcohol/Substance Use Hx Alcohol Use: No - Smoking History Smoking history: Never smoked Home Medications - Allergies Allergies/Adverse Reactions: Allergies Allergy/AdvReac Type Severity Reaction Status Date / Time Penicillins Allergy Severe throat Verified 01/19/18 11:37 swelling - Home Medications Home Medications Medication Instructions Recorded Apixaban [Eliquis -] 5 mg PO BID #60 tablet 01/07/18 Mirtazapine [Remeron -] 7.5 mg PO HS #30 tablet 01/07/18 Rosuvastatin [Crestor -] 5 mg PO HS #30 tablet 01/07/18 Diltiazem Cd [Cardizem Cd -] 120 mg PO DAILY #30 cap.cd.24h 01/09/18 Acetaminophen 325 mg PO Q4HWA 01/19/18 Calcium Carbonate/Vitamin D3 1 each PO 01/19/18 [Calcium 600 + Vit D 200 Tablet] Fluticasone Propionate [Flovent 50 mcg IH DAILY 01/19/18 Diskus] Metoprolol Succinate [Toprol XL -] 50 mg PO DAILY 01/19/18 Metoprolol Succinate [Toprol Xl] 50 mg PO DAILY 01/19/18 Family Disease History - Family Disease History Family History: Unremarkable Review of Systems - Review of Systems Constitutional: reports: Fever, Lethargy, Weakness Eyes: reports: No Symptoms HENT: reports: No Symptoms Neck: reports: No Symptoms Cardiovascular: reports: No Symptoms Respiratory: reports: No Symptoms Gastrointestinal: reports: No Symptoms Genitourinary: reports: No Symptoms Musculoskeletal: reports: No Symptoms Integumentary: reports: No Symptoms Endocrine: reports: No Symptoms Hematology/Lymphatic: reports: No Symptoms Psychiatric: reports: No Symptoms Vital Signs: Vital Signs Period Temp Pulse Resp BP Sys/Cardenas Pulse Ox Last 24 Hr 98.1 F-99.1 F 60-132 20-22 96-124/57-76 92-100 Constitutional: Yes: Well Nourished, No Distress, Calm Eyes: Yes: Conjunctiva Clear HENT: Yes: Atraumatic, Normocephalic Neck: Yes: Supple, Trachea Midline Respiratory: Yes: Regular, CTA Bilaterally Gastrointestinal: Yes: Normal Bowel Sounds, Soft Cardiovascular: Yes: Pulse Irregular, tachy JVD: No Heart Sounds: Yes: S1, S2 Edema: No Peripheral Pulses: 2+ Left Doralis Pedis, 2+ Right Dorsalis Pedis Neurological: Yes: Alert, Oriented Psychiatric: Yes: Alert, Oriented no jaundice diaphoresis - Other Data Labs, Other Data: Laboratory Last Values WBC 9.9 K/mm3 (4.0-10.0) 01/20/18 05:30 RBC 4.13 M/mm3 (4.00-5.60) 01/20/18 05:30 Hgb 12.9 GM/dL (11.7-16.9) 01/20/18 05:30 Hct 38.8 % (35.4-49) 01/20/18 05:30 MCV 94.0 fl (80-96) 01/20/18 05:30 MCH 31.3 pg (25.7-33.7) 01/20/18 05:30 MCHC 33.3 g/dl (32.0-35.9) 01/20/18 05:30 RDW 13.5 % (11.9-15.9) 01/20/18 05:30 Plt Count 232 K/MM3 (134-434) 01/20/18 05:30 MPV 8.3 fl (7.5-11.1) 01/20/18 05:30 Absolute Neuts (auto) 6.6 K/mm3 (1.5-8.0) 01/20/18 05:30 Neutrophils % 67.2 % (42.8-82.8) 01/20/18 05:30 Lymphocytes % 21.0 % (8-40) D 01/20/18 05:30 Monocytes % 9.0 % (3.8-10.2) 01/20/18 05:30 Eosinophils % 2.4 % (0-4.5) 01/20/18 05:30 Basophils % 0.4 % (0-2.0) 01/20/18 05:30 Nucleated RBC % 0 % (0-0) 01/20/18 05:30 PT with INR 18.30 SEC (9.7-13.0) H 01/19/18 12:39 INR 1.54 (0.83-1.09) H 01/19/18 12:39 PTT (Actin FS) 29.7 SECONDS (25.2-36.5) 01/19/18 12:39 VBG pH 7.38 (7.32-7.42) 01/19/18 12:39 POC VBG pCO2 49.5 mmHg (38-52) 01/19/18 12:39 POC VBG pO2 26.5 mmHg (28-48) L 01/19/18 12:39 Mixed VBG HCO3 28.6 meq/L (19-25) H 01/19/18 12:39 Sodium 143 mmol/L (136-145) 01/20/18 05:30 Potassium 3.9 mmol/L (3.5-5.1) 01/20/18 05:30 Chloride 110 mmol/L (98-107) H 01/20/18 05:30 Carbon Dioxide 25 mmol/L (21-32) 01/20/18 05:30 Anion Gap 9 MMOL/L (8-16) 01/20/18 05:30 BUN 14 mg/dL (7-18) 01/20/18 05:30 Creatinine 0.8 mg/dL (0.55-1.3) 01/20/18 05:30 Creat Clearance w eGFR > 60 (>60) 01/20/18 05:30 Random Glucose 97 mg/dL (74-106) 01/20/18 05:30 Lactic Acid 1.5 mmol/L (0.4-2.0) 01/19/18 12:39 Calcium 8.4 mg/dL (8.5-10.1) L 01/20/18 05:30 Phosphorus 3.1 mg/dL (2.5-4.9) 01/20/18 05:30 Magnesium 2.1 mg/dL (1.8-2.4) 01/20/18 05:30 Total Bilirubin 0.7 mg/dL (0.2-1) 01/19/18 12:39 AST 15 U/L (15-37) 01/19/18 12:39 ALT 33 U/L (13-61) 01/19/18 12:39 Alkaline Phosphatase 57 U/L (45-117) 01/19/18 12:39 Creatine Kinase 23 IU/L (26-308) L 01/20/18 05:30 Troponin I 0.02 ng/ml (0.00-0.05) 01/20/18 05:30 Total Protein 6.2 g/dl (6.4-8.2) L 01/19/18 12:39 Albumin 3.0 g/dl (3.4-5.0) L 01/19/18 12:39 Urine Color Yellow 01/19/18 14:20 Urine Appearance Clear 01/19/18 14:20 Urine pH 6.0 (5.0-8.0) 01/19/18 14:20 Ur Specific [place] 1.016 (1.010-1.035) 01/19/18 14:20 Urine Protein Negative (NEGATIVE) 01/19/18 14:20 Urine Glucose (UA) Negative (NEGATIVE) 01/19/18 14:20 Urine Ketones Negative (NEGATIVE) 01/19/18 14:20 Urine Blood Negative (NEGATIVE) 01/19/18 14:20 Urine Nitrite Negative (NEGATIVE) 01/19/18 14:20 Urine Bilirubin Negative (<2.0 mg/dL) 01/19/18 14:20 Urine Urobilinogen Negative mg/dL (0.2-1.0) 01/19/18 14:20 Ur Leukocyte Esterase Negative (NEGATIVE) 01/19/18 14:20 carotid dopplers: no hemodynamically significant stenosis Echo 01/2018 tds, nl LV size and function, cannot rule out WMA, RVSP >60 mmHg ekg: aflutter, rate controlled, no ischemic changes cxr: clear lungs tele: afib, rvr Assessment/Plan 87M h/o FLASH, lyme disease, HLD, depression, afib, here s/p syncope. syncope: -no signs acs, chf -ortho vs normal -recent echo and carotids w/o etiology -possibly vagal, possibly related to afib with rvr -rate control as below afib: -rvr here. will increase toprol and dilt, cont tele. -cont eliquis fatigue, somnolence: - chronic, unremitting sx for few months - lyme workup negative, d/w Dr. Richards fatigue chronic and likely new baseline. also has severe FLASH not complying with treatment - not AF sx, as pt was in sinus on presentation to ER here - had stress test with Dr. Zhao since symptoms developed which was unremarkable pulm HTN - RVSP >60 mmHg, RV not well visualized - advised patient to followup with Dr. Zhao for further work up HLD - continue crestor
[2018-01-20] MEDS ORDERED: dilTIAZem HCL 60 MG TABLET (FP) PO ONE (11:26)
[2018-01-20] MEDS ORDERED: METOPROLOL TARTRATE 5 MG/5 ML VIAL IVPUSH PRN (11:50)
--- NOTE | 2018-01-20 12:05 | PN ---
Progress Note, Physician Chief Complaint: feels comfortable History of Present Illness: 87 year old male who presented to the hospital with an episode of syncope. He was at the SNF and was feeling weak. He says he was feeling weak this morning and he did not eat breakfast this morning. However he went to and during there he began to feel tired. He sat down and closed his eyes, and then the next thing he knows he is surrounded by people - Current Medication List Current Medications: Active Medications Acetaminophen (Tylenol -) 650 mg PO Q4H PRN PRN Reason: FEVER Apixaban (Eliquis -) 5 mg PO BID [facility] Last Admin: 01/20/18 10:29 Dose: 5 mg Diltiazem HCl (Cardizem Cd -) 180 mg PO DAILY [facility] Metoprolol Succinate (Toprol Xl -) 50 mg PO BID [facility] Metoprolol Tartrate (Lopressor Injection -) 5 mg IVPUSH Q4H PRN PRN Reason: TACHYCARDIA Mirtazapine (Remeron -) 7.5 mg PO [facility] Last Admin: 01/19/18 21:34 Dose: 7.5 mg Mometasone Furoate (Asmanex 220mcg -) 1 puff IH [facility] Last Admin: 01/19/18 21:35 Dose: Not Given Ondansetron HCl (Zofran Injection) 4 mg IVPUSH Q6H PRN PRN Reason: NAUSEA Rosuvastatin Calcium (Crestor -) 5 mg PO [facility] Last Admin: 01/19/18 21:35 Dose: 5 mg - Objective Vital Signs: Vital Signs Temperature 98.9 F 01/20/18 06:00 Pulse Rate 118 H 01/20/18 10:20 Respiratory Rate 20 01/20/18 06:00 Blood Pressure 124/72 01/20/18 10:20 O2 Sat by Pulse Oximetry (%) 97 01/19/18 22:00 Constitutional: Yes: Well Nourished, No Distress HENT: Yes: Atraumatic, Normocephalic Neck: Yes: Supple, Trachea Midline. No: Decreased ROM, Lymphadenopathy Cardiovascular: Yes: Pulse Irregular, S1, S2. No: JVD, Gallop, Murmur Respiratory: Yes: Regular, CTA Bilaterally Gastrointestinal: Yes: Normal Bowel Sounds, Soft Edema: No Peripheral Pulses: Left Doralis Pedis: 1+, Right Dorsalis Pedis: 1+ Neurological: Yes: Alert, Oriented ...Motor Strength: LUE, LLE, RUE Labs: CBC, BMP 01/20/18 05:30 01/20/18 05:30 INR, PTT INR 1.54 (0.83-1.09) H 01/19/18 12:39 Problem List - Problems (1) Syncope Assessment/Plan: While exercising in the setting of Afib with RVR evaluated by cardiology consult optimizing HR control with B Blockers on AC Code(s): R55 - SYNCOPE AND COLLAPSE (2) Afib Assessment/Plan: Optimize B Blockers to HR controlled incresed Metoprolol 50 mg on AC F/U Cardiology recommondations. Code(s): I48.91 - UNSPECIFIED ATRIAL FIBRILLATION Qualifiers: Atrial fibrillation type: chronic Qualified Code(s): I48.2 - Chronic atrial fibrillation (3) Depression Assessment/Plan: STable comnt all home meds Code(s): F32.9 - MAJOR DEPRESSIVE DISORDER, SINGLE EPISODE, UNSPECIFIED Qualifiers: Depression Type: major depressive disorder Major depression recurrence: recurrent Active/Remission status: currently active Major depression episode severity: moderate Qualified Code(s): F33.1 - Major depressive disorder, recurrent, moderate (4) Fatigue Assessment/Plan: Chronic worked up no active issue Code(s): R53.83 - OTHER FATIGUE (5) HLD (hyperlipidemia) Assessment/Plan: Cont Statin Code(s): E78.5 - HYPERLIPIDEMIA, UNSPECIFIED (6) Pulmonary HTN Assessment/Plan: F/U with Dr Prince Code(s): I27.20 - PULMONARY HYPERTENSION, UNSPECIFIED
[2018-01-20] MEDS ORDERED: PT OWN MED DRAWER 7, Y5N ONE ×2 (21:34→23:08)
[2018-01-20] MEDS: MIRTAZAPINE 15 MG TABLET (FP) PO SCH (21:49)
[2018-01-20] MEDS: ROSUVASTATIN CA 5 MG TABLET (FP) PO SCH (21:49)
[2018-01-20] MEDS: MOMETASONE FUROATE 220 MCG/IH INHALER IH SCH (23:06)
[2018-01-21 06:34] LABS: BASO % 0.3 % (0-2.0); EOS % 3.2 % (0-4.5); HEMATOCRIT 37.6 % (35.4-49); HEMOGLOBIN 13.3 GM/dL (11.7-16.9); LYMPH % 24.1 % (8-40); MCHC 35.3 g/dl (32.0-35.9); MEAN CELL VOLUME 96.3 fl (80-96); MEAN PLT VOLUME 8.5 fl (7.5-11.1); MONO % 11.8 % (3.8-10.2); NEUT % 60.6 % (42.8-82.8); PLATELET COUNT 213 K/MM3 (134-434); RDW 13.9 % (11.9-15.9); WHITE BLOOD COUNT 8.9 K/mm3 (4.0-10.0)
[2018-01-21] MEDS ORDERED: PT OWN MED DRAWER 7, Y5N ONE ×3 (06:55→21:55)
[2018-01-21 07:02] LABS: ANION GAP 7 MMOL/L (8-16); BLOOD UREA NITROGEN 18 mg/dL (7-18); CALCIUM 8.4 mg/dL (8.5-10.1); CHLORIDE 108 mmol/L (98-107); CO2 26 mmol/L (21-32); CREATININE 0.9 mg/dL (0.55-1.3); GLUCOSE,RANDOM 98 mg/dL (74-106); SODIUM 141 mmol/L (136-145)
[2018-01-21] MEDS: APIXABAN 5 MG TABLET PO SCH ×2 (10:34→22:12)
--- NOTE | 2018-01-21 10:39 | PN ---
Progress Note (short form) - Note Progress Note: s: no cp sob palps dizzy o: Vital Signs Period Temp Pulse Resp BP Sys/Cardenas Pulse Ox Last 24 Hr 98.6 F-99.3 F 53-73 18-20 100-112/50-62 95-95 Constitutional: Yes: Well Nourished, No Distress, Calm Eyes: Yes: Conjunctiva Clear HENT: Yes: Atraumatic, Normocephalic Neck: Yes: Supple, Trachea Midline Respiratory: Yes: Regular, CTA Bilaterally Gastrointestinal: Yes: Normal Bowel Sounds, Soft Cardiovascular: Yes: rrr JVD: No Heart Sounds: Yes: S1, S2 Edema: No Neurological: Yes: Alert, Oriented Psychiatric: Yes: Alert, Oriented no jaundice diaphoresis Current Medications Generic Name Dose Route Start Last Admin Trade Name Freq PRN Reason Stop Dose Admin Acetaminophen 650 mg 01/19/18 15:22 Tylenol - PO Q4H PRN FEVER Apixaban 5 mg 01/19/18 22:00 01/21/18 10:34 Eliquis - PO 5 mg BID EDEL Administration Diltiazem HCl 180 mg 01/20/18 12:00 01/21/18 10:33 Cardizem Cd - PO 180 mg DAILY EDEL Administration Metoprolol Succinate 50 mg 01/20/18 22:00 01/21/18 10:34 Toprol Xl - PO 50 mg BID EDEL Administration Metoprolol Tartrate 5 mg 01/20/18 11:50 Lopressor Injection - IVPUSH Q4H PRN TACHYCARDIA Mirtazapine 7.5 mg 01/19/18 22:00 01/20/18 21:49 Remeron - PO 7.5 mg HS EDEL Administration Mometasone Furoate 1 puff 01/19/18 22:00 01/20/18 23:06 Asmanex 220mcg - IH 1 puff HS EDEL Administration Ondansetron HCl 4 mg 01/19/18 15:22 Zofran Injection IVPUSH Q6H PRN NAUSEA Rosuvastatin Calcium 5 mg 01/19/18 22:00 01/20/18 21:49 Crestor - PO 5 mg HS EDEL Administration - Other Data Labs, Other Data: CBC, BMP 01/21/18 05:30 01/21/18 05:30 carotid dopplers: no hemodynamically significant stenosis Echo 01/2018 tds, nl LV size and function, cannot rule out WMA, RVSP >60 mmHg ekg: aflutter, rate controlled, no ischemic changes cxr: clear lungs tele: sr Assessment/Plan 87M h/o FLASH, lyme disease, HLD, depression, afib, here s/p syncope. syncope: -no signs acs, chf -ortho vs normal -recent echo and carotids w/o etiology -possibly vagal, possibly related to afib with rvr -rate control as below afib: -rvr here--> increased toprol and dilt--> in sr now, cont same -cont eliquis fatigue, somnolence: - chronic, unremitting sx for few months - lyme workup negative, d/w Dr. Richards fatigue chronic and likely new baseline. also has severe FLASH not complying with treatment - not AF sx, as pt was in sinus on presentation to ER here - had stress test with Dr. Zhao since symptoms developed which was unremarkable - likely sxs due to depression/anxiety pulm HTN - RVSP >60 mmHg, RV not well visualized - advised patient to followup with Dr. Zhao for further work up HLD - continue crestor cardiac phillip stable for dc
--- NOTE | 2018-01-21 11:25 | PN ---
Progress Note, Physician Chief Complaint: feels comfortable History of Present Illness: 87 year old male who presented to the hospital with an episode of syncope. He was at the SNF and was feeling weak. He says he was feeling weak this morning and he did not eat breakfast this morning. However he went to and during there he began to feel tired. He sat down and closed his eyes, and then the next thing he knows he is surrounded by people - Current Medication List Current Medications: Active Medications Acetaminophen (Tylenol -) 650 mg PO Q4H PRN PRN Reason: FEVER Apixaban (Eliquis -) 5 mg PO BID [facility] Last Admin: 01/21/18 10:34 Dose: 5 mg Diltiazem HCl (Cardizem Cd -) 180 mg PO DAILY [facility] Last Admin: 01/21/18 10:33 Dose: 180 mg Metoprolol Succinate (Toprol Xl -) 50 mg PO BID [facility] Last Admin: 01/21/18 10:34 Dose: 50 mg Metoprolol Tartrate (Lopressor Injection -) 5 mg IVPUSH Q4H PRN PRN Reason: TACHYCARDIA Mirtazapine (Remeron -) 7.5 mg PO [facility] Last Admin: 01/20/18 21:49 Dose: 7.5 mg Mometasone Furoate (Asmanex 220mcg -) 1 puff IH [facility] Last Admin: 01/20/18 23:06 Dose: 1 puff Ondansetron HCl (Zofran Injection) 4 mg IVPUSH Q6H PRN PRN Reason: NAUSEA Rosuvastatin Calcium (Crestor -) 5 mg PO [facility] Last Admin: 01/20/18 21:49 Dose: 5 mg - Objective Vital Signs: Vital Signs Temperature 98.6 F 01/21/18 04:00 Pulse Rate 70 01/21/18 04:00 Respiratory Rate 20 01/21/18 05:53 Blood Pressure 112/53 L 01/21/18 04:00 O2 Sat by Pulse Oximetry (%) 95 01/21/18 05:53 Constitutional: Yes: Well Nourished, No Distress HENT: Yes: Atraumatic, Normocephalic Neck: Yes: Supple, Trachea Midline. No: Decreased ROM, Lymphadenopathy Cardiovascular: Yes: Pulse Irregular, S1, S2. No: JVD, Gallop, Murmur Respiratory: Yes: Regular, CTA Bilaterally Gastrointestinal: Yes: Normal Bowel Sounds, Soft Edema: No Peripheral Pulses: Left Doralis Pedis: 1+, Right Dorsalis Pedis: 1+ Neurological: Yes: Alert, Oriented ...Motor Strength: LUE, LLE, RUE Labs: CBC, BMP 01/21/18 05:30 01/21/18 05:30 INR, PTT INR 1.54 (0.83-1.09) H 01/19/18 12:39 Problem List - Problems (1) Syncope Assessment/Plan: While exercising in the setting of Afib with RVR evaluated by cardiology consult optimizing HR control with B Blockers on AC Code(s): R55 - SYNCOPE AND COLLAPSE (2) Afib Assessment/Plan: Optimized B Blockers to HR controlled increased Metoprolol 50 mg BID Diltizem ER 180 mg daily, on AC F/U Cardiology recommondations. Code(s): I48.91 - UNSPECIFIED ATRIAL FIBRILLATION Qualifiers: Atrial fibrillation type: chronic Qualified Code(s): I48.2 - Chronic atrial fibrillation (3) Depression Assessment/Plan: STable comnt all home meds Code(s): F32.9 - MAJOR DEPRESSIVE DISORDER, SINGLE EPISODE, UNSPECIFIED Qualifiers: Depression Type: major depressive disorder Major depression recurrence: recurrent Active/Remission status: currently active Major depression episode severity: moderate Qualified Code(s): F33.1 - Major depressive disorder, recurrent, moderate (4) Fatigue Assessment/Plan: Chronic worked up no active issue Code(s): R53.83 - OTHER FATIGUE (5) HLD (hyperlipidemia) Assessment/Plan: Cont Statin Code(s): E78.5 - HYPERLIPIDEMIA, UNSPECIFIED (6) Pulmonary HTN Assessment/Plan: F/U with Dr Prince Code(s): I27.20 - PULMONARY HYPERTENSION, UNSPECIFIED
[2018-01-21] MEDS ORDERED: BENZOCAINE/MENTH/CETYLPYRD CL 1 EACH LOZENGE MM PRN (21:37)
[2018-01-21] MEDS: MOMETASONE FUROATE 220 MCG/IH INHALER IH SCH (22:12)
[2018-01-21] MEDS: MIRTAZAPINE 15 MG TABLET (FP) PO SCH (22:12)
[2018-01-21] MEDS: ROSUVASTATIN CA 5 MG TABLET (FP) PO SCH (22:13)
[2018-01-22 06:05] LABS: BASO % 0.4 % (0-2.0); EOS % 3.8 % (0-4.5); HEMATOCRIT 37.6 % (35.4-49); HEMOGLOBIN 13.5 GM/dL (11.7-16.9); LYMPH % 26.2 % (8-40); MCH 34.5 pg (25.7-33.7); MCHC 35.8 g/dl (32.0-35.9); MEAN CELL VOLUME 96.5 fl (80-96); MEAN PLT VOLUME 8.5 fl (7.5-11.1); NEUT % 56.6 % (42.8-82.8); PLATELET COUNT 199 K/MM3 (134-434); RDW 14.3 % (11.9-15.9); WHITE BLOOD COUNT 8.4 K/mm3 (4.0-10.0)
[2018-01-22] MEDS ORDERED: PT OWN MED DRAWER 7, Y5N ONE ×2 (06:45→09:20)
[2018-01-22 07:44] LABS: ANION GAP 7 MMOL/L (8-16); BLOOD UREA NITROGEN 17 mg/dL (7-18); CALCIUM 8.4 mg/dL (8.5-10.1); CHLORIDE 107 mmol/L (98-107); CO2 26 mmol/L (21-32); CREATININE 0.9 mg/dL (0.55-1.3); GLUCOSE,RANDOM 101 mg/dL (74-106); SODIUM 140 mmol/L (136-145)
[2018-01-22] MEDS: APIXABAN 5 MG TABLET PO SCH (10:07)
--- NOTE | 2018-01-22 12:44 | DS ---
Physical Examination Vital Signs: Vital Signs Temperature 36.6 C 01/22/18 09:13 Pulse Rate 70 01/22/18 09:13 Respiratory Rate 18 01/22/18 09:13 Blood Pressure 111/72 01/22/18 09:13 O2 Sat by Pulse Oximetry (%) 95 01/22/18 05:32 Constitutional: Yes: Well Nourished, No Distress, Calm Cardiovascular: Yes: Regular Rate and Rhythm. No: Gallop, Murmur, Rub Respiratory: Yes: Regular, CTA Bilaterally. No: Rales, Rhonchi, Wheezes Gastrointestinal: Yes: Normal Bowel Sounds, Soft. No: Distention, Tenderness Extremities: Yes: WNL Edema: No Labs: CBC, BMP 01/22/18 05:30 01/22/18 05:30 Discharge Summary Reason For Visit: SYNCOPE Current Active Problems Pulmonary HTN (Acute) Syncope (Acute) Hospital Course: (1) Syncope Code(s): R55 - SYNCOPE AND COLLAPSE (2) Afib Code(s): I48.91 - UNSPECIFIED ATRIAL FIBRILLATION Qualifiers: Atrial fibrillation type: chronic Qualified Code(s): I48.2 - Chronic atrial fibrillation (3) Fatigue Code(s): R53.83 - OTHER FATIGUE (4) HLD (hyperlipidemia) Code(s): E78.5 - HYPERLIPIDEMIA, UNSPECIFIED (5) Sleep apnea Code(s): G47.30 - SLEEP APNEA, UNSPECIFIED Mr Freedman is an 87 year old male who was admitted for syncope. He was admitted to telemetry under observation. He recently had an ECHO and carotid dopplers performed, these were not repeated. Cardiology was consulted and his diltiazem and toprol was increased. He is currently doing well and is safe for discharge back to SNF. 31 minutes spent in preparation of this discharge Condition: Stable - Instructions Diet, Activity, Other Instructions: resume previous diet and activity Referrals: Maxx Desir MD [Primary Care Provider] - Franky Zhao MD [Staff Physician] - Disposition: [facility] - Home Medications Comprehensive Discharge Medication List: Ambulatory Orders Apixaban [Eliquis -] 5 mg PO BID #60 tablet 01/07/18 Mirtazapine [Remeron -] 7.5 mg PO HS #30 tablet 01/07/18 Rosuvastatin [Crestor -] 5 mg PO HS #30 tablet 01/07/18 Calcium Carbonate/Vitamin D3 [Calcium 600-Vit D3 200 Tablet] 1 each PO 01/19/18 Fluticasone Propionate [Flovent Diskus] 50 mcg IH DAILY 01/19/18 Diltiazem Cd [Cardizem Cd -] 180 mg PO DAILY cap.cd.24h 01/22/18 Metoprolol Succinate [Toprol XL -] 50 mg PO BID tab.sr.24h 01/22/18
[2018-01-22 14:59] VITALS: BP 106/60; PULSE 68; TEMP 98.2
--- NOTE | 2018-01-22 15:34 | PN ---
Progress Note (short form) - Note Progress Note: s: no cp sob palps dizzy o: Vital Signs Period Temp Pulse Resp BP Sys/Cardenas Pulse Ox Last 24 Hr 97.6 F-98.8 F 68-72 18-20 101-116/60-72 95-95 Constitutional: Yes: Well Nourished, No Distress, Calm Eyes: Yes: Conjunctiva Clear HENT: Yes: Atraumatic, Normocephalic Neck: Yes: Supple, Trachea Midline Respiratory: Yes: Regular, CTA Bilaterally Gastrointestinal: Yes: Normal Bowel Sounds, Soft Cardiovascular: Yes: rrr JVD: No Heart Sounds: Yes: S1, S2 Edema: No Neurological: Yes: Alert, Oriented Psychiatric: Yes: Alert, Oriented no jaundice diaphoresis Current Medications Acetaminophen (Tylenol -) 650 mg PO Q4H PRN PRN Reason: FEVER Apixaban (Eliquis -) 5 mg PO BID [facility] Last Admin: 01/22/18 10:07 Dose: 5 mg Benzocaine/Menthol (Cepacol Lozenge -) 1 each MM Q6H PRN PRN Reason: SORE THROAT Last Admin: 01/21/18 22:13 Dose: 1 each Diltiazem HCl (Cardizem Cd -) 180 mg PO DAILY [facility] Last Admin: 01/22/18 10:08 Dose: 180 mg Metoprolol Succinate (Toprol Xl -) 50 mg PO BID [facility] Last Admin: 01/22/18 10:08 Dose: 50 mg Metoprolol Tartrate (Lopressor Injection -) 5 mg IVPUSH Q4H PRN PRN Reason: TACHYCARDIA Mirtazapine (Remeron -) 7.5 mg PO [facility] Last Admin: 01/21/18 22:12 Dose: 7.5 mg Mometasone Furoate (Asmanex 220mcg -) 1 puff IH [facility] Last Admin: 01/21/18 22:12 Dose: 1 puff Ondansetron HCl (Zofran Injection) 4 mg IVPUSH Q6H PRN PRN Reason: NAUSEA Rosuvastatin Calcium (Crestor -) 5 mg PO [facility] Last Admin: 01/21/18 22:13 Dose: 5 mg carotid dopplers: no hemodynamically significant stenosis Echo 01/2018 tds, nl LV size and function, cannot rule out WMA, RVSP >60 mmHg ekg: aflutter, rate controlled, no ischemic changes cxr: clear lungs Assessment/Plan 87M h/o FLASH, lyme disease, HLD, depression, afib, here s/p syncope. syncope: -no signs acs, chf -ortho vs normal -recent echo and carotids w/o etiology -possibly vagal, possibly related to afib with rvr -rate control as below afib: -rvr here--> increased toprol and dilt - pt now in sinus, continue same meds -cont eliquis fatigue, somnolence: - chronic, unremitting sx for few months - lyme workup negative, d/w Dr. Richards fatigue chronic and likely new baseline. also has severe FLASH not complying with treatment - not AF sx, as pt was in sinus on presentation to ER here - had stress test with Dr. Zhao since symptoms developed which was unremarkable - likely sxs due to depression/anxiety pulm HTN - RVSP >60 mmHg, RV not well visualized - advised patient to followup with Dr. Zhao for further work up HLD - continue crestor stable for discharge from cardiac perspective
== END 2018-01-22 18:15 ==
LOC: JER 11:13 → JERBED 14:55 → J4W 19:40
PROVIDERS: ADMIT Internal Medicine; ATTEND Internal Medicine
PROC: 3E0F7GC Introduction of Other Therapeutic Substance into Respiratory Tract, Via Natural or Artificial Opening (ICD-10-PCS; principal; 2018-01-19)
DX: R55 Syncope and collapse (principal); I48.2 Chronic atrial fibrillation; I27.20 Pulmonary hypertension, unspecified; E78.5 Hyperlipidemia, unspecified; F32.9 Major depressive disorder, single episode, unspecified; K21.9 Gastro-esophageal reflux disease without esophagitis; R53.83 Other fatigue; G47.30 Sleep apnea, unspecified; Z99.89 Dependence on other enabling machines and devices; Z79.01 Long term (current) use of anticoagulants; Z88.0 Allergy status to penicillin
CPT/HCPCS: 36415; 71045-TC-FY; 80048; 80053; 81003; 82550; 82803; 83605; 83735; 84100; 84484; 85025; 85610; 85730; 87040; 87086; 93005; 93010; 94640; 97116-GP; 97161-GP; 99285-25; G0378

== ENCOUNTER 2018-06-14 14:18 | Emergency (ER) | payer OTHER, BC ==
--- NOTE | 2018-06-14 14:34 | PDOC ---
Rapid Medical Evaluation Time Seen by Provider: 06/14/18 14:32 Medical Evaluation: Allergies Allergy/AdvReac Type Severity Reaction Status Date / Time Penicillins Allergy Severe throat Verified 01/19/18 11:37 swelling 06/14/18 14:32 I performed a brief in-person evaluation of this patient. Chief complaint: Weakness, fatigue x several months. Feels "the doctors are missing something." Pertinent physical exam findings: Irregular rhythm, S1/S2. Clear lungs. I have ordered the following: EKG, CBC, CMP, PT/INR, UA, CXR Patient will proceed to the ED for further evaluation. 06/14/18 14:34 Discharge Disposition - Diagnosis Weakness - Referrals - Patient Instructions - Post Discharge Activity
[2018-06-14 14:36] VITALS: BP 139/60; PULSE 101; TEMP 98.4; BMI 26.6
[2018-06-14 14:59] LABS: BASO % 0.9 % (0-2.0); EOS % 2.7 % (0-4.5); HEMATOCRIT 45.4 % (35.4-49); HEMOGLOBIN 15.5 GM/dL (11.7-16.9); LYMPH % 24.5 % (8-40); MCH 32.4 pg (25.7-33.7); MCHC 34.3 g/dl (32.0-35.9); MEAN CELL VOLUME 94.5 fl (80-96); MEAN PLT VOLUME 8.3 fl (7.5-11.1); MONO % 7.9 % (3.8-10.2); PLATELET COUNT 182 K/MM3 (134-434); RDW 14.8 % (11.9-15.9); WHITE BLOOD COUNT 9.2 K/mm3 (4.0-10.0)
[2018-06-14 15:08] LABS: INR 1.13 (0.83-1.09); PROTHROMBIN TIME (PATIENT) 13.4 SEC (9.7-13.0)
[2018-06-14 15:34] LABS: ALBUMIN 3.6 g/dl (3.4-5.0); ALK PHOS 66 U/L (45-117); ANION GAP 4 MMOL/L (8-16); BILIRUBIN,TOTAL 0.5 mg/dL (0.2-1); BLOOD UREA NITROGEN 18 mg/dL (7-18); CALCIUM 8.8 mg/dL (8.5-10.1); CHLORIDE 108 mmol/L (98-107); CO2 29 mmol/L (21-32); GLUCOSE,RANDOM 105 mg/dL (74-106); POTASSIUM 4.4 mmol/L (3.5-5.1); SGOT/AST 24 U/L (15-37); SGPT/ALT 43 U/L (13-61); SODIUM 140 mmol/L (136-145)
[2018-06-14 15:37] LABS: URINE APPEARANCE CLEAR; URINE BILIRUBIN NEGATIVE (<2.0 mg/dL); URINE COLOR YELLOW; URINE GLUCOSE (UA) NEGATIVE (NEGATIVE); URINE KETONE NEGATIVE (NEGATIVE); URINE LEUK ESTERASE NEGATIVE (NEGATIVE); URINE NITRITE NEGATIVE (NEGATIVE); URINE PROTEIN NEGATIVE (NEGATIVE)
[2018-06-14 15:39] LABS: URINE MUCUS RARE
--- NOTE | 2018-06-14 18:03 | PDOC ---
History of Present Illness - General Chief Complaint: Weakness Stated Complaint: WEAKNESS Time Seen by Provider: 06/14/18 14:32 - History of Present Illness Initial Comments: 88yo M with history of Afib on eliquis, HLD, FLASH, depression complaining of weakness. Patient states he was in the hospital last January for a syncopal episode and PNA. Since even before that time, he has felt weak. He has seen his primary care provider who performed blood work as recent as last weak, however, he thinks there is something being missed. "I'm depressed because I don't know what's going on with me." He reports having Lyme Disease six years ago and feels that may be why he is weak. Patient reports low energy and poor appetite. He has been instructed to be more active and take walks outside, but he does not do so. Denies fevers, chills, chest pain, shortness of breath, or abdominal pain. PCP: Dr. Richards Past History - Past Medical History Allergies/Adverse Reactions: Allergies Allergy/AdvReac Type Severity Reaction Status Date / Time Penicillins Allergy Severe throat Verified 06/14/18 14:36 swelling Home Medications: Ambulatory Orders Apixaban [Eliquis -] 5 mg PO BID #60 tablet 01/07/18 Mirtazapine [Remeron -] 7.5 mg PO HS #30 tablet 01/07/18 Rosuvastatin [Crestor -] 5 mg PO HS #30 tablet 01/07/18 Calcium Carbonate/Vitamin D3 [Calcium 600-Vit D3 200 Tablet] 1 each PO 01/19/18 Fluticasone Propionate [Flovent Diskus] 50 mcg IH DAILY 01/19/18 Diltiazem Cd [Cardizem Cd -] 180 mg PO DAILY cap.cd.24h 01/22/18 Metoprolol Succinate [Toprol XL -] 50 mg PO BID tab.sr.24h 01/22/18 Cardiac Disorders: Yes (AFIB ON EIQUIS) COPD: No GI Disorders: Yes (GERD) Hypercholesterolemia: Yes - Surgical History Orthopedic Surgery: Yes (R TSR) - Immunization History Immunization Up to Date: Yes - Suicide/Smoking/Psychosocial Hx Smoking History: Never smoked Have you smoked in the past 12 months: No Information on smoking cessation initiated: No Hx Alcohol Use: No Drug/Substance Use Hx: No Substance Use Type: None Hx Substance Use Treatment: No Review of Systems - Review of Systems Comments:: Constitutional: no fever, no chills HEENT: no throat pain, no dysphagia Cardiovascular: no chest pain, no palpitations Respiratory: no cough, no shortness of breath Gastrointestinal: no abdominal pain, no nausea Genitourinary: no dysuria, no frequency Musculoskeletal: no myalgia, no arthralgia Skin: no rash, no itching Neurologic: no headache, +weakness *Physical Exam - Vital Signs Last Vital Signs Temp Pulse Resp BP Pulse Ox 98.4 F 101 H 19 139/60 97 06/14/18 14:31 06/14/18 14:31 06/14/18 14:31 06/14/18 14:31 06/14/18 14:31 - Physical Exam Comments: General: Awake, alert, and fully oriented, in no acute distress Head: No signs of trauma Eyes: EOMI, sclera anicteric ENT: Moist mucus membranes Neck: Normal ROM, supple Lungs: Lungs clear, Normal breath sounds Cardio: Irregular rate, S1 and S2 present Abdomen: Soft, nontender. No guarding, no rebound, no masses Extremities: Normal range of motion, Distal pulses present SKIN: Warm, Dry, normal turgor Neurologic: Cranial nerves II through XII grossly intact. Normal speech Moderate Sedation - Procedure Monitoring Vital Signs: Procedure Monitoring Vital Signs Temperature 98.4 F 06/14/18 14:31 Pulse Rate 101 H 06/14/18 14:31 Respiratory Rate 19 06/14/18 14:31 Blood Pressure 139/60 06/14/18 14:31 O2 Sat by Pulse Oximetry (%) 97 06/14/18 14:31 ED Treatment Course - LABORATORY CBC & Chemistry Diagram: 06/14/18 14:46 06/14/18 14:46 - ADDITIONAL ORDERS Additional order review: Laboratory Results 06/14/18 06/14/18 06/14/18 15:01 14:46 14:46 PT with INR 13.40 H INR 1.13 H Sodium 140 Potassium 4.4 Chloride 108 H Carbon Dioxide 29 Anion Gap 4 L BUN 18 Creatinine 1.0 Creat Clearance w eGFR 70.68 Random Glucose 105 Calcium 8.8 Total Bilirubin 0.5 AST 24 ALT 43 Alkaline Phosphatase 66 Total Protein 7.0 Albumin 3.6 Urine Color Yellow Urine Appearance Clear Urine pH 5.0 Ur Specific Coggon 1.018 Urine Protein Negative Urine Glucose (UA) Negative Urine Ketones Negative Urine Blood 1+ H Urine Nitrite Negative Urine Bilirubin Negative Urine Urobilinogen 2.0 Ur Leukocyte Esterase Negative Urine WBC (Auto) <1 Urine RBC (Auto) 7 Urine Mucus Rare 06/14/18 14:46 RBC 4.80 MCV 94.5 MCHC 34.3 RDW 14.8 MPV 8.3 Neutrophils % 64.0 Lymphocytes % 24.5 Monocytes % 7.9 Eosinophils % 2.7 Basophils % 0.9 Medical Decision Making - Medical Decision Making 88yo M with history of Afib on eliquis, HLD, FLASH, depression complaining of weakness. DDX including but not limited to electrolyte abnormality, hypothyroidism, infection (PNA, UTI), anemia, depression No anemia or leukocytosis CXR without acute pathology UA negative for infection Pending TSH and Tpn Lyme is send out test EKG: rate 87, QTc 425, Afib, left axis deviation Likely DC home 06/14/18 19:48 TSH WNL Tpn negative Patient with unremarkable workup Callback set up for patient to be notified of lyme test result Pt discharged 06/14/18 21:19 *DC/Admit/Observation/Transfer Diagnosis at time of Disposition: Weakness - Discharge Dispostion Disposition: HOME Condition at time of disposition: Stable - Referrals Schedule a call back: lyme test result (pos or neg) Referrals: Tia Richards MD [Primary Care Provider] - - Patient Instructions Printed Discharge Instructions: DI for Muscle Weakness Additional Instructions: You came into the ED for weakness. Lab work and Xray did not show acute pathology. You will be called back when your Lyme test has resulted. Follow up with a primary care provider to discuss your ER visit and for further management of your weakness. Immediate medical attention is required if: have any chest pain, palpitations, shortness of breath, severe headaches, changes in vision, focal numbness or weakness, any severe abdominal pain, any black tarry stool, or any new or concerning symptoms. If you think you are having an emergency, call for emergency medical services or present to the emergency department right away. - Post Discharge Activity
--- NOTE | 2018-06-14 18:37 | PDOC ---
Attending Attestation - Resident Resident Name: KateFrancie - ED Attending Attestation I have performed the following: I have examined & evaluated the patient, The case was reviewed & discussed with the resident, I agree w/resident's findings & plan - HPI HPI: 06/14/18 18:43 88 YOM with h/o afib (on Eliquis, Toprol, diltiazem), sleep apnea on CPAP, lyme disease, HLD (on Crestor), and depression who p/w generalized weakness worsening for several months; prior syncope eval where he was admitted and unremarkable workup. Pt states he feels he is not getting answers, with recent outpatient lab work unremarkable as well - Physicial Exam PE: 06/14/18 18:42 NAD, well appearing, PERRL, EOMI, MMM, nl conjunctiva, anicteric; neck supple. lungs clear, irreg irregular abdomen soft nontender. SIDDIQUI x4, no focal neuro deficits. No peripheral edema. normal color for ethnicity, WWP. - Medical Decision Making 06/14/18 18:36 History of physical examination as documented. Vital signs reviewed, mild tachycardia but is mildly anxious and questioning the resident's on evaluation. prior notes reviewed and hospital stay in 01/2018 - no etiology for syncope, unremarkable echo and carotid duplex, likely vasovagal syncope/orthostatics, rate controlled for his Afib, currently on AC. chronic lyme noted, negative workup, also grabiel noncompliance as etiology for weakness. unremarkable stress testing. Laboratory results including CBC and electrolytes are within normal limits. Urinalysis was negative for any kind of infection. He is well-appearing, complaining of nonfocal symptoms and generalized weakness. Troponin is negative , cardiac enzymes are unremarkable. He has no focal deficits, speech is clear, ambulatory and comfortable. doubt ACS or arrhythmia. doubt pe as he is already on AC, so less likely CXR unremarkable EKG nonischemic, Afib controlled rate f/u lyme, could be chronic lyme, f/u titer and reflex testing reassurance provided, expectant management. Pt informed of my clinical impression, treatment recommendations and disposition plan. All questions answered to patient's satisfaction and expressed understanding and comfort with this. Reasons for returning to the ED sooner discussed with the patient otherwise, follow up with primary care physician. At the time of discharge, the patient is alert, clinically improved, tolerating po and verbalizes understanding of instructions. Patient does not suffer from an acute life-threatening medical condition at this time she is safe for outpatient follow-up. 06/14/18 18:43 06/14/18 18:45 06/15/18 09:05 Heart Score/ECG Review #1 ECG reviewed & interpreted by me at: 16:00 General ECG Interpretation: Normal Rate Compared to previous ECG there are: No significant change 06/15/18 09:06 atrial fibrillation, controlled rate
--- NOTE | 2018-06-15 11:11 | EKG ---
Test Reason : Blood Pressure : / mmHG Vent. Rate : 087 BPM Atrial Rate : 093 BPM P-R Int : 000 ms QRS Dur : 070 ms QT Int : 354 ms P-R-T Axes : 000 -38 035 degrees QTc Int : 425 ms ATRIAL FIBRILLATION LEFT AXIS DEVIATION ABNORMAL ECG Confirmed by ALEXANDER JONES MD ([id number]) on 06/15/2018 11:10:33 AM Referred By: Confirmed By:ALEXANDER JONES MD
== END 2018-06-14 21:32 | disposition home or self-care (01) ==
LOC: JER 14:18
DX: R53.1 Weakness (principal); I48.91 Unspecified atrial fibrillation; Z79.01 Long term (current) use of anticoagulants; E78.5 Hyperlipidemia, unspecified; K21.9 Gastro-esophageal reflux disease without esophagitis; G47.33 Obstructive sleep apnea (adult) (pediatric)
CPT/HCPCS: 36415; 71046-TC-FY; 80053; 81003; 81015; 82550; 84443; 84484; 85025; 85610; 86618; 93005; 93010; 99283-25

== ENCOUNTER 2019-03-14 20:34 | Inpatient (IN) | payer OTHER, BC ==
--- NOTE | 2019-03-14 21:02 | PDOC ---
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 He cannot express what is going on but he states he feels weak and something is wrong with his head. He states he thinks he is becoming more and more forgetful and having a harder time taking care of himself. The patient states he feels lightheaded but denies room spinning and denies feeling like he is going to pass out or fall down. The patient has not fallen down or experienced any trauma. He also states he has been sweating profusely much jordan than normal. The patient states he occasionally gets headaches and is worried something is wrong inside of his head. Denies having experienced chest pain, SOB, difficulty breathing, weakness, numbness, tingling, chills, back pain, abdominal pain, dysuria, frequency, urgency, nausea, vomiting, diarrhea, or constipation. PCP: Tia Reid PSH: R shoulder Sx Allergies: Penicillins Social Hx: Denies smoking, drinking, or other substance abuse. Past History - Past Medical History Allergies/Adverse Reactions: Allergies Allergy/AdvReac Type Severity Reaction Status Date / Time Penicillins Allergy Severe throat Verified 03/14/19 20:45 swelling Home Medications: Ambulatory Orders RX: Apixaban [Eliquis -] 5 mg PO BID #60 tablet 01/07/18 RX: Mirtazapine [Remeron -] 7.5 mg PO HS #30 tablet 01/07/18 RX: Rosuvastatin [Crestor -] 5 mg PO HS #30 tablet 01/07/18 RX: Calcium Carbonate/Vitamin D3 [Calcium 600-Vit D3 200 Tablet] 1 each PO 01/19 RX: Fluticasone Propionate [Flovent Diskus] 50 mcg IH DAILY 01/19/18 RX: Diltiazem Cd [Cardizem Cd -] 180 mg PO DAILY cap.cd.24h 01/22/18 RX: Metoprolol Succinate [Toprol XL -] 50 mg PO BID tab.sr.24h 01/22/18 Cardiac Disorders: Yes (AFIB) COPD: Yes (SLEEP APNEA) GI Disorders: Yes (GERD) Hypercholesterolemia: Yes Other medical history: ACUTE FATIGUE SYNDRONE - Surgical History Orthopedic Surgery: Yes (R TSR) - Immunization History Immunization Up to Date: Yes - Psycho Social/Smoking Cessation Hx Smoking History: Never smoked Have you smoked in the past 12 months: No Hx Alcohol Use: No Drug/Substance Use Hx: No Substance Use Type: None Hx Substance Use Treatment: No Review of Systems - Review of Systems Able to Perform ROS?: Yes Comments:: CONSTITUTIONAL: Present: diaphoresis, generalized weakness, malaise Absent: fever, chills, loss of appetite HEENT: Absent: rhinorrhea, nasal congestion, throat pain, throat swelling, difficulty swallowing, mouth swelling, ear pain, eye pain, visual Changes CARDIOVASCULAR: Present: lightheadedness Absent: chest pain, syncope, palpitations, irregular heart rate, peripheral edema RESPIRATORY: Absent: cough, shortness of breath, dyspnea with exertion, orthopnea, wheezing, stridor, hemoptysis GASTROINTESTINAL: Absent: abdominal pain, abdominal distension, nausea, vomiting, diarrhea, constipation, melena, hematochezia GENITOURINARY: Absent: dysuria, frequency, urgency, hesitancy, hematuria, flank pain, genital pain MUSCULOSKELETAL: Absent: myalgia, arthralgia, joint swelling SKIN: Absent: rash, itching, pallor HEMATOLOGIC/IMMUNOLOGIC: Absent: easy bleeding, easy bruising, lymphadenopathy, frequent infections ENDOCRINE: Absent: unexplained weight gain, unexplained weight loss, heat intolerance, cold intolerance NEUROLOGIC: Present: headache Absent: focal weakness or paresthesias, dizziness, unsteady gait, seizure, mental status changes, bladder or bowel incontinence PSYCHIATRIC: Absent: anxiety, depression, suicidal or homicidal ideation, hallucinations. *Physical Exam - Vital Signs Last Vital Signs Temp Pulse Resp BP Pulse Ox 98.1 F 89 20 110/63 98 03/14/19 20:46 03/14/19 20:46 03/14/19 20:46 03/14/19 20:46 03/14/19 20:46 - Physical Exam GENERAL: Smells of urine. Not well kept. Diaphoretic. Well developed. Awake and alert. No acute distress. HEENT: Normocephalic, atraumatic. PERRLA, EOMI. No conjunctival pallor. Sclera are non- icteric. Moist mucous membranes. Oropharynx is clear. NECK: Supple. Full ROM. No JVD. CARDIOVASCULAR: Iregularly irregular. No murmurs, rubs, or gallops. Distal pulses are 2+ and symmetric. PULMONARY: No evidence of respiratory distress. Lungs clear to auscultation bilaterally. No wheezing, rales or rhonchi. ABDOMINAL: Soft. Non-tender. Non-distended. No rebound or guarding. No organomegaly. Normoactive bowel sounds. MUSCULOSKELETAL Normal range of motion at all joints. No bony deformities or tenderness. No CVA tenderness. EXTREMITIES: No cyanosis. No clubbing. No edema. No calf tenderness. SKIN: Warm and diaphoretic. Normal capillary refill. No rashes. No jaundice. NEUROLOGICAL: Alert, awake, appropriate. Cranial nerves 2-12 intact. No deficits to light touch in face, upper extremities and lower extremities. No motor deficits in the in face, upper extremities and lower extremities. Normal speech. Gait is normal without ataxia. PSYCHIATRIC: Cooperative. Good eye contact. Appropriate mood and affect. ED Treatment Course - LABORATORY CBC & Chemistry Diagram: 03/14/19 22:02 03/14/19 22:02 - RADIOLOGY Radiograph Interpretation: Head CT: Cranial CT without contrast Clinical information evaluate for CVA No intracranial hemorrhage is seen. There is no extra-axial fluid collection. Chronic bilateral basal ganglia infarcts are noted. Mild to moderate periventricular chronic microvascular ischemic changes are seen. There is no obvious mass lesion on noncontrast imaging. Involutional changes are noted with mild ventricular dilatation. Moderate left maxillary sinus mucosal thickening is again seen (versus be recurrent in nature). There is partial imaging of a lipomatous lesion within the superficial lobe of the right parotid gland as also described on prior CT and MRI studies. Impression: No CT evidence of acute intracranial pathology. Chronic bilateral basal ganglia infarcts. Mild to moderate periventricular chronic microvascular ischemic changes. No definite interval change is noted in comparison to a prior CT exam of 01/02/2018. Moderate left maxillary sinus mucosal thickening is again visualized. 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 He cannot express what is going on but he states he feels weak and something is wrong with his head. He states he thinks he is becoming more and more forgetful and having a harder time taking care of himself. The patient states he feels lightheaded but denies room spinning and denies feeling like he is going to pass out or fall down. The patient has not fallen down or experienced any trauma. He also states he has been sweating profusely much jordan than normal. The patient states he occasionally gets headaches and is worried something is wrong inside of his head. Vital Signs Temp Pulse Resp BP Pulse Ox 98.1 F 89 20 110/63 98 03/14/19 20:46 03/14/19 20:46 03/14/19 20:46 03/14/19 20:46 03/14/19 20:46 DDx IBNLT: CVA/TIA, ACS, heart failure, PNA, UTI, electrolyte/metabolic disturbance, Arrythmia, anemia, brain bleed, dehydration Plan: Labs, Urine, CXR, EKG, Head CT, IV hydration, re-assessment EKG: Sinus rhythm w/ 1st degree AV block CA 220, narrow complexes, normal axis, no hypertrophy, no ST elevations or depressions, no Q waves, QTc 459 Labs: ILIANA, elevated BNP, leukocytosis Urine: Unremarkable CXR: Unremarkable Head CT: No CT evidence of acute intracranial pathology. Chronic bilateral basal ganglia infarcts. Mild to moderate periventricular chronic microvascular ischemic changes. No definite interval change is noted in comparison to a prior CT exam of 01/02/2018. Re-assessment: Patient informed about elevated BNP and kidney injury. I have recommended admission to the hospital Disposition: Admission to hospital - Patient microblogged to symphony - Dr. Berry will give report to hospitalist team. Discharge - Discharge Information Problems reviewed: Yes Clinical Impression/Diagnosis: ILIANA (acute kidney injury) Heart failure Qualifiers: Heart failure type: unspecified Heart failure chronicity: unspecified Qualified Code(s): I50.9 - Heart failure, unspecified Condition: Stable - Admission Yes - Follow up/Referral Referrals: Tia Richards MD [Primary Care Provider] - Gage Vallejo MD [Staff Physician] - - Patient Discharge Instructions Patient Printed Discharge Instructions: Chronic Fatigue Syndrome, DI for Muscle Weakness Print Language: TURKMEN - Post Discharge Activity
[2019-03-14] MEDS ORDERED: SODIUM CHLORIDE 500 ML IV STA (21:03)
--- NOTE | 2019-03-14 21:51 | PDOC ---
Attending Attestation - Resident Resident Name: Tommy Patel - ED Attending Attestation I have performed the following: I have examined & evaluated the patient, The case was reviewed & discussed with the resident, I agree w/resident's findings & plan, Exceptions are as noted - HPI HPI: 03/15/19 07:22 See resident HPI - Physicial Exam PE: 03/15/19 07:22 Agree with exam as documented by resident - Medical Decision Making 03/15/19 07:22 P/w acute worsening over the last day of intermediate generalized weakness elevated BNP, ILIANA on labs admit for tx and evaluation
[2019-03-14 22:20] LABS: BASO % 0.5 % (0-2.0); EOS % 2.4 % (0-4.5); HEMATOCRIT 45.7 % (35.4-49); HEMOGLOBIN 15.3 GM/dL (11.7-16.9); LYMPH % 20.4 % (8-40); MCH 31.6 pg (25.7-33.7); MCHC 33.5 g/dl (32.0-35.9); MEAN CELL VOLUME 94.5 fl (80-96); MEAN PLT VOLUME 8.9 fl (7.5-11.1); MONO % 12.9 % (3.8-10.2); NEUT % 63.8 % (42.8-82.8); PLATELET COUNT 219 K/MM3 (134-434); RBC 4.84 M/mm3 (4.00-5.60); RDW 13.8 % (11.9-15.9); URINE APPEARANCE CLEAR; URINE BILIRUBIN NEGATIVE (NEGATIVE); URINE COLOR YELLOW; URINE GLUCOSE (UA) NEGATIVE (NEGATIVE); URINE KETONE NEGATIVE (NEGATIVE); URINE LEUK ESTERASE NEGATIVE (NEGATIVE); URINE NITRITE NEGATIVE (NEGATIVE); URINE PROTEIN NEGATIVE (NEGATIVE); WHITE BLOOD COUNT 11.9 K/mm3 (4.0-10.0)
[2019-03-14 22:37] LABS: INR 1.44 (0.83-1.09); PROTHROMBIN TIME (PATIENT) 17.1 SEC (9.7-13.0)
[2019-03-14 22:40] LABS: ACTIVATED PTT 34.9 SECONDS (25.2-36.5)
[2019-03-14 22:41] LABS: MAGNESIUM 2.4 mg/dL (1.8-2.4)
[2019-03-14 22:44] LABS: ALBUMIN 3.9 g/dl (3.4-5.0); ALK PHOS 62 U/L (45-117); ANION GAP 5 MMOL/L (8-16); BILIRUBIN,TOTAL 0.6 mg/dL (0.2-1); CALCIUM 9.3 mg/dL (8.5-10.1); CHLORIDE 104 mmol/L (98-107); CO2 32 mmol/L (21-32); CREATININE 1.4 mg/dL (0.55-1.3); GLUCOSE,RANDOM 107 mg/dL (74-106); N-TERMINAL BNP 2646.3 pg/ml (5-450); POTASSIUM 3.8 mmol/L (3.5-5.1); SGOT/AST 18 U/L (15-37); SGPT/ALT 27 U/L (13-61); SODIUM 141 mmol/L (136-145); TOT PROT 7.7 g/dl (6.4-8.2)
--- NOTE | 2019-03-15 01:19 | HP ---
CHIEF COMPLAINT: PCP: Dr. 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 He states he feels tired and needs to sit down if he walks <1 block. He reports feeling this way for months but acutely worsened today. He reports poor appetite as well with a 20lbs wt loss over the past few mths. He reports excessive day time sleepiness. Pt uses CPAP at home for his FLASH but notes he forgets to wear it some nights. Furthermore, of note pt recently had a dental procedure/cleaning and has cavities that were worked on 2 days ago and that is what he attributes his facial swelling to. He denies cp, sob, weakness, numbness/tingling, bowel/ bladder complaints. 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 ER course was notable for: (1)BUN/Cr- 25/1.4, Wbc- 11.9 (2)HDL- 107, UA negative, Lyme negative (3)HDL- 73, BNP- 2643 Recent Travel: denies Social History: Smoking:denies Alcohol:denies Drugs: denies Allergies Penicillins Allergy (Severe, Verified 03/14/19 20:45) throat swelling HOME MEDICATIONS: Home Medications Medication Instructions Recorded Apixaban [Eliquis -] 5 mg PO BID #60 tablet 01/07/18 Mirtazapine [Remeron -] 7.5 mg PO HS #30 tablet 01/07/18 Rosuvastatin [Crestor -] 5 mg PO HS #30 tablet 01/07/18 Calcium Carbonate/Vitamin D3 1 each PO 01/19/18 [Calcium 600-Vit D3 200 Tablet] Fluticasone Propionate [Flovent 50 mcg IH DAILY 01/19/18 Diskus] Diltiazem Cd [Cardizem Cd -] 180 mg PO DAILY cap.cd.24h 01/22/18 Metoprolol Succinate [Toprol XL -] 50 mg PO BID tab.sr.24h 01/22/18 REVIEW OF SYSTEMS negative except above PHYSICAL EXAMINATION Vital Signs - 24 hr 03/14/19 20:46 Temperature 98.1 F Pulse Rate 89 Respiratory 20 Rate Blood Pressure 110/63 O2 Sat by Pulse 98 Oximetry (%) GENERAL: Awake, alert, and fully oriented, in no acute distress. LUNGS: Breath sounds equal, clear to auscultation bilaterally. No wheezes, and no crackles. HEART: Regular rate and rhythm, normal S1 and S2 without murmur, rub or gallop. ABDOMEN: Soft, nontender, not distended, normoactive bowel sounds, no guarding, no rebound. MUSCULOSKELETAL: Normal range of motion at all joints. No bony deformities or tenderness. UPPER EXTREMITIES: dtr intact upper and lower extremities b/l LOWER EXTREMITIES: 2+ pulses, warm, well-perfused. No calf tenderness. No peripheral edema. NEUROLOGICAL: Cranial nerves II-XII intact. Normal speech. Hunched gait but no weakness b/l upper or LE's, sensation intact, PSYCHIATRIC: Cooperative. Good eye contact. Appropriate mood and affect. SKIN: Warm, dry, normal turgor, no rashes or lesions noted. Laboratory Results - last 24 hr 03/14/19 03/14/19 03/14/19 22:02 22:02 22:02 WBC 11.9 H RBC 4.84 Hgb 15.3 Hct 45.7 MCV 94.5 MCH 31.6 MCHC 33.5 RDW 13.8 Plt Count 219 D MPV 8.9 Absolute Neuts (auto) 7.6 Neutrophils % 63.8 Lymphocytes % 20.4 Monocytes % 12.9 H Eosinophils % 2.4 Basophils % 0.5 Nucleated RBC % 0 PT with INR 17.10 H INR 1.44 H PTT (Actin FS) 34.9 Sodium 141 Potassium 3.8 Chloride 104 Carbon Dioxide 32 Anion Gap 5 L BUN 25.0 H Creatinine 1.4 H Est GFR (CKD-EPI)AfAm 51.99 Est GFR (CKD-EPI)NonAf 44.86 Random Glucose 107 H Calcium 9.3 Magnesium Total Bilirubin 0.6 AST 18 ALT 27 Alkaline Phosphatase 62 Creatine Kinase 62 Troponin I < 0.02 B-Natriuretic Peptide 2646.3 H Total Protein 7.7 Albumin 3.9 Triglycerides Cholesterol Total LDL Cholesterol HDL Cholesterol Urine Color Urine Appearance Urine pH Ur Specific Hardin Urine Protein Urine Glucose (UA) Urine Ketones Urine Blood Urine Nitrite Urine Bilirubin Urine Urobilinogen Ur Leukocyte Esterase Blood Type Antibody Screen 03/14/19 03/14/19 03/14/19 22:02 22:02 22:02 WBC RBC Hgb Hct MCV MCH MCHC RDW Plt Count MPV Absolute Neuts (auto) Neutrophils % Lymphocytes % Monocytes % Eosinophils % Basophils % Nucleated RBC % PT with INR INR PTT (Actin FS) Sodium Potassium Chloride Carbon Dioxide Anion Gap BUN Creatinine Est GFR (CKD-EPI)AfAm Est GFR (CKD-EPI)NonAf Random Glucose Calcium Magnesium 2.4 Total Bilirubin AST ALT Alkaline Phosphatase Creatine Kinase Troponin I B-Natriuretic Peptide Total Protein Albumin Triglycerides 156 H Cholesterol 199 Total LDL Cholesterol 88 HDL Cholesterol 73 H Urine Color Yellow Urine Appearance Clear Urine pH 6.0 Ur Specific Hardin 1.025 Urine Protein Negative Urine Glucose (UA) Negative Urine Ketones Negative Urine Blood Negative Urine Nitrite Negative Urine Bilirubin Negative Urine Urobilinogen 1.0 Ur Leukocyte Esterase Negative Blood Type AB POSITIVE Antibody Screen Negative ASSESSMENT/PLAN: This is an 88 y/o M with a PMHx of FLASH, 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 #Generalized fatigue - likely chronic vs polypharmacy vs not taking all his medications appropriately - ordered esr, crp, b12, folate, tsh, rpr for dementia workup as his memory has not been great - PT consult - not anemic - May be due to inconsistent use of his CPAP machine leading to excessive daytime sleepiness. #ILIANA - Likely intrarenal given BUN/Cr ratio - avoid nephrotoxic agents or contrast dyes at this time - serum osm's - urine lytes - renal sono - FeUrea <35% incurs a pre-renal cause, >50% incurs an intrarenal cause #Chronic b/l basal ganglia infarct on CT - no acute intracranial pathology on imaging - may need to #AFIB - currently rate controlled with metoprolol - nsr ekg 87 bpm, 1st degree AV block - continue eliquis #HLD - Continue crestor 5mg - lipid panel was done non-fasting SCD's for ppx Visit type - Emergency Visit Emergency Visit: Yes ED Registration Date: 03/14/19 Care time: The patient presented to the Emergency Department on the above date and was hospitalized for further evaluation of their emergent condition. - New Patient This patient is new to me today: Yes Date on this admission: 03/16/19 - Critical Care Critical Care patient: No ATTENDING PHYSICIAN STATEMENT I saw and evaluated the patient. I reviewed the resident's note and discussed the case with the resident. I agree with the resident's findings and plan as documented. SUBJECTIVE: OBJECTIVE: ASSESSMENT AND PLAN:
--- NOTE | 2019-03-15 02:28 | PN ---
Teaching Attending Note Name of Resident: Suman Arriola ATTENDING PHYSICIAN STATEMENT I saw and evaluated the patient. I reviewed the resident's note and discussed the case with the resident. I agree with the resident's findings and plan as documented. 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 OBJECTIVE: Last Vital Signs Temp Pulse Resp BP Pulse Ox 98.1 F 89 20 110/63 98 03/14/19 20:46 03/14/19 20:46 03/14/19 20:46 03/14/19 20:46 03/14/19 20:46 GENERAL: Well developed, well nourished. Awake and alert. No acute distress. HEENT: Normocephalic, atraumatic. PERRLA, EOMI. No conjunctival pallor. Sclera are non- icteric. Moist mucous membranes. Oropharynx is clear. NECK: Supple. Full ROM. No JVD. Carotid pulses 2+ and symmetric, without bruits. No thyromegaly. No lymphadenopathy. CARDIOVASCULAR: Regular rate and rhythm. No murmurs, rubs, or gallops. Distal pulses are 2+ and symmetric. PULMONARY: No evidence of respiratory distress. Lungs clear to auscultation bilaterally. No wheezing, rales or rhonchi. ABDOMINAL: Soft. Non-tender. Non-distended. No rebound or guarding. No organomegaly. Normoactive bowel sounds. MUSCULOSKELETAL Normal range of motion at all joints. No bony deformities or tenderness. No CVA tenderness. EXTREMITIES: No cyanosis. No clubbing. No edema. No calf tenderness. SKIN: Warm and dry. Normal capillary refill. No rashes. No jaundice. PSYCHIATRIC: Cooperative. Good eye contact. Appropriate mood and affect. Abnormal Lab Results 03/14/19 03/14/19 03/14/19 22:02 22:02 22:02 WBC 11.9 H Monocytes % 12.9 H PT with INR 17.10 H INR 1.44 H Anion Gap 5 L BUN 25.0 H Creatinine 1.4 H Random Glucose 107 H B-Natriuretic Peptide 2646.3 H Triglycerides HDL Cholesterol 03/14/19 22:02 WBC Monocytes % PT with INR INR Anion Gap BUN Creatinine Random Glucose B-Natriuretic Peptide Triglycerides 156 H HDL Cholesterol 73 H imaging reviewed ASSESSMENT AND PLAN: #generalized weakness -med surg -tsh -vitamin b12 -check electrolytes, replete prn # AFIB- rate -elliquis -toprolol #depression -remeron #old infarcts -statin -asa dvt ppx -scds
[2019-03-15] MEDS ORDERED: HEPARIN NA (PORCINE) 5,000 UNITS/ML 1ML VIAL SQ SCH (06:00)
[2019-03-15] MEDS ORDERED: SODIUM CHLORIDE 1,000 ML IV SCH (06:30)
[2019-03-15 08:38] LABS: BASO % 0.7 % (0-2.0); EOS % 4.7 % (0-4.5); HEMATOCRIT 38.7 % (35.4-49); HEMOGLOBIN 13.3 GM/dL (11.7-16.9); LYMPH % 27.2 % (8-40); MCH 32.1 pg (25.7-33.7); MCHC 34.4 g/dl (32.0-35.9); MEAN CELL VOLUME 93.5 fl (80-96); MEAN PLT VOLUME 8.2 fl (7.5-11.1); MONO % 13.8 % (3.8-10.2); NEUT % 53.6 % (42.8-82.8); PLATELET COUNT 167 K/MM3 (134-434); RBC 4.14 M/mm3 (4.00-5.60); RDW 13.7 % (11.9-15.9); WHITE BLOOD COUNT 7.7 K/mm3 (4.0-10.0)
[2019-03-15 09:09] LABS: BILIRUBIN,TOTAL 0.5 mg/dL (0.2-1); BLOOD UREA NITROGEN 22.8 mg/dL (7-18); CALCIUM 8.4 mg/dL (8.5-10.1); CREATININE 1.1 mg/dL (0.55-1.3); MAGNESIUM 2.3 mg/dL (1.8-2.4); N-TERMINAL BNP 1430.5 pg/ml (5-450); PHOSPHOROUS 3.2 mg/dL (2.5-4.9); POTASSIUM 3.7 mmol/L (3.5-5.1); TOT PROT 6.1 g/dl (6.4-8.2)
[2019-03-15] MEDS: APIXABAN 5 MG TABLET PO SCH ×2 (10:06→21:57)
[2019-03-15] MEDS: CALCIUM 500MG/VIT-D 200 UNITS COMBO TABLET (FP) PO SCH (10:07)
--- NOTE | 2019-03-15 13:16 | EKG ---
Test Reason : Blood Pressure : / mmHG Vent. Rate : 087 BPM Atrial Rate : 087 BPM P-R Int : 220 ms QRS Dur : 072 ms QT Int : 382 ms P-R-T Axes : 000 -21 043 degrees QTc Int : 459 ms ATRIAL FLUTTER NONSPECIFIC ST ABNORMALITY ABNORMAL ECG Confirmed by ALEXANDER JONES MD ([id number]) on 03/15/2019 1:15:41 PM Referred By: Confirmed By:ALEXANDER JONES MD
[2019-03-15 16:43] VITALS: BMI 27.0
--- NOTE | 2019-03-15 17:28 | HOSP ---
Subjective - Review of Symptoms Events since last encounter: 88 y.o. M h/o Afib on AC, depression, FLASH not compliant with CPAP, HLD presents with complaints of generalized weakness, fatigue and unsteadiness upon standing up. Orthostatics performed at bedside were positive. Patient evaluated by PT exhibited steady gait while using a walker. Vital Signs - 24 hr 03/14/19 03/15/19 03/15/19 20:46 03:27 04:00 Temperature 98.1 F 98.1 F 97.9 F Pulse Rate 89 83 Pulse Rate [ 86 Apical] Pulse Rate [ Sitting] Pulse Rate [ Standing] Pulse Rate [ Supine] Respiratory 20 20 18 Rate Blood Pressure 110/63 121/63 Blood Pressure 120/81 [Left Arm] Blood Pressure [Sitting] Blood Pressure [Standing] Blood Pressure [Supine] O2 Sat by Pulse 98 99 Oximetry (%) 03/15/19 03/15/19 03/15/19 04:30 05:00 05:45 Temperature 97.9 F Pulse Rate 83 Pulse Rate [ Apical] Pulse Rate [ Sitting] Pulse Rate [ Standing] Pulse Rate [ Supine] Respiratory 18 Rate Blood Pressure 121/68 Blood Pressure [Left Arm] Blood Pressure [Sitting] Blood Pressure [Standing] Blood Pressure [Supine] O2 Sat by Pulse 98 99 Oximetry (%) 03/15/19 03/15/19 03/15/19 08:53 09:00 11:22 Temperature 97.6 F Pulse Rate 87 Pulse Rate [ Apical] Pulse Rate [ 84 Sitting] Pulse Rate [ 85 Standing] Pulse Rate [ 82 Supine] Respiratory 20 Rate Blood Pressure 127/78 Blood Pressure [Left Arm] Blood Pressure 105/64 [Sitting] Blood Pressure 95/54 L [Standing] Blood Pressure 113/57 L [Supine] O2 Sat by Pulse 97 Oximetry (%) 03/15/19 03/15/19 13:00 15:04 Temperature 98.2 F Pulse Rate 58 L Pulse Rate [ Apical] Pulse Rate [ Sitting] Pulse Rate [ Standing] Pulse Rate [ Supine] Respiratory 20 Rate Blood Pressure 92/47 L Blood Pressure [Left Arm] Blood Pressure [Sitting] Blood Pressure [Standing] Blood Pressure [Supine] O2 Sat by Pulse 97 Oximetry (%) Laboratory Results - last 24 hr 03/14/19 03/14/19 03/14/19 22:02 22:02 22:02 WBC 11.9 H RBC 4.84 Hgb 15.3 Hct 45.7 MCV 94.5 MCH 31.6 MCHC 33.5 RDW 13.8 Plt Count 219 D MPV 8.9 Absolute Neuts (auto) 7.6 Neutrophils % 63.8 Lymphocytes % 20.4 Monocytes % 12.9 H Eosinophils % 2.4 Basophils % 0.5 Nucleated RBC % 0 ESR PT with INR 17.10 H INR 1.44 H PTT (Actin FS) 34.9 Sodium 141 Potassium 3.8 Chloride 104 Carbon Dioxide 32 Anion Gap 5 L BUN 25.0 H Creatinine 1.4 H Est GFR (CKD-EPI)AfAm 51.99 Est GFR (CKD-EPI)NonAf 44.86 POC Glucometer Random Glucose 107 H Calcium 9.3 Phosphorus Magnesium Total Bilirubin 0.6 AST 18 ALT 27 Alkaline Phosphatase 62 Creatine Kinase 62 Troponin I < 0.02 C-Reactive Protein B-Natriuretic Peptide 2646.3 H Total Protein 7.7 Albumin 3.9 Triglycerides Cholesterol Total LDL Cholesterol HDL Cholesterol Vitamin B12 TSH Urine Color Urine Appearance Urine pH Ur Specific [place] Urine Protein Urine Glucose (UA) Urine Ketones Urine Blood Urine Nitrite Urine Bilirubin Urine Urobilinogen Ur Leukocyte Esterase Ur Random Creatinine Ur Random Urea Nitrogn RPR Titer Blood Type Antibody Screen 03/14/19 03/14/19 03/14/19 22:02 22:02 22:02 WBC RBC Hgb Hct MCV MCH MCHC RDW Plt Count MPV Absolute Neuts (auto) Neutrophils % Lymphocytes % Monocytes % Eosinophils % Basophils % Nucleated RBC % ESR PT with INR INR PTT (Actin FS) Sodium Potassium Chloride Carbon Dioxide Anion Gap BUN Creatinine Est GFR (CKD-EPI)AfAm Est GFR (CKD-EPI)NonAf POC Glucometer Random Glucose Calcium Phosphorus Magnesium 2.4 Total Bilirubin AST ALT Alkaline Phosphatase Creatine Kinase Troponin I C-Reactive Protein B-Natriuretic Peptide Total Protein Albumin Triglycerides 156 H Cholesterol 199 Total LDL Cholesterol 88 HDL Cholesterol 73 H Vitamin B12 TSH Urine Color Yellow Urine Appearance Clear Urine pH 6.0 Ur Specific [place] 1.025 Urine Protein Negative Urine Glucose (UA) Negative Urine Ketones Negative Urine Blood Negative Urine Nitrite Negative Urine Bilirubin Negative Urine Urobilinogen 1.0 Ur Leukocyte Esterase Negative Ur Random Creatinine Ur Random Urea Nitrogn RPR Titer Blood Type AB POSITIVE Antibody Screen Negative 03/15/19 03/15/19 03/15/19 08:20 08:20 08:20 WBC 7.7 RBC 4.14 Hgb 13.3 Hct 38.7 D MCV 93.5 MCH 32.1 MCHC 34.4 RDW 13.7 Plt Count 167 D MPV 8.2 Absolute Neuts (auto) 4.1 Neutrophils % 53.6 Lymphocytes % 27.2 D Monocytes % 13.8 H Eosinophils % 4.7 H D Basophils % 0.7 Nucleated RBC % 0 ESR PT with INR INR PTT (Actin FS) Sodium 142 Potassium 3.7 Chloride 109 H Carbon Dioxide 28 Anion Gap 5 L BUN 22.8 H Creatinine 1.1 Est GFR (CKD-EPI)AfAm 69.59 Est GFR (CKD-EPI)NonAf 60.04 POC Glucometer Random Glucose 94 Calcium 8.4 L Phosphorus 3.2 Magnesium 2.3 Total Bilirubin 0.5 AST 12 L ALT 20 Alkaline Phosphatase 49 Creatine Kinase Troponin I C-Reactive Protein 4.3 H B-Natriuretic Peptide 1430.5 H Total Protein 6.1 L Albumin 3.0 L Triglycerides Cholesterol Total LDL Cholesterol HDL Cholesterol Vitamin B12 > 6000 H TSH 1.94 Urine Color Urine Appearance Urine pH Ur Specific [place] Urine Protein Urine Glucose (UA) Urine Ketones Urine Blood Urine Nitrite Urine Bilirubin Urine Urobilinogen Ur Leukocyte Esterase Ur Random Creatinine Ur Random Urea Nitrogn RPR Titer Blood Type Antibody Screen 03/15/19 03/15/19 03/15/19 08:20 08:20 14:15 WBC RBC Hgb Hct MCV MCH MCHC RDW Plt Count MPV Absolute Neuts (auto) Neutrophils % Lymphocytes % Monocytes % Eosinophils % Basophils % Nucleated RBC % ESR 16 PT with INR INR PTT (Actin FS) Sodium Potassium Chloride Carbon Dioxide Anion Gap BUN Creatinine Est GFR (CKD-EPI)AfAm Est GFR (CKD-EPI)NonAf POC Glucometer 140 Random Glucose Calcium Phosphorus Magnesium Total Bilirubin AST ALT Alkaline Phosphatase Creatine Kinase Troponin I C-Reactive Protein B-Natriuretic Peptide Total Protein Albumin Triglycerides Cholesterol Total LDL Cholesterol HDL Cholesterol Vitamin B12 TSH Urine Color Urine Appearance Urine pH Ur Specific [place] Urine Protein Urine Glucose (UA) Urine Ketones Urine Blood Urine Nitrite Urine Bilirubin Urine Urobilinogen Ur Leukocyte Esterase Ur Random Creatinine Ur Random Urea Nitrogn RPR Titer Nonreactive Blood Type Antibody Screen 03/15/19 15:03 WBC RBC Hgb Hct MCV MCH MCHC RDW Plt Count MPV Absolute Neuts (auto) Neutrophils % Lymphocytes % Monocytes % Eosinophils % Basophils % Nucleated RBC % ESR PT with INR INR PTT (Actin FS) Sodium Potassium Chloride Carbon Dioxide Anion Gap BUN Creatinine Est GFR (CKD-EPI)AfAm Est GFR (CKD-EPI)NonAf POC Glucometer Random Glucose Calcium Phosphorus Magnesium Total Bilirubin AST ALT Alkaline Phosphatase Creatine Kinase Troponin I C-Reactive Protein B-Natriuretic Peptide Total Protein Albumin Triglycerides Cholesterol Total LDL Cholesterol HDL Cholesterol Vitamin B12 TSH Urine Color Urine Appearance Urine pH Ur Specific [place] Urine Protein Urine Glucose (UA) Urine Ketones Urine Blood Urine Nitrite Urine Bilirubin Urine Urobilinogen Ur Leukocyte Esterase Ur Random Creatinine 223.0 H Ur Random Urea Nitrogn 1309 H RPR Titer Blood Type Antibody Screen A/P: 88 M h/o Afib on AC, FLASH not compliant with CPAP, depression admitted for generalized weakness and unsteadiness. Orthostatics positive on exam. Plan: Keep overnight hold Diltiazem as this is likely causing his orthostasis Fall precautions Cont. Asia Morris Outpatient follow up with sleep clinic on discharge for CPAP titration management as patient endorses trouble with CPAP machine. DVT ppx: Eliwallaceis Heart healthy diet Fall precautions 24 hour discharge notice General: Yes: Chills, Other Physical Examination Vital Signs: Vital Signs Temperature 98.2 F 03/15/19 15:04 Pulse Rate 58 L 03/15/19 15:04 Respiratory Rate 20 03/15/19 15:04 Blood Pressure 92/47 L 03/15/19 15:04 O2 Sat by Pulse Oximetry (%) 97 03/15/19 13:00 Labs: CBC, BMP 03/15/19 08:20 03/15/19 08:20
[2019-03-15] MEDS ORDERED: MIRTAZAPINE 15 MG TABLET (FP) PO SCH (22:00)
[2019-03-15] MEDS ORDERED: ROSUVASTATIN CA 5 MG TABLET (FP) PO SCH (22:00)
--- NOTE | 2019-03-16 08:17 | DS ---
Physical Examination Vital Signs: Vital Signs Temperature 97.5 F L 03/16/19 06:00 Pulse Rate 65 03/16/19 06:00 Respiratory Rate 20 03/16/19 06:00 Blood Pressure 120/77 03/16/19 06:00 O2 Sat by Pulse Oximetry (%) 97 03/15/19 21:00 Constitutional: Yes: Well Nourished, No Distress, Calm Eyes: Yes: Conjunctiva Clear, EOM Intact HENT: Yes: Atraumatic, Normocephalic Neck: Yes: Supple Cardiovascular: Yes: Regular Rate and Rhythm Respiratory: Yes: Regular, CTA Bilaterally Gastrointestinal: Yes: Soft. No: Tenderness Edema: No ...Motor Strength: WNL Labs: CBC, BMP 03/15/19 08:20 03/15/19 08:20 Discharge Summary Problems reviewed: Yes Reason For Visit: ACUTE KIDNEY INJURY, HEART FAILURE Current Active Problems ILIANA (acute kidney injury) (Acute) Gait instability (Acute) Heart failure (Acute) Hospital Course: Patient seen and examined at bedside this morning during my rounds on the morning of his discharge. He has no complaints at this time. Is dressed and pacing around his room and the hallway waiting to go home. He denies nausea vomiting fever chills chest pain or SOB. 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 He stated he felt "foggy" when he presented to the hospital and was unable to walk as far as he usually is without getting fatgued. He was noted to have acute renal failure on admission which resolved with IVF. Patient endorsed he wasn't taking much fluids per oral as well as not having a great appetite recently. It was felt that his cardizem was contributing to his symptoms and was discontinued by the previous providers. Patient is currently rate controlled on metoprolol. He ambulated with me this morning was did well and was asymptomatic. Overall his clinical condition has improved and he is stable for discharge. He was prescribed a walker. He was counselled on symptoms he should look out for and how to safely get up from a seated or lying position. Counselled on hydrating himself. Counselled on the importance of following up with PMD and agricultural commodities inspector. Also endorsed to him that his non compliance with with CPAP at night for his FLASH may be contributing to his symptoms. Patient verbalized understanding. THis discharge took me 32 minutes Condition: Improved - Instructions Diet, Activity, Other Instructions: you were in the hospital for having weakness and trouble walking far distances. Please stop taking the cardizem (diltiazem). Continue all the other medications. follow up with your primary care doctor and agricultural commodities inspector for post hospitalization discharge follow up. Keep yourself hydrated. when you stand up from a seated or laying position get up slowly and have something to hold on to. No abrupt positional changes. If you have worsening of your symptoms or you have nausea vomiting fever chills chest pain shortness of breath lightheadedness or dizziness then please go to the nearest emergency room but do not drive yourself like you did this time. if you do not have someone to drive you then call 911. Please follow up with a sleep doctor for evaluation of your obstructive sleep apnea. Referrals: Tia Richards MD [Primary Care Provider] - 1 Week Gage Vallejo MD [Staff Physician] - 1 Month (follow up within the next month to have a sleep study done and to be evaluated ) Disposition: HOME - Home Medications Comprehensive Discharge Medication List: Ambulatory Orders Apixaban [Eliquis -] 5 mg PO BID #60 tablet 01/07/18 Mirtazapine [Remeron -] 7.5 mg PO HS #30 tablet 01/07/18 Calcium Carbonate/Vitamin D3 [Calcium 600-Vit D3 200 Tablet] 1 each PO DAILY Fluticasone Propionate [Flovent Diskus] 50 mcg IH DAILY 01/19/18 Metoprolol Succinate [Toprol XL -] 50 mg PO BID tab.sr.24h 01/22/18 Rosuvastatin [Crestor -] 5 mg PO DAILY 03/15/19 Walker [Ultra-Light Rollator] 1 each MC DAILY #1 each 03/15/19 This patient is new to me today: Yes Date on this admission: 03/16/19 Emergency Visit: Yes ED Registration Date: 03/14/19 Care time: The patient presented to the Emergency Department on the above date and was hospitalized for further evaluation of their emergent condition. Critical Care patient: No - Discharge Referral Referred to [facility] No
[2019-03-16] MEDS ORDERED: PT OWN MED DRAWER 7, Y5N ONE (09:26)
[2019-03-16] MEDS: APIXABAN 5 MG TABLET PO SCH (09:31)
[2019-03-16] MEDS: CALCIUM 500MG/VIT-D 200 UNITS COMBO TABLET (FP) PO SCH (09:31)
[2019-03-16 10:28] VITALS: BP 117/81; PULSE 64; TEMP 97.6
== END 2019-03-16 10:05 | disposition home or self-care (01) | DRG 683 ==
LOC: JER 20:34 → JERBED 23:42 → J5S 03-15 03:56
PROVIDERS: ADMIT Internal Medicine; ATTEND Internal Medicine
DX: N17.9 Acute kidney failure, unspecified (principal); A69.20 Lyme disease, unspecified; I50.9 Heart failure, unspecified; I48.91 Unspecified atrial fibrillation; G47.30 Sleep apnea, unspecified; E78.5 Hyperlipidemia, unspecified; R53.82 Chronic fatigue, unspecified; G47.33 Obstructive sleep apnea (adult) (pediatric); R26.9 Unspecified abnormalities of gait and mobility; F32.9 Major depressive disorder, single episode, unspecified; Z86.73 Personal history of transient ischemic attack (TIA), and cerebral infarction without residual deficits; Z88.0 Allergy status to penicillin
CPT/HCPCS: 36415; 70450-TC; 71046-TC-FY; 80053; 81003; 82465; 82550; 82565; 82607; 82962; 83718; 83721; 83735; 83880; 84100; 84443; 84478; 84484; 84540; 85025; 85610; 85651; 85730; 86140; 86593; 86850; 86900; 86901; 87086; 93005; 93010; 97116-GP; 97162-GP; 99285-25; J7030

== ENCOUNTER 2019-03-29 11:27 | Emergency (ER) | payer OTHER, BC ==
[2019-03-29 11:39] VITALS: BMI 27.3
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
[2019-03-29 12:33] LABS: HEMATOCRIT 43.2 % (35.4-49); HEMOGLOBIN 14.7 GM/dL (11.7-16.9); MCH 31.9 pg (25.7-33.7); MCHC 34.1 g/dl (32.0-35.9); MEAN CELL VOLUME 93.5 fl (80-96); MEAN PLT VOLUME 8.5 fl (7.5-11.1); PLATELET COUNT 239 K/MM3 (134-434); RBC 4.62 M/mm3 (4.00-5.60); WHITE BLOOD COUNT 9.1 K/mm3 (4.0-10.0)
[2019-03-29 12:56] LABS: INR 1.5 (0.83-1.09); PROTHROMBIN TIME (PATIENT) 17.8 SEC (9.7-13.0)
[2019-03-29 12:59] LABS: ACTIVATED PTT 34.4 SECONDS (25.2-36.5)
[2019-03-29 13:01] LABS: ALBUMIN 3.3 g/dl (3.4-5.0); BILIRUBIN,TOTAL 0.5 mg/dL (0.2-1); BLOOD UREA NITROGEN 25.7 mg/dL (7-18); CALCIUM 9.1 mg/dL (8.5-10.1); CREATININE 1.1 mg/dL (0.55-1.3); TOT PROT 6.9 g/dl (6.4-8.2)
[2019-03-29] MEDS ORDERED: ACETAMINOPHEN 325 MG TABLET (FP) PO ONE (13:25)
[2019-03-29] MEDS ORDERED: ACETAMINOPHEN 325 MG TABLET (FP) ONE (13:33)
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
[2019-03-29 15:58] VITALS: TEMP 98
[2019-03-29 19:02] VITALS: BP 118/82; PULSE 82
== END 2019-03-29 19:00 | disposition home or self-care (01) ==
LOC: JER 11:27
DX: S12.691D Other nondisplaced fracture of seventh cervical vertebra, subsequent encounter for fracture with routine healing (principal); V49.9XXD Car occupant (driver) (passenger) injured in unspecified traffic accident, subsequent encounter; I48.91 Unspecified atrial fibrillation; Z79.01 Long term (current) use of anticoagulants; G47.33 Obstructive sleep apnea (adult) (pediatric); R53.82 Chronic fatigue, unspecified; E78.5 Hyperlipidemia, unspecified; A69.20 Lyme disease, unspecified; K21.9 Gastro-esophageal reflux disease without esophagitis; Z88.0 Allergy status to penicillin
CPT/HCPCS: 36415; 72141-TC; 80053; 85027; 85610; 85730; 86850; 86900; 86901; 99284-25

== ENCOUNTER 2019-04-02 15:47 | Inpatient (IN) | payer OTHER, BC ==
[2019-04-02 16:01] VITALS: BMI 27.0
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
[2019-04-02 17:29] LABS: BASO % 0.7 % (0-2.0); EOS % 1.6 % (0-4.5); HEMOGLOBIN 15.5 GM/dL (11.7-16.9); LYMPH % 25.3 % (8-40); MCH 31.2 pg (25.7-33.7); MEAN CELL VOLUME 94.3 fl (80-96); MEAN PLT VOLUME 9.2 fl (7.5-11.1); MONO % 8.9 % (3.8-10.2); NEUT % 63.5 % (42.8-82.8); PLATELET COUNT 196 K/MM3 (134-434); RBC 4.98 M/mm3 (4.00-5.60); RDW 14.2 % (11.9-15.9)
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
[2019-04-02] MEDS ORDERED: MORPHINE SULFATE 2 MG/ML VIAL IVPUSH PRN (17:51)
[2019-04-02] MEDS ORDERED: ACETAMINOPHEN 1000 MG/100 ML VIAL (NON FORMULARY) IVPB PRN (17:51)
[2019-04-02 17:55] LABS: ALBUMIN 3.6 g/dl (3.4-5.0); BILIRUBIN,TOTAL 0.8 mg/dL (0.2-1); BLOOD UREA NITROGEN 22.6 mg/dL (7-18); CALCIUM 9.5 mg/dL (8.5-10.1); CREATININE 1.1 mg/dL (0.55-1.3); POTASSIUM 5.6 mmol/L (3.5-5.1); TOT PROT 7.5 g/dl (6.4-8.2)
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
[2019-04-02] MEDS ORDERED: CALCIUM GLUCONATE 10% - 1,000 MG/10 ML VIAL IVPB ONE (18:05)
[2019-04-02] MEDS ORDERED: SODIUM ZIRCONIUM CYCLOSILICATE (LOKELMA) 5 GM PACKET PO SCH (18:30)
[2019-04-02] MEDS: ROSUVASTATIN CA 5 MG TABLET (FP) PO SCH (21:34)
[2019-04-02] MEDS: APIXABAN 5 MG TABLET PO SCH (21:34)
[2019-04-02] MEDS: MIRTAZAPINE 15 MG TABLET (FP) PO SCH (21:34)
[2019-04-02 23:30] LABS: PH,URINE 6.5 (5.0-8.0); URINE APPEARANCE CLEAR; URINE BILIRUBIN NEGATIVE (NEGATIVE); URINE COLOR YELLOW; URINE GLUCOSE (UA) NEGATIVE (NEGATIVE); URINE KETONE NEGATIVE (NEGATIVE); URINE LEUK ESTERASE NEGATIVE (NEGATIVE); URINE NITRITE NEGATIVE (NEGATIVE); URINE PROTEIN NEGATIVE (NEGATIVE)
[2019-04-03 09:03] LABS: HEMATOCRIT 44.3 % (35.4-49); HEMOGLOBIN 14.9 GM/dL (11.7-16.9); MCH 31.3 pg (25.7-33.7); MCHC 33.6 g/dl (32.0-35.9); MEAN CELL VOLUME 93.1 fl (80-96); MEAN PLT VOLUME 8.8 fl (7.5-11.1); PLATELET COUNT 217 K/MM3 (134-434); RBC 4.76 M/mm3 (4.00-5.60); WHITE BLOOD COUNT 6.8 K/mm3 (4.0-10.0)
[2019-04-03 09:19] LABS: INR 1.53 (0.83-1.09); PROTHROMBIN TIME (PATIENT) 18.1 SEC (9.7-13.0)
[2019-04-03 09:21] LABS: ACTIVATED PTT 36.6 SECONDS (25.2-36.5)
[2019-04-03 09:25] LABS: ALBUMIN 3.4 g/dl (3.4-5.0); BILIRUBIN,TOTAL 0.7 mg/dL (0.2-1); BLOOD UREA NITROGEN 20.7 mg/dL (7-18); CALCIUM 9.6 mg/dL (8.5-10.1); CREATININE 1.1 mg/dL (0.55-1.3); MAGNESIUM 2.3 mg/dL (1.8-2.4); PHOSPHOROUS 3.6 mg/dL (2.5-4.9); POTASSIUM 4.3 mmol/L (3.5-5.1)
[2019-04-03] MEDS: APIXABAN 5 MG TABLET PO SCH ×2 (10:16→21:43)
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
--- NOTE | 2019-04-03 17:41 | EKG ---
Test Reason : Blood Pressure : / mmHG Vent. Rate : 081 BPM Atrial Rate : 267 BPM P-R Int : 000 ms QRS Dur : 074 ms QT Int : 378 ms P-R-T Axes : 228 -31 022 degrees QTc Int : 439 ms ATRIAL FLUTTER WITH VARIABLE A-V BLOCK LEFT AXIS DEVIATION ABNORMAL ECG WHEN COMPARED WITH ECG OF 14-MAR-2019 23:17, NO SIGNIFICANT CHANGE WAS FOUND Confirmed by SISSY MAC, AISHA ([id number]) on 04/03/2019 5:40:55 PM Referred By: Confirmed By:AISHA SHEEHAN MD
[2019-04-03] MEDS: MIRTAZAPINE 15 MG TABLET (FP) PO SCH (21:43)
[2019-04-03] MEDS: ROSUVASTATIN CA 5 MG TABLET (FP) PO SCH (21:43)
[2019-04-04 08:10] LABS: BLOOD UREA NITROGEN 22.1 mg/dL (7-18); POTASSIUM 4.5 mmol/L (3.5-5.1)
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
[2019-04-04] MEDS: APIXABAN 5 MG TABLET PO SCH ×2 (09:47→21:57)
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
[2019-04-04] MEDS: ROSUVASTATIN CA 5 MG TABLET (FP) PO SCH (21:57)
[2019-04-04] MEDS: MIRTAZAPINE 15 MG TABLET (FP) PO SCH (21:57)
[2019-04-05 09:14] LABS: BLOOD UREA NITROGEN 19.2 mg/dL (7-18); CALCIUM 9.3 mg/dL (8.5-10.1); CREATININE 0.9 mg/dL (0.55-1.3); POTASSIUM 4.2 mmol/L (3.5-5.1)
[2019-04-05] MEDS: APIXABAN 5 MG TABLET PO SCH (10:55)
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
[2019-04-05 16:36] VITALS: BP 122/77; PULSE 87; TEMP 97.8
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
== END 2019-04-05 18:10 | DRG 552 ==
LOC: JER 15:47 → JERBED 16:21 → J5S 18:21
PROVIDERS: ADMIT Internal Medicine
DX: S12.690A Other displaced fracture of seventh cervical vertebra, initial encounter for closed fracture (principal); M50.03 Cervical disc disorder with myelopathy, cervicothoracic region; I48.92 Unspecified atrial flutter; I48.91 Unspecified atrial fibrillation; G47.30 Sleep apnea, unspecified; K21.9 Gastro-esophageal reflux disease without esophagitis; E78.00 Pure hypercholesterolemia, unspecified; R53.82 Chronic fatigue, unspecified; E87.5 Hyperkalemia; G47.33 Obstructive sleep apnea (adult) (pediatric); F32.9 Major depressive disorder, single episode, unspecified; M54.2 Cervicalgia; M48.03 Spinal stenosis, cervicothoracic region; Z86.73 Personal history of transient ischemic attack (TIA), and cerebral infarction without residual deficits; V49.88XA Car occupant (driver) (passenger) injured in other specified transport accidents, initial encounter; Y92.488 Other paved roadways as the place of occurrence of the external cause
CPT/HCPCS: 36415; 70450-TC; 72125-TC; 80048; 80053; 81003; 83735; 84100; 84132; 85025; 85027; 85610; 85730; 86850; 86900; 86901; 93005; 93010; 97116-GP; 97163-GP; 99283-25; J0131

== ENCOUNTER 2019-05-22 16:20 | Emergency (ER) | payer OTHER, BC ==
--- NOTE | 2019-05-22 16:24 | PDOC ---
Rapid Medical Evaluation Time Seen by Provider: 05/22/19 16:23 Medical Evaluation: Allergies Allergy/AdvReac Type Severity Reaction Status Date / Time Penicillins Allergy Severe throat Verified 04/02/19 16:01 swelling 05/22/19 16:23 I have performed a brief in-person evaluation of this patient. The patient presents with a chief complaint of: pt with hx of afib (on Eliquis, Toprol, diltiazem), "chronic fatigue", sleep apnea, lyme dz presents with worsening fatigue today Pertinent physical exam findings: lungs CTAB, VSS I have ordered the following: EKG, labs The patient will proceed to the ED for further evaluation. Discharge Disposition - Diagnosis Fatigue - Referrals - Patient Instructions - Post Discharge Activity
[2019-05-22 16:29] VITALS: BMI 24.3
[2019-05-22 17:54] LABS: BASO % 0.9 % (0-2.0); EOS % 5.3 % (0-4.5); HEMATOCRIT 44.8 % (35.4-49); LYMPH % 26.7 % (8-40); MCH 31.7 pg (25.7-33.7); MCHC 33.4 g/dl (32.0-35.9); MEAN CELL VOLUME 94.9 fl (80-96); MEAN PLT VOLUME 9.5 fl (7.5-11.1); MONO % 8.7 % (3.8-10.2); NEUT % 58.4 % (42.8-82.8); RBC 4.72 M/mm3 (4.00-5.60); RDW 15.2 % (11.9-15.9); WHITE BLOOD COUNT 9.5 K/mm3 (4.0-10.0)
[2019-05-22 18:25] LABS: ALBUMIN 3.5 g/dl (3.4-5.0); ALK PHOS 71 U/L (45-117); ANION GAP 5 MMOL/L (8-16); BILIRUBIN,TOTAL 0.4 mg/dL (0.2-1); BLOOD UREA NITROGEN 21.3 mg/dL (7-18); CALCIUM 9.2 mg/dL (8.5-10.1); CHLORIDE 112 mmol/L (98-107); CO2 25 mmol/L (21-32); CREATININE 1.1 mg/dL (0.55-1.3); GLUCOSE,RANDOM 139 mg/dL (74-106); POTASSIUM 4.4 mmol/L (3.5-5.1); SGOT/AST 27 U/L (15-37); SGPT/ALT 47 U/L (13-61); SODIUM 143 mmol/L (136-145); TOT PROT 6.9 g/dl (6.4-8.2)
[2019-05-22 18:28] LABS: PLATELET COUNT 154 K/MM3 (134-434); PLATELET ESTIMATE DECREASED
[2019-05-22 18:47] LABS: URINE APPEARANCE CLEAR; URINE BILIRUBIN NEGATIVE (NEGATIVE); URINE COLOR DK YELLOW; URINE GLUCOSE (UA) NEGATIVE (NEGATIVE); URINE KETONE NEGATIVE (NEGATIVE); URINE LEUK ESTERASE NEGATIVE (NEGATIVE); URINE NITRITE NEGATIVE (NEGATIVE); URINE PROTEIN NEGATIVE (NEGATIVE)
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
[2019-05-23 00:44] LABS: N-TERMINAL BNP 1216.9 pg/ml (5-450)
[2019-05-23 06:28] VITALS: BP 100/69; PULSE 92; TEMP 97
--- NOTE | 2019-05-23 06:51 | PDOC ---
*Physical Exam - Vital Signs Last Vital Signs Temp Pulse Resp BP Pulse Ox 97.0 F L 92 H 16 100/69 99 05/23/19 06:26 05/23/19 06:26 05/23/19 06:26 05/23/19 06:26 05/23/19 06:26 ED Treatment Course - LABORATORY CBC & Chemistry Diagram: 05/22/19 17:00 05/22/19 17:00 - ADDITIONAL ORDERS Additional order review: Laboratory Results 05/22/19 23:18 Creatine Kinase 162 Creatine Kinase Index 1.5 CK-MB (CK-2) 2.5 Troponin I < 0.02 B-Natriuretic Peptide 1216.9 H 05/22/19 17:00 RBC 4.72 MCV 94.9 MCHC 33.4 RDW 15.2 MPV 9.5 Neutrophils % 58.4 Lymphocytes % 26.7 Monocytes % 8.7 Eosinophils % 5.3 H D Basophils % 0.9 Medical Decision Making - Medical Decision Making 05/23/19 06:50 Patient wishes to go home. Will make a call to be picked up.. Discharge - Discharge Information Problems reviewed: Yes Clinical Impression/Diagnosis: Dizziness Condition: Stable Disposition: HOME - Admission No - Follow up/Referral - Patient Discharge Instructions Patient Printed Discharge Instructions: Combating Dizziness in Older Adults Additional Instructions: Come back to the emergency department for any new, worsening or concerning symptoms. - Post Discharge Activity
--- NOTE | 2019-05-23 14:19 | EKG ---
Test Reason : Blood Pressure : / mmHG Vent. Rate : 093 BPM Atrial Rate : 093 BPM P-R Int : 000 ms QRS Dur : 074 ms QT Int : 360 ms P-R-T Axes : 000 -10 056 degrees QTc Int : 447 ms ATRIAL FIBRILLATION Confirmed by KAREN VALENZUELA MD ([id number]) on 05/23/2019 2:18:45 PM Referred By: Confirmed By:KAREN VALENZUELA MD
== END 2019-05-23 06:59 | disposition home or self-care (01) ==
LOC: JER 16:20
DX: R42 Dizziness and giddiness (principal)
CPT/HCPCS: 36415; 70450-TC; 71045-TC-FY; 80053; 81003; 82550; 82553; 83880; 84484; 85025; 87086; 93005; 93010; 99285-25

== ENCOUNTER 2019-06-02 09:54 | Inpatient (IN) | payer OTHER, BC ==
--- NOTE | 2019-06-02 10:01 | PDOC ---
History of Present Illness - General History Source: Patient - History of Present Illness Initial Comments: 06/02/19 10:03 89 y/o male with "I don't feel well" H/o MDD, HTN, AFib (on Eliquis, Dilt) Non-specific symptoms including weakness, depression, head fullness have been ongoing for a few months and worsening. Reports that even though he is able to complete his ADL's he feels like he doesn 't want to do so. Lives alone and states he sometimes eats cereal or cooks eggs but mostly eats at restaurants. A friend came and took him to a diner last night. States he has no family but has friends who sometimes visit him. Called his rabbi this morning and asked him to bring him to the hospital. As per EMR, patient evaluated in our ED in 05/2019 for weakness with negative Head CT, unremarkable labs including Troponin (-) and EKG. Discharged home at his request - plan was to admit for SW consult and full evaluation of weakness. <Julia Camara - Last Filed: 06/02/19 14:01> <Josselyn Doyle - Last Filed: 06/02/19 16:20> - General Chief Complaint: Weakness Stated Complaint: WEAKNESS Past History - Past Medical History Cardiac Disorders: Yes (AFIB) COPD: Yes (SLEEP APNEA) GI Disorders: Yes (GERD) Hypercholesterolemia: Yes - Surgical History Orthopedic Surgery: Yes (R TSR) - Immunization History Immunization Up to Date: Yes - Psycho Social/Smoking Cessation Hx Smoking History: Never smoked Have you smoked in the past 12 months: No Hx Alcohol Use: No Drug/Substance Use Hx: No Substance Use Type: None Hx Substance Use Treatment: No <Julia Camara - Last Filed: 06/02/19 14:01> <Josselyn Doyle - Last Filed: 06/02/19 16:20> - Past Medical History Allergies/Adverse Reactions: Allergies Allergy/AdvReac Type Severity Reaction Status Date / Time Penicillins Allergy Severe throat Verified 06/02/19 10:00 swelling Home Medications: Ambulatory Orders Apixaban [Eliquis -] 5 mg PO BID #60 tablet 01/07/18 Rosuvastatin [Crestor -] 5 mg PO HS 03/15/19 Docusate Sodium [Docusate 100 mg] 2 tab PO HS PRN 06/02/19 Metoprolol Succinate [Toprol Xl] 25 mg PO DAILY 06/02/19 Review of Systems - Review of Systems Constitutional: No: Chills, Fever HEENTM: No: Blurred Vision, Recent change in vision Respiratory: No: Cough, Shortness of Breath Cardiac (ROS): No: Chest Pain, Lightheadedness, Palpitations, Syncope ABD/GI: No: Constipated, Diarrhea, Nausea, Vomiting <Julia Camara - Last Filed: 06/02/19 14:01> - Review of Systems Able to Perform ROS?: Yes Musculoskeletal: No: Back Pain Integumentary: No: Bruising, Change in Color, Dryness, Erythema, Flushing, Rash Neurological: Yes: Weakness. No: Headache, Numbness, Paresthesia, Tingling, Tremors Psychiatric: Yes: Depression, Stressors Hematologic/Lymphatic: No: Anemia, Easy Bleeding, Easy Bruising All Other Systems: Reviewed and Negative <Josselyn Doyle - Last Filed: 06/02/19 16:20> *Physical Exam - Vital Signs Last Vital Signs Temp Pulse Resp BP Pulse Ox 97.2 F L 50 L 16 124/67 96 06/02/19 09:56 06/02/19 09:56 06/02/19 09:56 06/02/19 09:56 06/02/19 09:56 - Physical Exam General Appearance: Yes: Nourished, Appropriately Dressed HEENT: positive: Normal Voice, Hearing Grossly Normal Neck: positive: Trachea midline, Supple Respiratory/Chest: positive: Lungs Clear, Normal Breath Sounds Cardiovascular: positive: Regular Rate, S1, S2 Gastrointestinal/Abdominal: positive: Normal Bowel Sounds, Soft Extremity: positive: Normal Capillary Refill, Normal Inspection Integumentary: positive: Normal Color, Dry, Warm Neurologic: positive: chaplain II-XII NML intact, Fully Oriented, Alert <Julia Camara - Last Filed: 06/02/19 14:01> - Vital Signs Last Vital Signs Temp Pulse Resp BP Pulse Ox 97.2 F L 51 L 18 110/67 97 06/02/19 09:56 06/02/19 14:11 06/02/19 14:11 06/02/19 14:11 06/02/19 14:11 - Physical Exam Musculoskeletal: positive: Normal Inspection Extremity: positive: Normal Range of Motion Neurologic: positive: Depressed Affect <Josselyn Doyle - Last Filed: 06/02/19 16:20> ED Treatment Course - LABORATORY CBC & Chemistry Diagram: 06/02/19 10:15 06/02/19 10:24 <Julia Camara - Last Filed: 06/02/19 14:01> - LABORATORY CBC & Chemistry Diagram: 06/02/19 10:15 06/02/19 10:24 - ADDITIONAL ORDERS Additional order review: Laboratory Results 06/02/19 06/02/19 10:24 10:24 Sodium 140 Potassium 4.1 Chloride 107 Carbon Dioxide 26 Anion Gap 7 L BUN 19.3 H Creatinine 0.9 Est GFR (CKD-EPI)AfAm 88.07 Est GFR (CKD-EPI)NonAf 75.99 Random Glucose 119 H Calcium 8.8 Total Bilirubin 0.8 AST 15 ALT 33 Alkaline Phosphatase 61 Creatine Kinase 44 Troponin I < 0.02 Total Protein 6.5 Albumin 3.2 L TSH 1.41 D 06/02/19 10:15 RBC 4.05 MCV 93.4 MCHC 34.1 RDW 15.0 MPV 8.7 Neutrophils % 69.0 Lymphocytes % 18.2 D Monocytes % 9.4 Eosinophils % 3.0 Basophils % 0.4 - Medications Given in the ED: ED Medications Discontinued Medications Generic Name Dose Route Start Last Admin Trade Name Freq PRN Reason Stop Dose Admin Acetaminophen 1,000 mg 06/02/19 11:55 06/02/19 12:21 Ofirmev Injection - IVPB 06/02/19 11:56 1,000 mg ONCE ONE Administration Sodium Chloride 1,000 ml 06/02/19 11:56 06/02/19 12:21 Normal Saline - IV 06/02/19 11:57 1,000 ml ONCE ONE Administration <Josselyn Doyle - Last Filed: 06/02/19 16:20> Medical Decision Making - Medical Decision Making 06/02/19 10:32 89 y/o male with weakness, decreased appetite, c/o VS unremarkable Patient requires full evaluation of weakness as well as admission for evaluation of depression, not safe for discharge home. 06/02/19 11:56 Labs unremarkable including Troponin (-) x1. EKG w/o ischemic change as documented in EKG section of EMR 06/02/19 13:25 Case discussed w/Dr. Johnson - patient admitted for weakness, failure to thrive Patient reassessed @ bedside, VSS, talking on phone, tolerating PO intake. <Julia Camara - Last Filed: 06/02/19 14:01> Discharge - Discharge Information Problems reviewed: Yes - Admission Yes <Julia Camara - Last Filed: 06/02/19 14:01> - Admission Yes <Josselyn Doyle - Last Filed: 06/02/19 16:20> - Discharge Information Clinical Impression/Diagnosis: Weakness, Failure to thrive Condition: Fair
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
[2019-06-02 10:54] LABS: BASO % 0.4 % (0-2.0); HEMATOCRIT 37.8 % (35.4-49); HEMOGLOBIN 12.9 GM/dL (11.7-16.9); LYMPH % 18.2 % (8-40); MCH 31.9 pg (25.7-33.7); MCHC 34.1 g/dl (32.0-35.9); MEAN CELL VOLUME 93.4 fl (80-96); MEAN PLT VOLUME 8.7 fl (7.5-11.1); MONO % 9.4 % (3.8-10.2); PLATELET COUNT 153 K/MM3 (134-434); RBC 4.05 M/mm3 (4.00-5.60); WHITE BLOOD COUNT 7.4 K/mm3 (4.0-10.0)
[2019-06-02 11:13] LABS: ALBUMIN 3.2 g/dl (3.4-5.0); ALK PHOS 61 U/L (45-117); ANION GAP 7 MMOL/L (8-16); BILIRUBIN,TOTAL 0.8 mg/dL (0.2-1); BLOOD UREA NITROGEN 19.3 mg/dL (7-18); CALCIUM 8.8 mg/dL (8.5-10.1); CHLORIDE 107 mmol/L (98-107); CO2 26 mmol/L (21-32); CREATININE 0.9 mg/dL (0.55-1.3); GLUCOSE,RANDOM 119 mg/dL (74-106); POTASSIUM 4.1 mmol/L (3.5-5.1); SGOT/AST 15 U/L (15-37); SGPT/ALT 33 U/L (13-61); SODIUM 140 mmol/L (136-145); TOT PROT 6.5 g/dl (6.4-8.2)
[2019-06-02] MEDS ORDERED: ACETAMINOPHEN 1000 MG/100 ML VIAL (NON FORMULARY) IVPB ONE (11:55)
[2019-06-02] MEDS ORDERED: SODIUM CHLORIDE 0.9% 500 ML INFUS.BAG IV ONE (11:56)
[2019-06-02] MEDS ORDERED: ACETAMINOPHEN INJECTION 100 ML IVPB ONE (12:12)
[2019-06-02] MEDS ORDERED: DOCUSATE SODIUM 100 MG CAPSULE (FP) PO PRN (13:00)
[2019-06-02 15:29] VITALS: BMI 26.4
--- NOTE | 2019-06-02 17:26 | HP ---
CHIEF COMPLAINT: Unable to manage and weakness PCP:Dr. Mcmillan HISTORY OF PRESENT ILLNESS:This is a 81 years old male with past medical history of hypertension sleep apnea on CPAP history of Lyme disease hyperlipidemia and depression came to the ER and he been coming to the ER for last couple of months every month with complaint not feeling well unable to manage in the home.He said it is going worse for the last few months today he does not want to go home he will get treated he will get rehab he got he does not want to live alone anymore. ER course was notable for:Normal examination normal labs (1) (2) (3) Recent Travel:Denies PAST MEDICAL HISTORY:Hyperlipidemia atrial fibrillation history of sleep apnea on BiPAP machine. PAST SURGICAL HISTORY: Social History:He denies smoking alcohol or drug use. Smoking: Alcohol: Drugs: Allergies Penicillins Allergy (Severe, Verified 06/02/19 10:00) throat swelling HOME MEDICATIONS: Home Medications Medication Instructions Recorded Apixaban [Eliquis -] 5 mg PO BID #60 tablet 01/07/18 Rosuvastatin [Crestor -] 5 mg PO HS 03/15/19 Docusate Sodium [Docusate 100 mg] 2 tab PO HS PRN 06/02/19 Metoprolol Succinate [Toprol Xl] 25 mg PO DAILY 06/02/19 REVIEW OF SYSTEMS CONSTITUTIONAL: Absent: fever, chills, diaphoresis,Present generalized generalized weakness, malaise, loss of appetite, No weight change HEENT: Absent: rhinorrhea, nasal congestion, throat pain, throat swelling, difficulty swallowing, mouth swelling, ear pain, eye pain, visual changes CARDIOVASCULAR: Absent: chest pain, syncope, palpitations, irregular heart rate, lightheadedness , peripheral edema RESPIRATORY: Absent: cough, shortness of breath, dyspnea with exertion, orthopnea, wheezing, stridor, hemoptysis GASTROINTESTINAL: Absent: abdominal pain, abdominal distension, nausea, vomiting, diarrhea, constipation, melena, hematochezia GENITOURINARY: Absent: dysuria, frequency, urgency, hesitancy, hematuria, flank pain, genital pain MUSCULOSKELETAL: Absent: myalgia, arthralgia, joint swelling, back pain, neck pain SKIN: Absent: rash, itching, pallor HEMATOLOGIC/IMMUNOLOGIC: Absent: easy bleeding, easy bruising, lymphadenopathy, frequent infections ENDOCRINE: Absent: unexplained weight gain, unexplained weight loss, heat intolerance, cold intolerance NEUROLOGIC: Absent: headache, focal weakness or paresthesias, dizziness, unsteady gait, seizure, mental status changes, bladder or bowel incontinence PSYCHIATRIC: Absent: anxiety, depression, suicidal or homicidal ideation, hallucinations. PHYSICAL EXAMINATION Vital Signs - 24 hr 06/02/19 06/02/19 06/02/19 09:56 11:56 14:11 Temperature 97.2 F L Pulse Rate 50 L 68 Pulse Rate [ 51 L Right] Respiratory 16 18 18 Rate Blood Pressure 124/67 124/67 Blood Pressure 110/67 [Left Arm] O2 Sat by Pulse 96 97 97 Oximetry (%) GENERAL: Awake, alert, and fully oriented, in no acute distress. HEAD: Normal with no signs of trauma. EYES: Pupils equal, round and reactive to light, extraocular movements intact, sclera anicteric, conjunctiva clear. No lid lag. EARS, NOSE, THROAT: Ears normal, nares patent, oropharynx clear without exudates. Moist mucous membranes. NECK: Normal range of motion, supple without lymphadenopathy, JVD, or masses. LUNGS: Breath sounds equal, clear to auscultation bilaterally. No wheezes, and no crackles. No accessory muscle use. HEART: Irregular rate and rhythm, normal S1 and S2 without murmur, rub or gallop. ABDOMEN: Soft, nontender, not distended, normoactive bowel sounds, no guarding, no rebound, no masses. No hepatomegaly or splenomegaly. MUSCULOSKELETAL: Normal range of motion at all joints. No bony deformities or tenderness. No CVA tenderness. UPPER EXTREMITIES: 2+ pulses, warm, well-perfused. No cyanosis. No clubbing. No peripheral edema. LOWER EXTREMITIES: 2+ pulses, warm, well-perfused. No calf tenderness. No peripheral edema. NEUROLOGICAL: Cranial nerves II-XII intact. Normal speech. Normal gait. PSYCHIATRIC: Cooperative. Good eye contact. Appropriate mood and affect. SKIN: Warm, dry, normal turgor, no rashes or lesions noted, normal capillary refill. Laboratory Results - last 24 hr 06/02/19 06/02/19 06/02/19 10:15 10:24 10:24 WBC 7.4 RBC 4.05 Hgb 12.9 Hct 37.8 D MCV 93.4 MCH 31.9 MCHC 34.1 RDW 15.0 Plt Count 153 MPV 8.7 Absolute Neuts (auto) 5.1 Neutrophils % 69.0 Lymphocytes % 18.2 D Monocytes % 9.4 Eosinophils % 3.0 Basophils % 0.4 Nucleated RBC % 0 Sodium 140 Potassium 4.1 Chloride 107 Carbon Dioxide 26 Anion Gap 7 L BUN 19.3 H Creatinine 0.9 Est GFR (CKD-EPI)AfAm 88.07 Est GFR (CKD-EPI)NonAf 75.99 Random Glucose 119 H Calcium 8.8 Total Bilirubin 0.8 AST 15 ALT 33 Alkaline Phosphatase 61 Creatine Kinase 44 Troponin I < 0.02 Total Protein 6.5 Albumin 3.2 L TSH 1.41 D ASSESSMENT/PLAN: Failure to thrive and weakness Discussed with the ER and patient that he should go home but patient refused to go home he said he need to go to rehab somewhere. His blood work is normal will start physical therapy and he needed placement in nursing facility. Hypertension stable continue on diltiazem and Toprol Atrial fibrillation heart rate is stable continue Eliquis Toprol and diltiazem For depression history of and is feels very depressed not homicidal not suicidal requested psychiatric consult. Visit type - Emergency Visit Emergency Visit: Yes ED Registration Date: 06/02/19 Care time: The patient presented to the Emergency Department on the above date and was hospitalized for further evaluation of their emergent condition. - New Patient This patient is new to me today: Yes Date on this admission: 06/02/19 - Critical Care Critical Care patient: No
[2019-06-02] MEDS: ROSUVASTATIN CA 5 MG TABLET (FP) PO SCH (21:01)
[2019-06-02] MEDS: APIXABAN 5 MG TABLET PO SCH (21:01)
[2019-06-02] MEDS ORDERED: MELATONIN 5 MG TABLETS PO ONE (22:31)
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
--- NOTE | 2019-06-03 09:29 | EKG ---
Test Reason : Blood Pressure : / mmHG Vent. Rate : 049 BPM Atrial Rate : 049 BPM P-R Int : 174 ms QRS Dur : 072 ms QT Int : 484 ms P-R-T Axes : 057 -15 016 degrees QTc Int : 437 ms SINUS BRADYCARDIA WITH PREMATURE ATRIAL COMPLEXES OTHERWISE NORMAL ECG WHEN COMPARED WITH ECG OF 22-MAY-2019 17:21, SINUS RHYTHM HAS REPLACED ATRIAL FIBRILLATION VENT. RATE HAS DECREASED BY 44 BPM Confirmed by Kristi Andre ([id number]) on 06/03/2019 9:28:30 AM Referred By: Confirmed By:Kristi Andre
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
[2019-06-03] MEDS: metoPROLOL SUCCINATE 25 MG TAB.SR.24H (FP) PO SCH (09:48)
[2019-06-03] MEDS: APIXABAN 5 MG TABLET PO SCH ×2 (09:48→21:24)
[2019-06-03] MEDS: ROSUVASTATIN CA 5 MG TABLET (FP) PO SCH (21:24)
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
[2019-06-04 08:25] LABS: ALBUMIN 2.9 g/dl (3.4-5.0); BILIRUBIN,TOTAL 0.6 mg/dL (0.2-1); CALCIUM 8.7 mg/dL (8.5-10.1); CREATININE 0.8 mg/dL (0.55-1.3); POTASSIUM 3.8 mmol/L (3.5-5.1); TOT PROT 5.8 g/dl (6.4-8.2)
[2019-06-04] MEDS: APIXABAN 5 MG TABLET PO SCH ×2 (10:06→21:41)
[2019-06-04] MEDS: metoPROLOL SUCCINATE 25 MG TAB.SR.24H (FP) PO SCH (10:06)
--- NOTE | 2019-06-04 16:14 | CON.PSY ---
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 Chronic fatigue Syndrome. He came to the hospital c/o of not feeling well with non specific symptoms He was eager to talk this pm but is [place]- (he did not bring his hearing Aide to the hospital) making this visit challenging. 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 He admits to feeling depressed, not sleeping and is emotionally drained because he is juggling between two women who are in his life and he is a 'cheater." He has no energy and can sleep all day, he says. No hx of psych. hospitalizations. but is seeing a psychiatrist Jeanette Wilkerson at [phone]- She was called but did not answer and unable to leave a message. His Pharmacy at [facility] in [facility] was called and it was understood that he has no meds x 6 months. Previously he had been on Lexapro 5 mgs and then Wellbutrn lowdose 150 mgs was added. Family says that he hoards and that he does not take his medications as prescribed. They also states that he had an Aide but' things did not work out.' - Current Medications Current Medications: Active Medications Apixaban (Eliquis -) 5 mg PO BID [facility] Last Admin: 06/04/19 10:06 Dose: 5 mg Docusate Sodium (Colace -) 200 mg PO HS PRN PRN Reason: CONSTIPATION Last Admin: 06/03/19 21:30 Dose: 200 mg Metoprolol Succinate (Toprol Xl -) 25 mg PO DAILY [facility] Last Admin: 06/04/19 10:06 Dose: 25 mg Rosuvastatin Calcium (Crestor -) 5 mg PO HS [facility] Last Admin: 06/03/19 21:24 Dose: 5 mg - Allergies Allergies: Allergies Allergy/AdvReac Type Severity Reaction Status Date / Time Penicillins Allergy Severe throat Verified 06/02/19 10:00 swelling
[2019-06-04] MEDS ORDERED: MELATONIN 5 MG TABLETS PO ONE (20:27)
[2019-06-04] MEDS: ROSUVASTATIN CA 5 MG TABLET (FP) PO SCH (21:41)
--- NOTE | 2019-06-04 23:12 | PN ---
Teaching Attending Note Name of Resident: Calderon Ramirez ATTENDING PHYSICIAN STATEMENT I saw and evaluated the patient. I reviewed the resident's note and discussed the case with the resident. I agree with the resident's findings and plan as documented. SUBJECTIVE: OBJECTIVE: A/P: 88 M h/o FLASH, AF on eliquis, chronic fatigue syndrome, chronic lyme, HLD, MDD, anxiety who p/w generalized fatigue and weakness. Chronic fatigue syndrome w/ acute exacerbation, ?psych component reassurance, electrolytes stable, good strength UE and LE Psych consult Afib Rate controlled cont. Eliquis for AC FLASH CPAP QHS HLD cont. statin PT eval Med surg Psych consult DVT ppx: Eliquis
[2019-06-05 07:31] LABS: BASO % 0.4 % (0-2.0); EOS % 3.6 % (0-4.5); HEMATOCRIT 38.7 % (35.4-49); HEMOGLOBIN 13.4 GM/dL (11.7-16.9); LYMPH % 24.4 % (8-40); MCH 32.1 pg (25.7-33.7); MCHC 34.6 g/dl (32.0-35.9); MEAN CELL VOLUME 92.9 fl (80-96); MEAN PLT VOLUME 8.6 fl (7.5-11.1); MONO % 10.6 % (3.8-10.2); PLATELET COUNT 178 K/MM3 (134-434); RBC 4.17 M/mm3 (4.00-5.60); RDW 15.1 % (11.9-15.9); WHITE BLOOD COUNT 8.5 K/mm3 (4.0-10.0)
[2019-06-05 07:58] LABS: ALBUMIN 2.8 g/dl (3.4-5.0); BILIRUBIN,TOTAL 0.7 mg/dL (0.2-1); BLOOD UREA NITROGEN 14.4 mg/dL (7-18); CALCIUM 8.6 mg/dL (8.5-10.1); CREATININE 0.8 mg/dL (0.55-1.3); POTASSIUM 3.8 mmol/L (3.5-5.1)
[2019-06-05] MEDS ORDERED: PT OWN MED DRAWER 7, Y5N ONE (09:26)
[2019-06-05] MEDS: APIXABAN 5 MG TABLET PO SCH ×2 (09:52→21:46)
[2019-06-05] MEDS: metoPROLOL SUCCINATE 25 MG TAB.SR.24H (FP) PO SCH (09:53)
[2019-06-05] MEDS: ESCITALOPRAM OXALATE 10 MG TABLET PO SCH (09:53)
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
[2019-06-05] MEDS ORDERED: INSULIN (NOVOLOG) ASPART 100 UNITS/ML 10ML VIAL SQ ONE (18:30)
[2019-06-05] MEDS: ROSUVASTATIN CA 5 MG TABLET (FP) PO SCH (21:47)
[2019-06-06 07:30] VITALS: PULSE 77
[2019-06-06] MEDS: ESCITALOPRAM OXALATE 10 MG TABLET PO SCH (09:32)
[2019-06-06] MEDS: APIXABAN 5 MG TABLET PO SCH (09:34)
[2019-06-06] MEDS: metoPROLOL SUCCINATE 25 MG TAB.SR.24H (FP) PO SCH (09:35)
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
[2019-06-06 11:29] VITALS: BP 120/78; TEMP 98
== END 2019-06-06 10:30 | DRG 881 ==
LOC: JER 09:54 → JERBED 11:56 → J7W 14:58
PROVIDERS: ADMIT Internal Medicine
DX: F32.9 Major depressive disorder, single episode, unspecified (principal); I48.92 Unspecified atrial flutter; M84.48XA Pathological fracture, other site, initial encounter for fracture; I10 Essential (primary) hypertension; I48.91 Unspecified atrial fibrillation; K21.9 Gastro-esophageal reflux disease without esophagitis; G47.33 Obstructive sleep apnea (adult) (pediatric); E78.00 Pure hypercholesterolemia, unspecified; R62.7 Adult failure to thrive; Z68.30 Body mass index [BMI] 30.0-30.9, adult; R53.82 Chronic fatigue, unspecified; M41.80 Other forms of scoliosis, site unspecified; Z88.0 Allergy status to penicillin
CPT/HCPCS: 36415; 71045-TC-FY; 80053; 82550; 83036; 84443; 84484; 85025; 93005; 93010; 97116-GP; 97162-GP; 99285-25; J0131